=== PATIENT | female | born 1950 | race Native Hawaiian/Other Pacific Islander ===

== ENCOUNTER 2017-08-28 09:37 | Inpatient (IN) | payer MEDICARE ==
[2017-08-28 10:29] LABS: BASO # 0.1 K/uL (0.0-0.2); BASO % 0.8 % (0.0-2.0); EOS # 0.2 K/uL (0.0-0.7); EOS % 1.4 % (0.0-4.0); HEMOGLOBIN 10.9 g/dL (11.0-16.0); LYMPH # 0.7 K/uL (1.0-4.3); LYMPH % 5.3 % (20.0-40.0); MEAN CELL VOLUME 89.4 fL (81.0-99.0); MEAN CORPUSCULAR HEMOGLOBIN 31.5 pg (27.0-31.0); MEAN CORPUSCULAR HGB CONC 35.2 g/dL (33.0-37.0); MONO # 0.7 K/uL (0.0-0.8); NEUT # 12.2 K/uL (1.8-7.0); NEUT % 87.5 % (50.0-75.0); PLATELET COUNT 381 K/uL (130-400); RBC 3.45 Mil/uL (3.80-5.20); RED CELL DISTRIBUTION WIDTH 13.1 % (11.5-14.5)
[2017-08-28 10:41] LABS: INR 0.9; PROTHROMBIN TIME 10.5 SECONDS (9.7-12.2)
--- NOTE | 2017-08-28 10:55 | RAD ---
PROCEDURE: Left knee dated 08/28/2017. HISTORY: Pain. COMPARISON: No prior study available for comparison. FINDINGS: BONES: There is a a well-circumscribed -sharply marginated elliptical shaped lucency with a sclerotic peripheral rim with what appears represent a internal cartilaginous matrix. Lesion measures approximately 2.28 x 1.5 x 1.6 cm and is felt to represent a benign lesion; rule out chondromyxoid fibroma or possibly giant cell tumor. JOINTS: Mild tricompartmental degenerative osteoarthritis. Note is made of a well-circumscribed -sharply marginated elliptical shaped lucency with a sclerotic peripheral rim. . Rule out internal derangement. Rule out infection. JOINT EFFUSION: Very large suprapatellar joint effusion is present. Rule out internal derangement. Possibility of infection must be considered as well. OTHER FINDINGS: None. IMPRESSION: Large suprapatellar joint effusion. Rule out internal derangement versus infection. There is also a elliptical shaped lucent lesion within the medial femoral condyles that exhibits sclerotic rim what appears to be a with a cartilaginous and/or bony matrix. Rule out chondromyxoid fibroma or possibly giant cell tumor. Followup MRI is suggested
[2017-08-28 10:59] LABS: BANDS 1 % (0-2); EOSINOPHIL 1 % (0-4); LYMPHOCYTE 5 % (20-40); MONOCYTE 5 % (0-10); NEUTROPHIL 88 % (50-75); PLATELET ESTIMATE NORMAL (NORMAL); TOTAL CELLS COUNTED 100
[2017-08-28 11:00] LABS: ANISOCYTOSIS SLIGHT; HYPOCHROMIC SLIGHT; POLYCHROMIC SLIGHT
[2017-08-28 11:09] LABS: ALB/GLOB RATIO 1.1 (1.0-2.1); ALBUMIN 4.2 g/dL (3.5-5.0); CALCIUM 11.9 mg/dl (8.6-10.4)
--- NOTE | 2017-08-28 11:29 | C.PDOC ---
History Of Present Illness 67 year old female presents to the ED c/o atraumatic pain knee and swelling that occurred this morning [employer]. Patient undergoes peritoneal dialysis with daily exchanges. Patient offers no other complaints, fever, chills, nausea, vomit, diarrhea. Time Seen by Provider: 08/28/17 10:00 Chief Complaint (Nursing): Lower Extremity Problem/Injury History Per: Patient History/Exam Limitations: no limitations Onset/Duration Of Symptoms: Hrs Current Symptoms Are (Timing): Still Present Recent travel outside of the [place]: No Additional History Per: Patient - Knee Description Of Injury: Other (atraumatic) Currently Unable To: Bend Or Move Past Medical History Reviewed: Historical Data, Nursing Documentation, Vital Signs Vital Signs: Last Vital Signs Temp 98.2 F 08/28/17 13:26 Pulse 104 H 08/28/17 13:26 Resp 20 08/28/17 13:26 BP 149/95 H 08/28/17 13:26 Pulse Ox 100 08/28/17 13:26 - Medical History PMH: HTN, End Stage Renal Disease Surgical History: No Surg Hx Family History: States: Unknown Family Hx - Social History Hx Alcohol Use: No Hx Substance Use: No - Immunization History Hx Tetanus Toxoid Vaccination: No Hx Influenza Vaccination: Yes Hx Pneumococcal Vaccination: No Review Of Systems Constitutional: Negative for: Fever, Chills Cardiovascular: Negative for: Chest Pain Respiratory: Negative for: Shortness of Breath Gastrointestinal: Negative for: Abdominal Pain Musculoskeletal: Positive for: Leg Pain Skin: Negative for: Rash Neurological: Negative for: Weakness, Numbness Physical Exam - Physical Exam Appears: Non-toxic, No Acute Distress Skin: Normal Color, Warm, Dry Head: Atraumatic, Normacephalic Eye(s): bilateral: Normal Inspection Nose: No Discharge Oral Mucosa: Moist Neck: Normal ROM, Supple Extremity: Normal ROM, Tenderness (with effusion left knee ), No Calf Tenderness , Capillary Refill (< 2 seconds), Swelling (left knee ), Other (No redness in the skin, no coloric change) Pulses: Left Dorsalis Pedis: Normal, Right Dorsalis Pedis: Normal Neurological/Psych: Oriented x3, Normal Motor, Normal Sensation Gait: Steady ED Course And Treatment - Laboratory Results Result Diagrams: 08/28/17 10:25 08/28/17 10:25 O2 Sat by Pulse Oximetry: 100 (On RA) Pulse Ox Interpretation: Normal - Other Rad Left Knee X-Ray X-Ray: Viewed By Me, Read By Radiologist Interpretation: PROCEDURE: Left knee dated 08/28/2017. HISTORY: Pain. COMPARISON: No prior study available for comparison. FINDINGS: BONES: There is a a well-circumscribed -sharply marginated elliptical shaped lucency with a sclerotic peripheral rim with what appears represent a internal cartilaginous matrix. Lesion measures approximately 2.28 x 1.5 x 1.6 cm and is felt to represent a benign lesion; rule out chondromyxoid fibroma or possibly giant cell tumor. JOINTS: Mild tricompartmental degenerative osteoarthritis. Note is made of a well-circumscribed -sharply marginated elliptical shaped lucency with a sclerotic peripheral rim. . Rule out internal derangement. Rule out infection. JOINT EFFUSION: Very large suprapatellar joint effusion is present. Rule out internal derangement. Possibility of infection must be considered as well. OTHER FINDINGS: None. IMPRESSION: Large suprapatellar joint effusion. Rule out internal derangement versus infection. There is also a elliptical shaped lucent lesion within the medial femoral condyles that exhibits sclerotic rim what appears to be a with a cartilaginous and/or bony matrix. Rule out chondromyxoid fibroma or possibly giant cell tumor. Followup MRI is suggested Medical Decision Making Medical Decision Making: Assessment: hyponatremia, joint effusion Plan: * Left knee X-Ray * Lower extremities MRI * Blood culture * Rocephin 1 gm in 100 ml IVPB * Vancomycin 1 gm in 250 ml IVPB Discussed case with PMD Dr. Varner who requests and ortho consult by Dr. Carney. Radiologist suggest and MRI to be done. Disposition Discussed With : Pattie Locke-Gardenia Doctor Will See Patient In The: Hospital Counseled Patient/Family Regarding: Studies Performed, Diagnosis - Disposition Disposition: HOSPITALIZED Disposition Time: 11:29 Condition: FAIR - Clinical Impression Clinical Impression: Hyponatremia, Knee effusion, left - Scribe Statement The provider has reviewed the documentation as recorded by the Scribe Aaron Valentine All medical record entries made by the Scribe were at my direction and personally dictated by me. I have reviewed the chart and agree that the record accurately reflects my personal performance of the history, physical exam, medical decision making, and the department course for this patient. I have also personally directed, reviewed, and agree with the discharge instructions and disposition.
[2017-08-28] MEDS ORDERED: cefTRIAXone IV 1 gm in Dextros 50 ML IVPB ONE (13:21)
[2017-08-28] MEDS ORDERED: Vancomycin 1 GM in Sodium Chloride 0.9% 200 ML IVPB STA (13:28)
--- NOTE | 2017-08-28 17:39 | CP.PCM.HP ---
History of Present Illness - History of Present Illness History of Present Illness: This is a 67 y/o female with history of hypertension, ESRD on nightly peritoneal dialysis who was brought to the ER by family because of sudden pain and swelling of the L knee early this morning. Patient denies any history of trauma to he knee. She denies any history of fever. She claims that she is not using any anticoagulant when she dialyzes herself at night. No other areas of bleeding noted anywhere. Blood tests in the ER showed hyponatremia, hypercalcemia andelevated BUN/creatinine. Her BP was also reportedly quite elevated in the last few days [employer]. She was admitted for further evaluation and management. Present on Admission - Present on Admission Any Indicators Present on Admission: No History of DVT/PE: No History of Uncontrolled Diabetes: No Urinary Catheter: No Decubitus Ulcer Present: No Review of Systems - Review of Systems All systems: reviewed and no additional remarkable complaints except - Constitutional Constitutional: As Per HPI - EENT Eyes: As Per HPI Ears: As Per HPI, Abnormal Hearing - Gastrointestinal Gastrointestinal: As Per HPI, Belching - Musculoskeletal Musculoskeletal: Joint Swelling, Limited Range of Motion, Numbness ( ), Stiffness ( ) Past Patient History - Infectious Disease Hx of Infectious Diseases: None ( ) - Past Medical History & Family History Past Medical History?: Yes - Past Social History Smoking Status: Never Smoked Home Situation {Lives}: With Family ( ) - CARDIAC Hx Cardiac Disorders: No ( ) Hx Congestive Heart Failure: No Hx Hypertension: Yes - PULMONARY Hx Respiratory Disorders: No - NEUROLOGICAL Hx Neurological Disorder: No - RENAL Other/Comment: Patient is on peritoneal dialysis for the last five years. daily HS treatments. - ENDOCRINE/METABOLIC Hx Endocrine Disorders: No Hx Diabetes Mellitus Type 2: No - HEMATOLOGICAL/ONCOLOGICAL Hx Blood Disorders: No - MUSCULOSKELETAL/RHEUMATOLOGICAL Hx Arthritis: Yes - GASTROINTESTINAL Hx Gastrointestinal Disorders: No - PSYCHIATRIC Hx Psychophysiologic Disorder: No Hx Substance Use: No - SURGICAL HISTORY Hx Surgeries: Yes Other/Comment: peritoneal dialysis placement. protruding umbilical hernia repair. - ANESTHESIA Hx Anesthesia: Yes Hx Anesthesia Reactions: No Hx Malignant Hyperthermia: No Meds Allergies/Adverse Reactions: Allergies Allergy/AdvReac Type Severity Reaction Status Date / Time No Known Allergies Allergy Verified 08/28/17 09:47 Physical Exam - Constitutional Appears: No Acute Distress - Head Exam Head Exam: NORMOCEPHALIC - Eye Exam Eye Exam: Normal appearance - ENT Exam ENT Exam: Mucous Membranes Moist, Normal Exam - Respiratory Exam Respiratory Exam: Clear to Auscultation Bilateral, NORMAL BREATHING PATTERN - Cardiovascular Exam Cardiovascular Exam: REGULAR RHYTHM, +S1, +S2 - GI/Abdominal Exam GI & Abdominal Exam: Normal Bowel Sounds, Soft - Extremities Exam Extremities exam: Positive for: joint swelling Additional comments: L knee markedly swollen and tender to pressure, warm to touch. ROM reduced, R knee wnl - Neurological Exam Neurological exam: Alert, Oriented x3 - Psychiatric Exam Psychiatric exam: Normal Affect, Normal Mood - Skin Skin Exam: Normal Color, Warm Results - Vital Signs Recent Vital Signs: Last Vital Signs Temp 97.8 F 08/28/17 17:27 Pulse 104 H 08/28/17 15:07 Resp 20 08/28/17 15:07 BP 189/100 H 08/28/17 15:07 Pulse Ox 98 08/28/17 15:07 - Labs Result Diagrams: 08/29/17 11:31 08/29/17 07:27 Labs: Laboratory Results - last 24 hr 08/28/17 08/28/17 08/28/17 10:25 10:25 10:25 WBC 14.0 H RBC 3.45 L Hgb 10.9 L Hct 30.8 L MCV 89.4 MCH 31.5 H MCHC 35.2 RDW 13.1 Plt Count 381 MPV 7.0 L Neut % (Auto) 87.5 H Lymph % (Auto) 5.3 L [place] % (Auto) 5.0 Eos % (Auto) 1.4 Baso % (Auto) 0.8 Neut # (Auto) 12.2 H Lymph # (Auto) 0.7 L [place] # (Auto) 0.7 Eos # (Auto) 0.2 Baso # (Auto) 0.1 Neutrophils % (Manual) 88 H Band Neutrophils % 1 Lymphocytes % (Manual) 5 L Monocytes % (Manual) 5 Eosinophils % (Manual) 1 Platelet Estimate Normal Polychromasia Slight Hypochromasia (manual) Slight Anisocytosis (manual) Slight PT 10.5 INR 0.9 APTT 31 Sodium 123 L Potassium 3.6 Chloride 81 L Carbon Dioxide 23 Anion Gap 23 H BUN 33 H Creatinine 7.7 H* Est GFR ( Amer) 6 Est GFR (Non-Af Amer) 5 Random Glucose 128 H Calcium 11.9 H Total Bilirubin 0.6 AST 34 ALT 8 L Alkaline Phosphatase 110 Total Protein 8.1 Albumin 4.2 Globulin 3.9 Albumin/Globulin Ratio 1.1 Assessment & Plan (1) Knee effusion, left Assessment and Plan: R/O Hemarthrosis vs infection as possible causes of sudden knee swelling. Patient is afebrile at this time. Orthopedic consultation requested for possible drainage of effusion Question of antibiotic coverage despite lack of evidence for infectious cause at this time. Status: Acute (2) Hyponatremia Assessment and Plan: Na- 123. IVF held for now. Nephrology consultation also ordered. Status: Acute (3) ESRD (end stage renal disease) on dialysis Assessment and Plan: Patient on daily peritoneal dialysis. Nephrology consultation requested. Status: Acute (4) Hypertension Assessment and Plan: fluctuating. to restart back all his antihypertensive meds. Status: Acute (5) Hypercalcemia associated with chronic dialysis Status: Acute Decision To Admit - Pt Status Changed To: Hospital Disposition Of: Inpatient - Admit Certification Admit to Inpatient:: After my assessment, the patient will require hospitalization for at least two midnights. This is because of the severity of symptoms shown, intensity of services needed, and/or the medical risk in this patient being treated as an outpatient. - InPatient: Physician Admission Certification:: After my assessment, the patient will require hospitalization for at least two midnights. This is because of the severity of symptoms shown, intensity of services needed, and/or the medical risk in this patient being treated as an outpatient. - . Bed Request Type: Regular Admitting Physician: Pattie Hudson
--- NOTE | 2017-08-28 20:55 | CP.PCM.CON ---
History of Present Illness - History of Present Illness History of Present Illness: pt is seen and examined, full consult is dictated #[id number] 1. ESRD on ccpd ( cycler ? 5 lit x2 bags) 2. HTN 3. Left knee effusion will start manual with dianel solution 2.5% solution q 6 hrs check cmp in am follow up with ortho c/w current meds Past Patient History - Infectious Disease Hx of Infectious Diseases: None ( ) - Past Medical History & Family History Past Medical History?: Yes - Past Social History Smoking Status: Never Smoked Home Situation {Lives}: With Family ( ) - CARDIAC Hx Cardiac Disorders: No ( ) Hx Congestive Heart Failure: No Hx Hypertension: Yes - PULMONARY Hx Respiratory Disorders: No - NEUROLOGICAL Hx Neurological Disorder: No - RENAL Other/Comment: Patient is on peritoneal dialysis for the last five years. daily HS treatments. - ENDOCRINE/METABOLIC Hx Endocrine Disorders: No Hx Diabetes Mellitus Type 2: No - HEMATOLOGICAL/ONCOLOGICAL Hx Blood Disorders: No - MUSCULOSKELETAL/RHEUMATOLOGICAL Hx Arthritis: Yes - GASTROINTESTINAL Hx Gastrointestinal Disorders: No - PSYCHIATRIC Hx Psychophysiologic Disorder: No Hx Substance Use: No - SURGICAL HISTORY Hx Surgeries: Yes Other/Comment: peritoneal dialysis placement. protruding umbilical hernia repair. - ANESTHESIA Hx Anesthesia: Yes Hx Anesthesia Reactions: No Hx Malignant Hyperthermia: No Meds Allergies/Adverse Reactions: Allergies Allergy/AdvReac Type Severity Reaction Status Date / Time No Known Allergies Allergy Verified 08/28/17 09:47 - Medications Medications: Current Medications Acetaminophen (Tylenol 325mg Tab) 650 mg PO Q4 PRN PRN Reason: Pain, moderate (4-7) Last Admin: 08/28/17 17:27 Dose: 650 mg Calcitriol (Rocaltrol) 0.25 mcg PO DAILY [facility] Cinacalcet (Sensipar) 30 mg PO DAILY [facility] Hydrochlorothiazide (Microzide) 12.5 mg PO BID [facility] Last Admin: 08/28/17 17:14 Dose: 12.5 mg Losartan Potassium (Cozaar) 50 mg PO BID [place] Last Admin: 08/28/17 17:14 Dose: 50 mg Results - Vital Signs Recent Vital Signs: Last Vital Signs Temp 97.8 F 08/28/17 17:27 Pulse 104 H 08/28/17 15:07 Resp 20 08/28/17 15:07 BP 189/100 H 08/28/17 15:07 Pulse Ox 98 08/28/17 15:07 - Labs Result Diagrams: 08/28/17 10:25 08/28/17 10:25 Labs: Laboratory Results - last 24 hr 08/28/17 08/28/17 08/28/17 10:25 10:25 10:25 WBC 14.0 H RBC 3.45 L Hgb 10.9 L Hct 30.8 L MCV 89.4 MCH 31.5 H MCHC 35.2 RDW 13.1 Plt Count 381 MPV 7.0 L Neut % (Auto) 87.5 H Lymph % (Auto) 5.3 L [place] % (Auto) 5.0 Eos % (Auto) 1.4 Baso % (Auto) 0.8 Neut # (Auto) 12.2 H Lymph # (Auto) 0.7 L [place] # (Auto) 0.7 Eos # (Auto) 0.2 Baso # (Auto) 0.1 Neutrophils % (Manual) 88 H Band Neutrophils % 1 Lymphocytes % (Manual) 5 L Monocytes % (Manual) 5 Eosinophils % (Manual) 1 Platelet Estimate Normal Polychromasia Slight Hypochromasia (manual) Slight Anisocytosis (manual) Slight PT 10.5 INR 0.9 APTT 31 Sodium 123 L Potassium 3.6 Chloride 81 L Carbon Dioxide 23 Anion Gap 23 H BUN 33 H Creatinine 7.7 H* Est GFR ( Amer) 6 Est GFR (Non-Af Amer) 5 Random Glucose 128 H Calcium 11.9 H Total Bilirubin 0.6 AST 34 ALT 8 L Alkaline Phosphatase 110 Total Protein 8.1 Albumin 4.2 Globulin 3.9 Albumin/Globulin Ratio 1.1
--- NOTE | 2017-08-29 05:05 | CON ---
DATE: 08/28/2017 RENAL CONSULTATION LOCATION: The patient is located room 365, bed A. REQUESTED BY: Pattie Locke MD REASON FOR RENAL CONSULTATION: End-stage renal disease, on peritoneal dialysis cycler, for continuation of the dialysis. HISTORY OF PRESENT ILLNESS: Mrs. Cade is a 67 years old very pleasant elderly [place] female with a past medical history significant for longstanding hypertension for many years, end-stage renal disease, on peritoneal dialysis for the last 5 years following in [facility], was admitted with the chief complaints of left knee joint swelling and slight pain for the last few days. Denies any fever. Denies any cough. Denies any chest pain or palpitation. Denies any nausea, vomiting, diarrhea. Denies any abdominal pain. Last cycler was yesterday night. PAST MEDICAL HISTORY: Significant for hypertension for many many years and end-stage renal disease, on peritoneal dialysis times 5 years. PAST SURGICAL HISTORY Status post Tenckhoff catheter. ALLERGIES NO KNOWN DRUG ALLERGIES. MEDICATIONS: Home medications include losartan with hydrochlorothiazide 1 tablet daily 50 and 12.5 mg and Sensipar 30 mg p.o. daily. Her current medications in the hospital include losartan 50 mg p.o. b.i.d. and hydrochlorothiazide 12.5 mg p.o. b.i.d. and Sensipar 30 mg p.o. daily and Tylenol 650 mg p.o. every 4 hours p.r.n. SOCIAL HISTORY No smoking. No alcohol. No drugs. PERSONAL HISTORY: She is , and she has three daughters. She is a retired [employer]. FAMILY HISTORY: Not significant. REVIEW OF SYSTEMS: Significant for left knee joint swelling and slight pain. All other review of systems are reviewed and are negative. PHYSICAL EXAMINATION: VITAL SIGNS: As follows, as of 08/28/2017, blood pressure 149/95, pulse 104, respirations 20, temperature 98.2, saturation 100%. Height 5 feet 1 inch, weight is 144 pounds. BMI 27.2. GENERAL: Mrs. Cade is a 67 years old elderly [place] female, very pleasant, well-built, well-nourished, not in distress. HEENT: Pupils normal and reactive to light and accommodation. Conjunctivae pink. Sclerae anicteric. Tongue is moist. Trachea is midline. LUNGS: Symmetric on both sides. Bilateral breath sounds present. Clear on auscultation. CVS: [place] at the fifth intercostal space, midclavicular line. S1, S2 audible. No murmur or gallop. ABDOMEN: Normal in appearance. Soft, tympanic. No guarding. No rigidity. No hepatosplenomegaly. The patient has a Tenckhoff catheter present. [employer]: The patient is alert, awake, and oriented x3. Nonfocal neuro examination. Cranial nerves II through XII grossly intact. Sensory and motor system is within normal limits. EXTREMITIES: No cyanosis, no clubbing, no edema. Left knee joint, left knee joint was swollen and also slight tenderness and suprapatellar effusion is present. LABORATORY DATA: Include as follows, as of 08/28/2017, WBC 14, hemoglobin 10.9, hematocrit is 30.8, platelets 381. Neutrophils 88, bands 1, lymph 5, monos 5, and eosinophils 1. PT 10.5, INR 0.9, and PTT 31. Sodium 123, potassium 3.6, chloride 81, CO2 of 23, BUN 33, creatinine 7.7, glucose is 128, calcium 11.9. Total bili 0.6. AST 34, ALT 8, alkaline phos 110, total protein 8.1, albumin 4.2. The other reports, x-ray of the knee joint as of 08/28/2017, there is a well-circumscribed sharply marginated elliptical shaped lucency with a sclerotic peripheral rim with what appears representing internal cartilaginous matrix lesion, measures approximately 2.28 x 1.5 x 1.6 cm, and it was felt to represent a benign lesion, rule out chondromyxoid fibroma or possibly gentle tumor. MRI of knee report is pending. IMPRESSION: In summary, Mrs. Cade is a 67 years old elderly female with hypertension, end-stage renal disease, on peritoneal dialysis for 5 years with left knee swelling and slight pain for few days. 1. End-stage renal disease. Continue peritoneal dialysis daily. A cycler is not available in the hospital. We will continue manual exchanges. The patient wants to bring the machine if she needs to stay in the hospital for more than 1 or 2 days. We will continue manual exchanges 2 liters solution 2.5% every 6 hours with a dwelling time 10 minutes, and dwelling time is 5-1/2 hours and dwell out is 20 minutes, and also monitor I's and O's, intake and output. 2. Hypertension. Continue losartan and also hydrochlorothiazide. 3. Hyponatremia, most likely secondary to hydrochlorothiazide induced. 4. Hypercalcemia, most likely secondary to thiazide diuretics and also calcitriol, cannot rule out malignancy. PLAN: We will repeat labs in a.m., and also we will check PTH intact phosphorus level and PTH related peptide also. left knee effusion with lesion, rule out benign tumor, rule out malignancy, and also check serum uric acid level in a.m. Case discussed with Dr. Pattie Locke in rounds. We will follow with you. Thank you for allowing me to participate in your patient's care. Junior Deluca MD
[2017-08-29] MEDS ORDERED: Morphine 4 MG/ML VIAL IVP STA (06:06)
[2017-08-29 08:17] LABS: ALB/GLOB RATIO 1.1 (1.0-2.1); ALBUMIN 3.5 g/dL (3.5-5.0)
[2017-08-29] MEDS: Oxycodone/Acetaminophen 5/325 mg Tab PO PRN ×2 (09:17→20:15)
--- NOTE | 2017-08-29 10:43 | MRI ---
MRI left knee History: Left knee pain. Left knee swelling. Comparison: X-ray dated 08/28/2017 Technique: Multi-echo multiplanar sequences were performed through the left knee without the use of intravenous contrast. Findings: Motion artifact limits evaluation. Large suprapatellar joint effusion with associated synovial debris and hypertrophy. Moderate lobulated fluid intensity signal foci seen within the posterior knee within the soft tissues measuring 1.9 x 3.8 x 3.7 centimeters which may represent multilobulated synovial cyst and or ganglia. Thinning and attenuation of the visualized anterior cruciate ligament suggestive for a low grade sprain and or mild partial tearing. Posterior cruciate ligament is preserved. Transverse linear oblique signal seen within the body and posterior horn of the medial meniscus extending to the inferior articular surface suggestive for a tear. Globular increased signal seen within the posterior horn of the lateral meniscus. Low-grade sprain of the medial collateral ligament. Lateral collateral ligament complex structures are preserved. Mild distal quadriceps tendinopathy. Patellar tendon is preserved. Focal cartilage thinning and loss overlying the medial patellar facet. Focal cartilage thinning and loss involving the anterior to midportion of the medial compartment of the femorotibial joint spaces well as the anterior aspect of the lateral femoral condyle. Signal change in the adjacent marrow of the anterior aspect of the lateral femoral condyle demonstrating decreased T1 signal and increased STIR signal suggestive for osteochondral change. Additional considerations may include bone bruising versus subchondral osseous injury versus additional etiology. At the posterior aspect of the medial femoral condyle, there is a prominent lesion measuring 2.5 x 2.0 x 2.1 centimeters. The lesion is primarily cystic in appearance demonstrating increased T2 and STIR signal. There is some internal decreased T1 signal within the matrix with associated surrounding reactive edema. There is a suggestion of cortical discontinuity along the posterior cortex of the lesion. This may indicate some cortical disruption. Correlation with bony CT would be helpful to better evaluate the osseous matrix at this level. This is of uncertain clinical etiology and may represent a chondroid lesion such as a chondromyxoid fibroma versus additional etiology. Additional considerations may include a cystic bone lesion versus complex cystic bone lesion with associated cortical disruption posteriorly versus additional etiologies. Clinical correlation. Impression: Motion artifact limits evaluation. 1. Large suprapatellar joint effusion with associated synovial debris and hypertrophy. 2. At the posterior aspect of the medial femoral condyle, there is a prominent lesion measuring 2.5 x 2.0 x 2.1 centimeters. The lesion is primarily cystic in appearance demonstrating increased T2 and STIR signal. There is some internal decreased T1 signal within the matrix with associated surrounding reactive edema. There is a suggestion of cortical discontinuity along the posterior cortex of the lesion. This may indicate some cortical disruption. Correlation with bony CT would be helpful to better evaluate the osseous matrix at this level. This is of uncertain clinical etiology and may represent a chondroid lesion such as a chondromyxoid fibroma versus additional etiology. Additional considerations may include a cystic bone lesion versus complex cystic bone lesion with associated cortical disruption posteriorly versus additional etiologies. Clinical correlation. 3. Moderate lobulated fluid intensity signal foci seen within the posterior knee within the soft tissues measuring 1.9 x 3.8 x 3.7 centimeters which may represent multilobulated synovial cyst and or ganglia. 4. Thinning and attenuation of the visualized anterior cruciate ligament suggestive for a low grade sprain and or mild partial tearing. 5. Transverse linear oblique signal seen within the body and posterior horn of the medial meniscus extending to the inferior articular surface suggestive for a tear. 6. Globular increased signal seen within the posterior horn of the lateral meniscus. 7. Low-grade sprain of the medial collateral ligament. 8. Mild distal quadriceps tendinopathy. 9. Focal cartilage thinning and loss overlying the medial patellar facet. 10. Focal cartilage thinning and loss involving the anterior to midportion of the medial compartment of the femorotibial joint spaces well as the anterior aspect of the lateral femoral condyle. Signal change in the adjacent marrow of the anterior aspect of the lateral femoral condyle demonstrating decreased T1 signal and increased STIR signal suggestive for osteochondral change. Additional considerations may include bone bruising versus subchondral osseous injury versus additional etiology. These findings were preliminarily reported at 6:02 p.m. on 08/28/[address] Ananda Gonzalez from [facility].
[2017-08-29 11:41] LABS: BASO # 0.1 K/uL (0.0-0.2); BASO % 0.5 % (0.0-2.0); EOS # 0.1 K/uL (0.0-0.7); HEMOGLOBIN 9.4 g/dL (11.0-16.0); LYMPH # 0.7 K/uL (1.0-4.3); LYMPH % 5.7 % (20.0-40.0); MEAN CELL VOLUME 89.3 fL (81.0-99.0); MEAN CORPUSCULAR HEMOGLOBIN 31.9 pg (27.0-31.0); MEAN CORPUSCULAR HGB CONC 35.7 g/dL (33.0-37.0); MEAN PLATELET VOLUME 6.9 fL (7.2-11.7); MONO # 0.7 K/uL (0.0-0.8); MONO % 5.9 % (0.0-10.0); NEUT # 10.7 K/uL (1.8-7.0); NEUT % 86.9 % (50.0-75.0); PLATELET COUNT 313 K/uL (130-400); RBC 2.93 Mil/uL (3.80-5.20); RED CELL DISTRIBUTION WIDTH 12.9 % (11.5-14.5); WHITE BLOOD COUNT 12.3 K/uL (4.8-10.8)
[2017-08-29 11:47] LABS: FLUID TYPE SYNOVIAL FLUID
[2017-08-29 12:04] LABS: EOSINOPHIL 2 % (0-4); LYMPHOCYTE 7 % (20-40); MONOCYTE 5 % (0-10); NEUTROPHIL 86 % (50-75); TOTAL CELLS COUNTED 100
[2017-08-29 12:05] LABS: ANISOCYTOSIS SLIGHT; PLATELET ESTIMATE NORMAL (NORMAL)
[2017-08-29 12:06] LABS: TOXIC GRANULATION PRESENT
[2017-08-29] MEDS: Sodium Chloride 0.9% 1,000 ML IV SCH (12:10)
--- NOTE | 2017-08-29 12:27 | CP.PCM.PN ---
Subjective - Date & Time of Evaluation Date of Evaluation: 08/29/17 Time of Evaluation: 12:15 - Subjective Subjective: -patient comfortable lying down -finished peritoneal dialysis earlier today -Nephro consult appreciated Objective - Vital Signs/Intake and Output Vital Signs (last 24 hours): Temp Pulse Resp BP Pulse Ox 98.1 F 93 H 20 173/97 H 97 08/29/17 08:17 08/29/17 10:23 08/29/17 08:17 08/29/17 10:23 08/29/17 08:17 Intake and Output: 08/29/17 08/29/17 06:59 18:59 Intake Total 415 Balance 415 - Medications Medications: Current Medications Acetaminophen (Tylenol 325mg Tab) 650 mg PO Q4 PRN PRN Reason: Pain, moderate (4-7) Last Admin: 08/28/17 17:27 Dose: 650 mg Amlodipine Besylate (Norvasc) 5 mg PO DAILY [facility] Last Admin: 08/29/17 09:18 Dose: 5 mg Cinacalcet (Sensipar) 30 mg PO DAILY [facility] Last Admin: 08/29/17 09:18 Dose: 30 mg Heparin Sodium (Porcine) (Heparin) 5,000 units SC Q12 [facility] Last Admin: 08/29/17 09:26 Dose: 5,000 units Hydrochlorothiazide (Microzide) 12.5 mg PO BID [facility] Last Admin: 08/29/17 09:04 Dose: 12.5 mg Sodium Chloride (Sodium Chloride 0.9%) 1,000 mls @ 60 mls/hr IV .[id number] [facility] Last Admin: 08/29/17 12:10 Dose: 60 mls/hr Losartan Potassium (Cozaar) 50 mg PO BID [facility] Last Admin: 08/29/17 09:04 Dose: 50 mg Oxycodone/Acetaminophen (Percocet 5/325 Mg Tab) 1 tab PO TID PRN PRN Reason: Pain, severe (8-10) Stop: 09/01/17 10:01 Last Admin: 08/29/17 09:17 Dose: 1 tab - Labs Labs: 08/29/17 11:31 08/29/17 07:27 PT 10.5 SECONDS (9.7-12.2) 08/28/17 10:25 INR 0.9 08/28/17 10:25 APTT 31 SECONDS (21-34) 08/28/17 10:25 Assessment and Plan (1) Knee effusion, left Status: Acute (2) Hyponatremia Status: Acute (3) ESRD (end stage renal disease) on dialysis Status: Acute (4) Hypertension Status: Acute (5) Hypercalcemia associated with chronic dialysis Status: Acute
[2017-08-29 13:05] LABS: CRYSTAL TYPE CalciumPyrophosphate; FLUID CRYSTALS POSITIVE (NEGATIVE)
[2017-08-29 13:26] LABS: SF GROSS APPEARANCE CLOUDY (CLEAR); SYNOVIAL FLUID MONO/MACROPHAGE 0 % (0-0)
--- NOTE | 2017-08-29 14:18 | CT ---
CT left knee History: Left knee pain. Joint swelling. Comparison: MRI dated 08/28/2017 Technique: Multiple contiguous axial images were performed through the left knee without the use of intravenous contrast. Subsequently, sagittal and coronal reformatted images were obtained. This CT exam was performed using one or more of the following dose reduction techniques: Automated exposure control, adjustment of the mA and/or kV according to patient size, and/or use of iterative reconstruction technique. Findings: Please see separate MRI report for evaluation of soft tissue findings. Again identified within the posterior aspect of the medial femoral condyle is a lucent osseous lesion measuring 1.8 x 1.4 x 2.1 centimeters. There is cortical irregularity and or destruction at the posterior cortex of the medial femoral condyle at the site of the osseous lesion suggestive for cortical breakthrough. There are multiple internal ossified and or partially calcified septations in a multilobulated appearance. Margins of the lesion appear thin-walled. This is of uncertain clinical etiology. This may represent a complex intraosseous synovial cyst and or complex ganglia with associated cortical breakthrough and extraosseous extension. Alternatively, this may represent a chondroid lesion such is a chondromyxoid fibroma with associated cortical breakthrough. Additional etiologies are not excluded. Clinical correlation. Large suprapatellar joint effusion. Moderate narrowing of the patellofemoral compartment with severe chondromalacia patella at the lateral compartment of the femorotibial joint space with prominent osteochondral change noted at the posterior lateral patella as well as the anterior aspect of the lateral femoral condyle. Lateral subluxation of the patella. Moderate medial compartment joint space narrowing with subchondral sclerosis. Suggestion of a small loose osteochondral body measuring 5 millimeters at the anterior aspect of the femorotibial joint space. Enthesopathic change at the anterior inferior bony patella. Multilobulated cystic foci measuring up to 4.3 centimeters at the posterior aspect of the femorotibial joint space which may represent complex synovial cyst and or ganglia. Impression: Please see separate MRI report for evaluation of soft tissue findings. 1. Again identified within the posterior aspect of the medial femoral condyle is a lucent osseous lesion measuring 1.8 x 1.4 x 2.1 centimeters. There is cortical irregularity and or destruction at the posterior cortex of the medial femoral condyle at the site of the osseous lesion suggestive for cortical breakthrough. There are multiple internal ossified and or partially calcified septations in a multilobulated appearance. Margins of the lesion appear thin-walled. This is of uncertain clinical etiology. This may represent a complex intraosseous synovial cyst and or complex ganglia with associated cortical breakthrough and extraosseous extension. Alternatively, this may represent a chondroid lesion such is a chondromyxoid fibroma with associated cortical breakthrough. Additional etiologies are not excluded. Clinical correlation. 2. Large suprapatellar joint effusion. 3. Moderate narrowing of the patellofemoral compartment with severe chondromalacia patella at the lateral compartment of the femorotibial joint space with prominent osteochondral change noted at the posterior lateral patella as well as the anterior aspect of the lateral femoral condyle. Lateral subluxation of the patella. 4. Moderate medial compartment joint space narrowing with subchondral sclerosis. 5. Suggestion of a small loose osteochondral body measuring 5 millimeters at the anterior aspect of the femorotibial joint space. 6. Enthesopathic change at the anterior inferior bony patella. 7. Multilobulated cystic foci measuring up to 4.3 centimeters at the posterior aspect of the femorotibial joint space which may represent complex synovial cyst and or ganglia.
--- NOTE | 2017-08-29 14:51 | CON ---
DATE: 08/29/2017 REASON FOR CONSULT: Left knee swelling and pain. HISTORY OF PRESENT ILLNESS: This is a 67-year-old female who was admitted to the hospital yesterday with complaints of left knee swelling. According to the patient, she denies any history of trauma whatsoever. She said swelling began approximately 3 days ago. She denies any fevers or chills at home. She said she was able to bend it, but does have pain. She denies any history of gout. PAST MEDICAL HISTORY: Significant for hypertension and end-stage renal disease, on peritoneal dialysis. PHYSICAL EXAMINATION: GENERAL: She is awake, alert, and oriented x3, in no apparent distress. VITAL SIGNS: The patient is afebrile. ASSESSMENT AND PLAN: Examination of the left knee shows a large effusion. Her skin is otherwise intact. There is no erythema. There is no induration. Active range of motion is approximately from -5 to about 75 degrees of flexion. No gross instability is appreciated. Her thighs and calves are otherwise soft and nontender. Grossly, she is neurovascularly intact distally. The left knee was prepped sterilely and approximately 190 mL of serous slightly thick fluid was removed. No gross purulence was aspirated from the knee joint. This fluid was sent for cultures, Gram stain, cell count, as well as crystals. She tolerated the procedure well. X-rays of the left knee shows no acute fractures or dislocations. There does appear to be a lucent lesion in the distal femur and MRI of the left knee shows a large effusion, also popliteal cyst, and again on T2, there is an obvious lesion in the distal femur that lights up, unclear as to the etiology of it. Degenerative changes also noted. IMPRESSION: Left knee effusion and left knee pain with lesion in the distal femur. Then at this point, she has already been started on antibiotics. This may alter the liability of her cultures. For now, we are going to have to continue the antibiotics as per Medicine. We will follow her labs and we will continue to follow the patient. Also, pain medication as needed. Kali Luz MD
[2017-08-29] MEDS ORDERED: Pneumococcal 23-Valent Vaccine IM ONE (16:35)
--- NOTE | 2017-08-29 16:59 | CP.PCM.PN ---
Subjective - Date & Time of Evaluation Date of Evaluation: 08/29/17 Time of Evaluation: 16:58 - Subjective Subjective: pt is seen and examined, follow up consult is dictated #[id number] Objective - Vital Signs/Intake and Output Vital Signs (last 24 hours): Temp Pulse Resp BP Pulse Ox 98.1 F 84 20 157/94 H 97 08/29/17 08:17 08/29/17 15:00 08/29/17 08:17 08/29/17 15:00 08/29/17 08:17 Intake and Output: 08/29/17 08/29/17 06:59 18:59 Intake Total 415 430 Balance 415 430 - Medications Medications: Current Medications Acetaminophen (Tylenol 325mg Tab) 650 mg PO Q4 PRN PRN Reason: Pain, moderate (4-7) Last Admin: 08/28/17 17:27 Dose: 650 mg Amlodipine Besylate (Norvasc) 5 mg PO DAILY [facility] Last Admin: 08/29/17 09:18 Dose: 5 mg Cinacalcet (Sensipar) 30 mg PO DAILY [facility] Last Admin: 08/29/17 09:18 Dose: 30 mg Heparin Sodium (Porcine) (Heparin) 5,000 units SC Q12 [facility] Last Admin: 08/29/17 09:26 Dose: 5,000 units Sodium Chloride (Sodium Chloride 0.9%) 1,000 mls @ 60 mls/hr IV .[id number] [facility] Last Admin: 08/29/17 12:10 Dose: 60 mls/hr Losartan Potassium (Cozaar) 50 mg PO BID [facility] Last Admin: 08/29/17 09:04 Dose: 50 mg Oxycodone/Acetaminophen (Percocet 5/325 Mg Tab) 1 tab PO TID PRN PRN Reason: Pain, severe (8-10) Stop: 09/01/17 10:01 Last Admin: 08/29/17 09:17 Dose: 1 tab - Labs Labs: 08/29/17 11:31 08/29/17 07:27 PT 10.5 SECONDS (9.7-12.2) 08/28/17 10:25 INR 0.9 08/28/17 10:25 APTT 31 SECONDS (21-34) 08/28/17 10:25
--- NOTE | 2017-08-30 02:43 | PN ---
DATE: 08/29/2017 LOCATION: The patient is located in room 365, bed A. REQUESTED BY: Pattie Locke MD REASON FOR FOLLOWUP: End-stage renal disease, on peritoneal dialysis. SUBJECTIVE: Mrs. Cade is a 67-year-old elderly [place] female with a past medical history significant for hypertension and end-stage renal disease, on peritoneal dialysis, who was admitted with a chief complaint of left knee joint swelling and slight pain. The patient was found to have a large suprapatellar effusion, status post aspiration of the left knee effusion this morning. Denies any chest pain or palpitations. Denies any fever or cough. No abdominal pain. No nausea or vomiting. No diarrhea. The patient was started on manual exchanges for the peritoneal dialysis last night and two exchanges since last night, had ultrafiltration of about 1215 mL. Not in distress. PHYSICAL EXAMINATION: GENERAL: Mrs. Cade is a 67 years old elderly female, moderately built, moderately nourished, not in acute distress. VITAL SIGNS: As follows: Blood pressure this afternoon 157/94, pulse 84, respirations 20, temperature 97.7, saturation 97%. Height 5 feet 1 inch, weight is 144 pounds. HEENT: Pupils normal and reactive to light and accommodation. Conjunctivae pink. Sclerae anicteric. Tongue is moist. Trachea is midline. LUNGS: Symmetric on both sides. Bilateral breath sounds present. Clear on auscultation. CVS: [place] at the fifth intercostal space, midclavicular line. S1, S2 audible. No murmur or gallop. ABDOMEN: Normal in appearance, soft, tympanic. No guarding. No rigidity. No hepatosplenomegaly. SMELTER LINER: The patient is alert, awake, oriented x3. Nonfocal neuro examination. Cranial nerves II through XII grossly intact. Sensory and motor system within normal limits. EXTREMITIES: No cyanosis, no clubbing, no edema. Left knee swelling is improved. CURRENT MEDICATIONS: Include as follows: Cozaar 50 mg p.o. b.i.d., subcu heparin 5000 units q.12 hours, amlodipine 5 mg p.o. daily, Percocet 1 tablet p.o. t.i.d., Sensipar 30 mg p.o. daily, IV fluids normal saline at 60 mL/hour, and Tylenol 325 mg, 650 p.o. q.4 hours p.r.n. LABORATORY DATA: Include as follows: As of 08/29/2017: WBC 12.3, hemoglobin 9.4, hematocrit is 26.2, platelets 313; neutrophils 86, lymph is 7, eosinophils 2, and monocytes 5. ESR is 110. Sodium is 121, potassium 3.6, chloride 81, CO2 of 24, BUN 37, creatinine 7.7, glucose is 119, calcium is 11.0, phosphorus is 6. Total bilirubin 0.5, AST 39, ALT 21, alkaline phosphatase 109. Total protein 6, albumin is 3.5, and TSH is 2.41. C-reactive protein is 25.3. Synovial fluid positive for calcium pyrophosphate crystals and wbc is 428 and rbc 9, neutrophils 97 and lymphocytes 3. ASSESSMENT AND PLAN: In summary, Mrs. Cade is a 67-year-old elderly [place] female with a history of hypertension, end-stage renal disease, on peritoneal dialysis, with low sodium and also hypercalcemia and hyperphosphatemia with left knee joint effusion. 1. End-stage renal disease. Continue peritoneal dialysis with cycler at home, and now the patient is receiving manual exchanges 2 L fluid every 6 hours with 2.5% dialysis solution. Continue peritoneal dialysis exchanges q.6 hours. 2. Hypertension. Blood pressure is stable. Agree with Norvasc and hold for systolic blood pressure less than 130. 3. Anemia secondary to renal failure. We will add Epogen 10,000 units subcutaneously x1 in a.m. and also we will add Nephrocaps 1 tablet p.o. daily, also Renvela 800 mg p.o. t.i.d. We will follow with you. Thank you for allowing me to participate in your patient's care. Followup with Orthopedic Surgery, Dr. Luz, for left knee joint effusion and for pseudogout. Junior Deluca MD
[2017-08-30] MEDS: Sodium Chloride 0.9% 1,000 ML IV SCH ×2 (05:34→21:15)
[2017-08-30 08:56] LABS: BASO # 0.1 K/uL (0.0-0.2); BASO % 0.6 % (0.0-2.0); EOS # 0.3 K/uL (0.0-0.7); EOS % 2.3 % (0.0-4.0); HEMOGLOBIN 10.1 g/dL (11.0-16.0); LYMPH # 0.7 K/uL (1.0-4.3); LYMPH % 5.8 % (20.0-40.0); MEAN CELL VOLUME 91.5 fL (81.0-99.0); MEAN CORPUSCULAR HEMOGLOBIN 32.3 pg (27.0-31.0); MEAN CORPUSCULAR HGB CONC 35.3 g/dL (33.0-37.0); MONO # 0.9 K/uL (0.0-0.8); MONO % 7.3 % (0.0-10.0); PLATELET COUNT 336 K/uL (130-400); RBC 3.12 Mil/uL (3.80-5.20); RED CELL DISTRIBUTION WIDTH 13.4 % (11.5-14.5); WHITE BLOOD COUNT 11.9 K/uL (4.8-10.8)
[2017-08-30 09:22] LABS: ALBUMIN 3.4 g/dL (3.5-5.0); CALCIUM 10.9 mg/dl (8.6-10.4)
[2017-08-30 09:38] LABS: EOSINOPHIL 1 % (0-4); LYMPHOCYTE 5 % (20-40); MONOCYTE 9 % (0-10); NEUTROPHIL 85 % (50-75); TOTAL CELLS COUNTED 100
[2017-08-30 09:39] LABS: ANISOCYTOSIS SLIGHT; PLATELET ESTIMATE NORMAL (NORMAL)
[2017-08-30 09:40] LABS: HYPOCHROMIC SLIGHT; POLYCHROMIC SLIGHT
[2017-08-30] MEDS: Oxycodone/Acetaminophen 5/325 mg Tab PO PRN (10:29)
[2017-08-30] MEDS ORDERED: EPOETIN ALFA 10,000 UNIT/ML ML SC ONE (15:19)
--- NOTE | 2017-08-30 15:21 | CP.PCM.PN ---
Subjective - Date & Time of Evaluation Date of Evaluation: 08/30/17 Time of Evaluation: 15:20 - Subjective Subjective: pt is seen and examined, follow up consult is dictated #[id number] will kirill Objective - Vital Signs/Intake and Output Vital Signs (last 24 hours): Temp Pulse Resp BP Pulse Ox 98.7 F 74 20 150/73 98 08/30/17 09:28 08/30/17 09:28 08/30/17 09:28 08/30/17 09:28 08/30/17 09:28 Intake and Output: 08/30/17 08/30/17 06:59 18:59 Intake Total 1460 780 Output Total 50 75 Balance 1410 705 - Medications Medications: Current Medications Acetaminophen (Tylenol 325mg Tab) 650 mg PO Q4 PRN PRN Reason: Pain, moderate (4-7) Last Admin: 08/30/17 08:25 Dose: 650 mg Amlodipine Besylate (Norvasc) 5 mg PO DAILY [facility] Last Admin: 08/30/17 09:35 Dose: 5 mg Cinacalcet (Sensipar) 30 mg PO DAILY [facility] Last Admin: 08/30/17 09:34 Dose: 30 mg Epoetin Gerry (Procrit) 10,000 unit SC ONCE ONE Stop: 08/30/17 15:20 Famotidine (Pepcid) 20 mg PO BID [facility] Last Admin: 08/30/17 10:55 Dose: 20 mg Heparin Sodium (Porcine) (Heparin) 5,000 units SC Q12 [facility] Last Admin: 08/30/17 09:34 Dose: 5,000 units Sodium Chloride (Sodium Chloride 0.9%) 1,000 mls @ 60 mls/hr IV .[id number] [facility] Last Admin: 08/30/17 05:34 Dose: 60 mls/hr Losartan Potassium (Cozaar) 50 mg PO BID [facility] Last Admin: 08/30/17 09:36 Dose: 50 mg Naproxen (An[facility]rox Ds) [facility] Oxycodone/Acetaminophen (Percocet 5/325 Mg Tab) 1 tab PO TID PRN PRN Reason: Pain, severe (8-10) Stop: 09/01/17 10:01 Last Admin: 08/30/17 10:29 Dose: 1 tab Sevelamer Carbonate (Renvela) 800 mg PO TIDCC [place] - Labs Labs: 08/30/17 08:48 08/30/17 08:48 PT 10.5 SECONDS (9.7-12.2) 08/28/17 10:25 INR 0.9 08/28/17 10:25 APTT 31 SECONDS (21-34) 08/28/17 10:25
[2017-08-30] MEDS: Naproxen 550 mg Tab PO SCH (17:23)
[2017-08-30] MEDS ORDERED: Naproxen 550 mg Tab PO SCH (18:00)
--- NOTE | 2017-08-31 00:10 | PN ---
DATE: 08/30/2017 FOLLOWUP RENAL CONSULTATION LOCATION: The patient is located in room 365, bed A. REQUESTED BY: Pattie Locke MD REASON FOR FOLLOWUP: End-stage renal disease, on peritoneal dialysis. HISTORY OF PRESENT ILLNESS: Mr. 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 Denies any recent chest pain or palpitation. Denies any fever or cough. The patient is eager to go home. PHYSICAL EXAMINATION: VITAL SIGNS: As follows, blood pressure 150/73, pulse 74, respirations 20, temperature 98.7, saturation 98%. Height 5 feet 1 inch, weight is 144 pounds. GENERAL: Mrs. Cade is a 67 years old elderly female, moderately built, moderately nourished, not in acute distress. HEENT: Pupils normal and reactive to light and accommodation. Conjunctiva pink. Sclerae anicteric. Tongue is moist. Trachea is midline. LUNGS: Symmetric on both sides. Bilateral breath sounds present. Clear to auscultation. CVS: Lyons at the fifth intercostal space, midclavicular line. S1, S2 audible. No murmur or gallop. ABDOMEN: Normal in appearance, soft, tympanic. No guarding. No rigidity. No hepatosplenomegaly. POLYMER CHEMIST: The patient is alert, awake, and oriented x3. Nonfocal neuro examination. Cranial nerves II through XII grossly intact. Sensory and motor system is within normal limits. EXTREMITIES: No cyanosis, no clubbing, no edema. The patient has swelling of the left knee joint, slightly tender. CURRENT MEDICATIONS: Include as follows: Naproxen 550 mg p.o. b.i.d., Cozaar 50 mg p.o. b.i.d., subcu heparin 5000 every 12 hours, amlodipine 5 mg p.o. daily, Pepcid 20 mg p.o. b.i.d., Percocet 1 tablet t.i.d. p.r.n., Renvela 800 mg p.o. t.i.d., Sensipar 30 mg p.o. daily, normal saline IV fluids 60 mL/hour, Tylenol 650 mg p.o. every 4 hours p.r.n. LABORATORY DATA: Include as follows, as of 08/30/2017, WBC 11.9, hemoglobin 10.1, hematocrit is 28.5, platelets is 336. Sodium 127, potassium 3.7, chloride 86, CO2 of 25, BUN 26, creatinine 7.4, glucose 129, calcium is 10.9. Total bili 0.8, AST 29, ALT 11, alkaline phosphatase 80, total protein 6.8, albumin is 3.4, and TSH is 2.41, and serum cortisol is 25. fluid positive for crystals, identified as calcium pyrophosphate crystals. IMPRESSION: In summary, Mrs. Cade is a 67 years old elderly Turkmen female with history of hypertension, end-stage renal disease, on peritoneal dialysis with left knee swelling and effusion and slight pain. 1. End-stage renal disease. Continue peritoneal dialysis daily. The patient was in cycler at home and unable to bring the cycler machine to the hospital. We will continue manual exchanges with 2 liters of 2.5% solution every 6 hours with a 10 minutes dwell in and 5-1/2 hours dwell time, and dwell out is 20 minutes with total 36 hours. The patient has a negative about 900 mL in the last 24 hours. 2. Hypertension. Continue amlodipine 5 mg daily, and also continue losartan 50 mg p.o. b.i.d. Continue low-sodium diet. 3. Hyponatremia most likely secondary to diuretics and mild fluid overload. We will continue gentle IV hydration normal saline at 60 mL/hour and repeat BMP in a.m. 4. Left knee effusion, most likely pseudogout. Follow up with orthopedic surgery. We will follow with you. Thank you for allowing me to participate in your patient's care. Junior Deluca MD
[2017-08-31 07:22] LABS: BASO # 0.1 K/uL (0.0-0.2); BASO % 0.8 % (0.0-2.0); EOS # 0.6 K/uL (0.0-0.7); HEMOGLOBIN 9.4 g/dL (11.0-16.0); LYMPH # 0.7 K/uL (1.0-4.3); LYMPH % 6.1 % (20.0-40.0); MEAN CELL VOLUME 90.7 fL (81.0-99.0); MEAN CORPUSCULAR HEMOGLOBIN 32.4 pg (27.0-31.0); MEAN CORPUSCULAR HGB CONC 35.8 g/dL (33.0-37.0); MEAN PLATELET VOLUME 6.8 fL (7.2-11.7); MONO # 0.8 K/uL (0.0-0.8); MONO % 6.9 % (0.0-10.0); NEUT # 9.4 K/uL (1.8-7.0); NEUT % 81.2 % (50.0-75.0); PLATELET COUNT 323 K/uL (130-400); RBC 2.89 Mil/uL (3.80-5.20); RED CELL DISTRIBUTION WIDTH 13.4 % (11.5-14.5); WHITE BLOOD COUNT 11.6 K/uL (4.8-10.8)
[2017-08-31 07:50] VITALS: RESP 20
[2017-08-31 07:55] LABS: ALBUMIN 3.1 g/dL (3.5-5.0)
[2017-08-31] MEDS ORDERED: MethylPREDNISolone Depo 40 mg/ml Inj IAA ONE (08:30)
[2017-08-31] MEDS ORDERED: Bupivacaine HCl 0.5% PF (10 ml) Inj IJ ONE (08:30)
[2017-08-31 08:35] LABS: EOSINOPHIL 6 % (0-4); LYMPHOCYTE 5 % (20-40); MONOCYTE 6 % (0-10); NEUTROPHIL 83 % (50-75); PLATELET ESTIMATE NORMAL (NORMAL); TOTAL CELLS COUNTED 100
[2017-08-31 08:36] LABS: ANISOCYTOSIS SLIGHT; TOXIC GRANULATION PRESENT
[2017-08-31 08:37] LABS: HYPOCHROMIC SLIGHT; POLYCHROMIC SLIGHT
[2017-08-31] MEDS: Naproxen 550 mg Tab PO SCH ×2 (08:40→17:30)
[2017-08-31] MEDS: Potassium Chloride 20 mEq ER Tab PO SCH ×2 (08:44→12:08)
--- NOTE | 2017-08-31 11:31 | CP.PCM.PN ---
Subjective - Date & Time of Evaluation Date of Evaluation: 08/31/17 Time of Evaluation: 11:15 - Subjective Subjective: -L knee still markedly swollen, tender and warm to touch -getting nightly peritoneal dialysis -afebrile, off antibiotics since transfer to floor from ER -patient wants to go home. -joint aspiration done 2 days ago. Patient tolerated it well -synovial fluid exam noted- + calcium pyrophosphate crystals consistent with pseudogout, no culture results available -other blood tests noted -for steroid injection later today as per Ortho Objective - Vital Signs/Intake and Output Vital Signs (last 24 hours): Temp Pulse Resp BP Pulse Ox 97.9 F 100 H 20 168/92 H 97 08/31/17 11:00 08/31/17 11:00 08/31/17 11:00 08/31/17 11:00 08/31/17 11:00 Intake and Output: 08/31/17 08/31/17 06:59 18:59 Intake Total 780 400 Output Total 100 Balance 680 400 - Medications Medications: Current Medications Acetaminophen (Tylenol 325mg Tab) 650 mg PO Q4 PRN PRN Reason: Pain, moderate (4-7) Last Admin: 08/30/17 23:18 Dose: 650 mg Amlodipine Besylate (Norvasc) 5 mg PO DAILY [facility] Last Admin: 08/31/17 10:25 Dose: 5 mg Cinacalcet (Sensipar) 30 mg PO DAILY [facility] Last Admin: 08/31/17 09:09 Dose: 30 mg Famotidine (Pepcid) 20 mg PO BID [facility] Last Admin: 08/31/17 09:09 Dose: 20 mg Heparin Sodium (Porcine) (Heparin) 5,000 units SC Q12 [facility] Last Admin: 08/31/17 09:09 Dose: 5,000 units Sodium Chloride (Sodium Chloride 0.9%) 1,000 mls @ 60 mls/hr IV .[id number] [facility] Last Admin: 08/30/17 21:15 Dose: 60 mls/hr Losartan Potassium (Cozaar) 50 mg PO BID [facility] Last Admin: 08/31/17 09:09 Dose: 50 mg Naproxen (Anaprox Ds) 550 mg PO BIDPC [facility] Last Admin: 08/31/17 08:40 Dose: 550 mg Oxycodone/Acetaminophen (Percocet 5/325 Mg Tab) 1 tab PO TID PRN PRN Reason: Pain, severe (8-10) Stop: 09/01/17 10:01 Last Admin: 08/30/17 10:29 Dose: 1 tab Potassium Chloride (K-Dur 20 Meq Er Tab) 20 meq PO Q4H [facility] Stop: 08/31/17 12:46 Last Admin: 08/31/17 08:44 Dose: 20 meq Sevelamer Carbonate (Renvela) 800 mg PO TIDCC [facility] Last Admin: 08/31/17 08:40 Dose: 800 mg - Labs Labs: 08/31/17 07:14 08/31/17 07:14 PT 10.5 SECONDS (9.7-12.2) 08/28/17 10:25 INR 0.9 08/28/17 10:25 APTT 31 SECONDS (21-34) 08/28/17 10:25 - Constitutional Appears: No Acute Distress - Head Exam Head Exam: NORMOCEPHALIC - Eye Exam Eye Exam: Normal appearance - ENT Exam ENT Exam: Mucous Membranes Moist - Cardiovascular Exam Cardiovascular Exam: REGULAR RHYTHM, +S1, +S2 - GI/Abdominal Exam GI & Abdominal Exam: Soft, Normal Bowel Sounds - Rectal Exam Rectal Exam: Deferred - Extremities Exam Extremities Exam: Joint Swelling Additional comments: L knee markedly swollen and warm and tender to palpation - Neurological Exam Neurological Exam: Alert, Awake, Oriented x3 - Psychiatric Exam Psychiatric exam: Normal Affect, Normal Mood - Skin Skin Exam: Dry, Intact, Normal Color Assessment and Plan (1) Knee effusion, left Status: Acute (2) Hyponatremia Assessment & Plan: imroving on NS infusion Status: Acute (3) Hypertension Assessment & Plan: improving Status: Chronic (4) ESRD (end stage renal disease) on dialysis Assessment & Plan: on peritoneal dialysis every night Status: Chronic (5) Hypercalcemia associated with chronic dialysis Status: Resolved
[2017-08-31 14:26] VITALS: TEMP 97.9
[2017-08-31] MEDS: Sodium Chloride 0.9% 1,000 ML IV SCH (14:35)
--- NOTE | 2017-08-31 14:45 | CP.PCM.PN ---
Subjective - Date & Time of Evaluation Date of Evaluation: 08/31/17 Time of Evaluation: 14:42 - Subjective Subjective: Orthopedic follow up Dr. Luz Patient states that her left knee is feeling much better. Offered patient steroid injection and she says it is feeling better and she refuses says that she does not need it. Review of Systems - Review of Systems All systems: reviewed and no additional remarkable complaints except - Musculoskeletal Musculoskeletal: As Par HPI Objective - Vital Signs/Intake and Output Vital Signs (last 24 hours): Temp Pulse Resp BP Pulse Ox 97.9 F 100 H 20 165/82 H 97 08/31/17 11:00 08/31/17 12:24 08/31/17 11:00 08/31/17 12:24 08/31/17 12:24 Intake and Output: 08/31/17 08/31/17 06:59 18:59 Intake Total 780 1180 Output Total 100 Balance 680 1180 - Medications Medications: Current Medications Acetaminophen (Tylenol 325mg Tab) 650 mg PO Q4 PRN PRN Reason: Pain, moderate (4-7) Last Admin: 08/30/17 23:18 Dose: 650 mg Amlodipine Besylate (Norvasc) 5 mg PO DAILY [facility] Last Admin: 08/31/17 10:25 Dose: 5 mg Cinacalcet (Sensipar) 30 mg PO DAILY [facility] Last Admin: 08/31/17 09:09 Dose: 30 mg Famotidine (Pepcid) 20 mg PO BID [facility] Last Admin: 08/31/17 09:09 Dose: 20 mg Heparin Sodium (Porcine) (Heparin) 5,000 units SC Q12 [facility] Last Admin: 08/31/17 09:09 Dose: 5,000 units Sodium Chloride (Sodium Chloride 0.9%) 1,000 mls @ 60 mls/hr IV .[id number] [facility] Last Admin: 08/31/17 14:35 Dose: Not Given Losartan Potassium (Cozaar) 50 mg PO BID [facility] Last Admin: 08/31/17 09:09 Dose: 50 mg Naproxen (Anaprox Ds) 550 mg PO BIDPC [facility] Last Admin: 08/31/17 08:40 Dose: 550 mg Oxycodone/Acetaminophen (Percocet 5/325 Mg Tab) 1 tab PO TID PRN PRN Reason: Pain, severe (8-10) Stop: 09/01/17 10:01 Last Admin: 08/30/17 10:29 Dose: 1 tab Sevelamer Carbonate (Renvela) 800 mg PO TIDCC [facility] Last Admin: 08/31/17 12:08 Dose: 800 mg - Labs Labs: 08/31/17 07:14 08/31/17 07:14 PT 10.5 SECONDS (9.7-12.2) 08/28/17 10:25 INR 0.9 08/28/17 10:25 APTT 31 SECONDS (21-34) 08/28/17 10:25 - Constitutional Appears: Well, No Acute Distress - Head Exam Head Exam: ATRAUMATIC - Respiratory Exam Respiratory Exam: NORMAL BREATHING PATTERN - Cardiovascular Exam Additional comments: +DP/PT pulses - Extremities Exam Additional comments: joint effusion to left knee, minimally warm, no erythema, almost full ROM wihtout pain calve soft NT neg homans - Neurological Exam Neurological Exam: Alert, Awake Neuro motor strength exam: Left Lower Extremity: 5 (+ROM ankle/toes, sensation intact +DP/PT pulses calves soft NT neg homans) - Psychiatric Exam Psychiatric exam: Normal Affect, Normal Mood - Skin Skin Exam: Dry, Intact, Normal Color, Warm Assessment and Plan (1) Pseudogout of left knee Assessment & Plan: +CPPD cultures prelim negative no clinical suspicion of bacterial superinfection patient refuses steroid injection PT/OT for walker orthopedically stable for d/c home patient to f/u Dr. 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 Patient agrees to plan d/w Dr. Luz, agrees with above Status: Acute (2) Acute gout of left knee Status: Acute Radiology Interpretation - Radiology Interpretation #2 Interpretation: Patient Name / ID : BEAU STAPLES / [id number] Exam Date : 08/29/2017 13:00:22 ( Approved ) Study Comment : Sex / Age : F / 67Y Creator : Jose Raymond MD Dictator : Jose Raymond MD Field Education Director : Conveyor Feeder : Jose Raymond MD Approver2 : Report Date : 08/29/2017 14:11:53 My Comment : CT left knee History: Left knee pain. Joint swelling. Comparison: MRI dated 08/28/2017 Technique: Multiple contiguous axial images were performed through the left knee without the use of intravenous contrast. Subsequently, sagittal and coronal reformatted images were obtained. This CT exam was performed using one or more of the following dose reduction techniques: Automated exposure control, adjustment of the mA and/or kV according to patient size, and/or use of iterative reconstruction technique. Findings: Please see separate MRI report for evaluation of soft tissue findings. Again identified within the posterior aspect of the medial femoral condyle is a lucent osseous lesion measuring 1.8 x 1.4 x 2.1 centimeters. There is cortical irregularity and or destruction at the posterior cortex of the medial femoral condyle at the site of the osseous lesion suggestive for cortical breakthrough. There are multiple internal ossified and or partially calcified septations in a multilobulated appearance. Margins of the lesion appear thin-walled. This is of uncertain clinical etiology. This may represent a complex intraosseous synovial cyst and or complex ganglia with associated cortical breakthrough and extraosseous extension. Alternatively, this may represent a chondroid lesion such is a chondromyxoid fibroma with associated cortical breakthrough. Additional etiologies are not excluded. Clinical correlation. Large suprapatellar joint effusion. Moderate narrowing of the patellofemoral compartment with severe chondromalacia patella at the lateral compartment of the femorotibial joint space with prominent osteochondral change noted at the posterior lateral patella as well as the anterior aspect of the lateral femoral condyle. Lateral subluxation of the patella. Moderate medial compartment joint space narrowing with subchondral sclerosis. Suggestion of a small loose osteochondral body measuring 5 millimeters at the anterior aspect of the femorotibial joint space. Enthesopathic change at the anterior inferior bony patella. Multilobulated cystic foci measuring up to 4.3 centimeters at the posterior aspect of the femorotibial joint space which may represent complex synovial cyst and or ganglia. Impression: Please see separate MRI report for evaluation of soft tissue findings. 1. Again identified within the posterior aspect of the medial femoral condyle is a lucent osseous lesion measuring 1.8 x 1.4 x 2.1 centimeters. There is cortical irregularity and or destruction at the posterior cortex of the medial femoral condyle at the site of the osseous lesion suggestive for cortical breakthrough. There are multiple internal ossified and or partially calcified septations in a multilobulated appearance. Margins of the lesion appear thin- walled. This is of uncertain clinical etiology. This may represent a complex intraosseous synovial cyst and or complex ganglia with associated cortical breakthrough and extraosseous extension. Alternatively, this may represent a chondroid lesion such is a chondromyxoid fibroma with associated cortical breakthrough. Additional etiologies are not excluded. Clinical correlation. 2. Large suprapatellar joint effusion. 3. Moderate narrowing of the patellofemoral compartment with severe chondromalacia patella at the lateral compartment of the femorotibial joint space with prominent osteochondral change noted at the posterior lateral patella as well as the anterior aspect of the lateral femoral condyle. Lateral subluxation of the patella. 4. Moderate medial compartment joint space narrowing with subchondral sclerosis. 5. Suggestion of a small loose osteochondral body measuring 5 millimeters at the anterior aspect of the femorotibial joint space. 6. Enthesopathic change at the anterior inferior bony patella. 7. Multilobulated cystic foci measuring up to 4.3 centimeters at the posterior aspect of the femorotibial joint space which may represent complex synovial cyst and or ganglia. - Radiology Interpretation #3 Interpretation: atient Name / ID : BEAU STAPLES / [id number] Exam Date : 08/28/2017 12:12:04 ( Approved ) Study Comment : Sex / Age : F / 67Y Creator : Jose Raymond MD Dictator : Jose Raymond MD Field Education Director : Conveyor Feeder : Jose Raymond MD Approver2 : Report Date : 08/29/2017 10:41:45 My Comment : MRI left knee History: Left knee pain. Left knee swelling. Comparison: X-ray dated 08/28/2017 Technique: Multi-echo multiplanar sequences were performed through the left knee without the use of intravenous contrast. Findings: Motion artifact limits evaluation. Large suprapatellar joint effusion with associated synovial debris and hypertrophy. Moderate lobulated fluid intensity signal foci seen within the posterior knee within the soft tissues measuring 1.9 x 3.8 x 3.7 centimeters which may represent multilobulated synovial cyst and or ganglia. Thinning and attenuation of the visualized anterior cruciate ligament suggestive for a low grade sprain and or mild partial tearing. Posterior cruciate ligament is preserved. Transverse linear oblique signal seen within the body and posterior horn of the medial meniscus extending to the inferior articular surface suggestive for a tear. Globular increased signal seen within the posterior horn of the lateral meniscus. Low-grade sprain of the medial collateral ligament. Lateral collateral ligament complex structures are preserved. Mild distal quadriceps tendinopathy. Patellar tendon is preserved. Focal cartilage thinning and loss overlying the medial patellar facet. Focal cartilage thinning and loss involving the anterior to midportion of the medial compartment of the femorotibial joint spaces well as the anterior aspect of the lateral femoral condyle. Signal change in the adjacent marrow of the anterior aspect of the lateral femoral condyle demonstrating decreased T1 signal and increased STIR signal suggestive for osteochondral change. Additional considerations may include bone bruising versus subchondral osseous injury versus additional etiology. At the posterior aspect of the medial femoral condyle, there is a prominent lesion measuring 2.5 x 2.0 x 2.1 centimeters. The lesion is primarily cystic in appearance demonstrating increased T2 and STIR signal. There is some internal decreased T1 signal within the matrix with associated surrounding reactive edema. There is a suggestion of cortical discontinuity along the posterior cortex of the lesion. This may indicate some cortical disruption. Correlation with bony CT would be helpful to better evaluate the osseous matrix at this level. This is of uncertain clinical etiology and may represent a chondroid lesion such as a chondromyxoid fibroma versus additional etiology. Additional considerations may include a cystic bone lesion versus complex cystic bone lesion with associated cortical disruption posteriorly versus additional etiologies. Clinical correlation. Impression: Motion artifact limits evaluation. 1. Large suprapatellar joint effusion with associated synovial debris and hypertrophy. 2. At the posterior aspect of the medial femoral condyle, there is a prominent lesion measuring 2.5 x 2.0 x 2.1 centimeters. The lesion is primarily cystic in appearance demonstrating increased T2 and STIR signal. There is some internal decreased T1 signal within the matrix with associated surrounding reactive edema. There is a suggestion of cortical discontinuity along the posterior cortex of the lesion. This may indicate some cortical disruption. Correlation with bony CT would be helpful to better evaluate the osseous matrix at this level. This is of uncertain clinical etiology and may represent a chondroid lesion such as a chondromyxoid fibroma versus additional etiology. Additional considerations may include a cystic bone lesion versus complex cystic bone lesion with associated cortical disruption posteriorly versus additional etiologies. Clinical correlation. 3. Moderate lobulated fluid intensity signal foci seen within the posterior knee within the soft tissues measuring 1.9 x 3.8 x 3.7 centimeters which may represent multilobulated synovial cyst and or ganglia. 4. Thinning and attenuation of the visualized anterior cruciate ligament suggestive for a low grade sprain and or mild partial tearing. 5. Transverse linear oblique signal seen within the body and posterior horn of the medial meniscus extending to the inferior articular surface suggestive for a tear. 6. Globular increased signal seen within the posterior horn of the lateral meniscus. 7. Low-grade sprain of the medial collateral ligament. 8. Mild distal quadriceps tendinopathy. 9. Focal cartilage thinning and loss overlying the medial patellar facet. 10. Focal cartilage thinning and loss involving the anterior to midportion of the medial compartment of the femorotibial joint spaces well as the anterior aspect of the lateral femoral condyle. Signal change in the adjacent marrow of the anterior aspect of the lateral femoral condyle demonstrating decreased T1 signal and increased STIR signal suggestive for osteochondral change. Additional considerations may include bone bruising versus subchondral osseous injury versus additional etiology. These findings were preliminarily reported at 6:02 p.m. on 08/28/[address] Ananda Gonzalez from [facility].
[2017-08-31 15:57] VITALS: BP 145/78; PULSE 99; O2SAT 99
--- NOTE | 2017-08-31 17:26 | CP.PCM.DIS ---
Provider - Provider Date of Admission: 08/29/17 09:15 Attending physician: Pattie Hudson MD Consults: Bhavya Hernadez; Dr. Maureen Deluca Diagnosis - Discharge Diagnosis (1) Knee effusion, left Status: Acute (2) Hyponatremia Status: Acute (3) Hypertension Status: Chronic (4) ESRD (end stage renal disease) on dialysis Status: Chronic (5) Hypercalcemia associated with chronic dialysis Status: Resolved Hospital Course - Lab Results Lab Results: Micro Results 08/28/17 17:14 Blood-Venous Blood Culture - Preliminary NO GROWTH AFTER 3 DAYS 08/29/17 10:55 Knee - Left Gram Stain - Preliminary 08/29/17 10:55 Knee - Left Wound Culture - Preliminary No growth. 08/28/17 13:00 Blood-Venous Blood Culture - Preliminary NO GROWTH AFTER 48 HOURS Most Recent Lab Values WBC 11.6 K/uL (4.8-10.8) H 08/31/17 07:14 RBC 2.89 Mil/uL (3.80-5.20) L 08/31/17 07:14 Hgb 9.4 g/dL (11.0-16.0) L 08/31/17 07:14 Hct 26.2 % (34.0-47.0) L 08/31/17 07:14 MCV 90.7 fL (81.0-99.0) 08/31/17 07:14 MCH 32.4 pg (27.0-31.0) H 08/31/17 07:14 MCHC 35.8 g/dL (33.0-37.0) 08/31/17 07:14 RDW 13.4 % (11.5-14.5) 08/31/17 07:14 Plt Count 323 K/uL (130-400) 08/31/17 07:14 MPV 6.8 fL (7.2-11.7) L 08/31/17 07:14 Neut % (Auto) 81.2 % (50.0-75.0) H 08/31/17 07:14 Lymph % (Auto) 6.1 % (20.0-40.0) L 08/31/17 07:14 [place] % (Auto) 6.9 % (0.0-10.0) 08/31/17 07:14 Eos % (Auto) 5.0 % (0.0-4.0) H 08/31/17 07:14 Baso % (Auto) 0.8 % (0.0-2.0) 08/31/17 07:14 Neut # (Auto) 9.4 K/uL (1.8-7.0) H 08/31/17 07:14 Lymph # (Auto) 0.7 K/uL (1.0-4.3) L 08/31/17 07:14 [place] # (Auto) 0.8 K/uL (0.0-0.8) 08/31/17 07:14 Eos # (Auto) 0.6 K/uL (0.0-0.7) 08/31/17 07:14 Baso # (Auto) 0.1 K/uL (0.0-0.2) 08/31/17 07:14 Neutrophils % (Manual) 83 % (50-75) H 08/31/17 07:14 Band Neutrophils % 1 % (0-2) 08/28/17 10:25 Lymphocytes % (Manual) 5 % (20-40) L 08/31/17 07:14 Monocytes % (Manual) 6 % (0-10) 08/31/17 07:14 Eosinophils % (Manual) 6 % (0-4) H 08/31/17 07:14 Toxic Granulation Present 08/31/17 07:14 Platelet Estimate Normal (NORMAL) 08/31/17 07:14 Polychromasia Slight 08/31/17 07:14 Hypochromasia (manual) Slight 08/31/17 07:14 Basophilic Stippling Slight 08/31/17 07:14 Anisocytosis (manual) Slight 08/31/17 07:14 ESR 110 mm/hr (0-20) H 08/29/17 11:31 PT 10.5 SECONDS (9.7-12.2) 08/28/17 10:25 INR 0.9 08/28/17 10:25 APTT 31 SECONDS (21-34) 08/28/17 10:25 Sodium 129 mmol/L (132-148) L 08/31/17 07:14 Potassium 3.0 mmol/L (3.6-5.2) L 08/31/17 07:14 Chloride 90 mmol/L (98-107) L 08/31/17 07:14 Carbon Dioxide 23 mmol/L (22-30) 08/31/17 07:14 Anion Gap 18 (10-20) 08/31/17 07:14 BUN 32 mg/dL (7-17) H 08/31/17 07:14 Creatinine 6.9 mg/dL (0.7-1.2) H 08/31/17 07:14 Est GFR ( Amer) 7 08/31/17 07:14 Est GFR (Non-Af Amer) 6 08/31/17 07:14 Random Glucose 117 mg/dL (65-105) H 08/31/17 07:14 Calcium 10.0 mg/dl (8.6-10.4) 08/31/17 07:14 Phosphorus 6.0 mg/dL (2.5-4.5) H 08/29/17 07:27 Total Bilirubin 0.6 mg/dL (0.2-1.3) 08/31/17 07:14 AST 34 U/L (14-36) 08/31/17 07:14 ALT 12 U/L (9-52) 08/31/17 07:14 Alkaline Phosphatase 151 U/L (38-126) H D 08/31/17 07:14 C-Reactive Protein 25.30 mg/L (0.0-9.9) H 08/29/17 11:27 Total Protein 6.4 g/dL (6.3-8.3) 08/31/17 07:14 Albumin 3.1 g/dL (3.5-5.0) L 08/31/17 07:14 Globulin 3.3 gm/dL (2.2-3.9) 08/31/17 07:14 Albumin/Globulin Ratio 1.0 (1.0-2.1) 08/31/17 07:14 TSH 3rd Generation 2.41 mIU/L (0.46-4.68) 08/29/17 11:31 PTH Intact Whole Molec 20 pg/mL (14-64) 08/29/17 07:27 Cortisol AM Sample 25.0 ug/dL (4.46-22.7) H 08/30/17 08:48 Fluid Type Synovial fluid 08/29/17 11:46 Fluid Crystals Positive (NEGATIVE) H 08/29/17 11:47 Synovial WBC 428.0 /mm3 (0.0-150.0) H 08/29/17 11:46 Synovial RBC 9.0 /mm3 (0.0-0.0) H 08/29/17 11:46 Synovial Neutrophils 97.0 % (0-0) H 08/29/17 11:46 Synovial Lymphocytes 3.0 % (0-0) H 08/29/17 11:46 Synov Monos/Macrophage 0 % (0-0) 08/29/17 11:46 Synovial Crystal Type Calciumpyrophosphate 08/29/17 11:47 Synovial Fluid Comment TEST NOT PERFORMED 08/29/17 11:46 Discharge Exam - Head Exam Head Exam: NORMOCEPHALIC Discharge Plan - Follow Up Plan Condition: FAIR Disposition: HOME/ ROUTINE Referrals: Kali Luz MD [Staff Provider] -
--- NOTE | 2017-08-31 18:57 | CP.PCM.PN ---
Subjective - Date & Time of Evaluation Date of Evaluation: 08/31/17 Time of Evaluation: 18:57 - Subjective Subjective: pt is seen and examined, follow up consult is dictated #[id number] c/w pd Objective - Vital Signs/Intake and Output Vital Signs (last 24 hours): Temp Pulse Resp BP Pulse Ox 97.9 F 99 H 20 145/78 99 08/31/17 15:00 08/31/17 15:00 08/31/17 15:00 08/31/17 15:00 08/31/17 15:00 Intake and Output: 08/31/17 08/31/17 06:59 18:59 Intake Total 780 1180 Output Total 100 Balance 680 1180 - Medications Medications: Current Medications Acetaminophen (Tylenol 325mg Tab) 650 mg PO Q4 PRN PRN Reason: Pain, moderate (4-7) Last Admin: 08/30/17 23:18 Dose: 650 mg Amlodipine Besylate (Norvasc) 5 mg PO DAILY [facility] Last Admin: 08/31/17 10:25 Dose: 5 mg Cinacalcet (Sensipar) 30 mg PO DAILY [facility] Last Admin: 08/31/17 09:09 Dose: 30 mg Famotidine (Pepcid) 20 mg PO BID [facility] Last Admin: 08/31/17 17:19 Dose: 20 mg Heparin Sodium (Porcine) (Heparin) 5,000 units SC Q12 [facility] Last Admin: 08/31/17 09:09 Dose: 5,000 units Sodium Chloride (Sodium Chloride 0.9%) 1,000 mls @ 60 mls/hr IV [id number] [facility] Last Admin: 08/31/17 14:35 Dose: Not Given Losartan Potassium (Cozaar) 50 mg PO BID [facility] Last Admin: 08/31/17 17:19 Dose: 50 mg Naproxen (Anaprox Ds) 550 mg PO BIDPC [facility] Last Admin: 08/31/17 17:30 Dose: 550 mg Oxycodone/Acetaminophen (Percocet 5/325 Mg Tab) 1 tab PO TID PRN PRN Reason: Pain, severe (8-10) Stop: 09/01/17 10:01 Last Admin: 08/30/17 10:29 Dose: 1 tab Sevelamer Carbonate (Renvela) 800 mg PO TIDCC [facility] Last Admin: 08/31/17 17:19 Dose: 800 mg - Labs Labs: 08/31/17 07:14 08/31/17 07:14 PT 10.5 SECONDS (9.7-12.2) 08/28/17 10:25 INR 0.9 08/28/17 10:25 APTT 31 SECONDS (21-34) 08/28/17 10:25
--- NOTE | 2017-08-31 23:50 | PN ---
DATE: 08/31/2017 FOLLOWUP RENAL CONSULTATION LOCATION: The patient is located in room 365, bed A. REQUESTED BY: Pattie Locke MD REASON FOR FOLLOWUP: End-stage renal disease, on peritoneal dialysis. HISTORY OF PRESENT ILLNESS: Mrs. Cade is a 67 years old elderly [place] female, very pleasant with a past medical history significant for longstanding hypertension, end-stage renal disease, on peritoneal dialysis for the last 5 years who was admitted with chief complaints of left knee joint pain and swelling and found to have a large suprapatellar effusion, status post aspiration and fluid consistent with positive for crystals for calcium pyrophosphate which in turn consistent with pseudogout. The patient is not in acute distress. Denies any headache, dizziness. Denies any chest pain or palpitation. Denies any fever or cough. No abdominal pain. No nausea, vomiting, diarrhea. PHYSICAL EXAMINATION: VITAL SIGNS: As follows, blood pressure 145/78, pulse 99, respirations 20, temperature 97.9, saturation 99%. Height 5 feet 1 inch, weight is 144 pounds. GENERAL: Mrs. Cade is 67 years old elderly [place] female, moderately built, moderately nourished, not in acute distress. HEENT: Pupils normal and reactive to light and accommodation. Conjunctivae pink. Sclerae anicteric. Tongue is moist. Trachea is midline. LUNGS: Symmetric on both sides. Bilateral breath sounds present. Clear to auscultation. CVS: [place] at the fifth intercostal space, midclavicular line. S1, S2 audible. No murmur or gallop. ABDOMEN: Normal in appearance, soft, tympanic. No guarding. No rigidity. No hepatosplenomegaly. MANAGER REVIEW: The patient is alert, awake, oriented x3. Nonfocal neuro examination. Cranial nerves II through XII grossly intact. Sensory and motor system is within normal limits. EXTREMITIES: No cyanosis, no clubbing, no edema. The patient has a slight swelling of the left knee joint. MEDICATIONS: Current medications include as follows: Losartan 50 mg p.o. b.i.d, amlodipine 5 mg daily, Pepcid 20 mg p.o. b.i.d., Sensipar 30 mg p.o. daily, Renvela 800 mg p.o. t.i.d. LABORATORY DATA: Include as follows, as of 08/31/2017, WBC 11.6, hemoglobin 9.4, hematocrit is 26.2, platelets 323. Sodium 129, potassium 3, chloride 90, CO2 of 23. BUN 32, creatinine 6.9, glucose 117, calcium is 10.0, total bili 0.6, AST 0.6, AST 34, ALT 12, alkaline phosphatase 151, total protein 6.4, albumin is 3.1. IMPRESSION: In summary, Mrs. Cade is a 67 years old elderly female with a history of hypertension, end-stage renal disease, on peritoneal dialysis cycler at home who was admitted with left knee swelling and pain and status post aspiration of the joint and fluid positive for calcium pyrophosphate crystals. 1. End-stage renal disease. Continue peritoneal dialysis. Continue manual exchanges every 6 hours once the patient is in the hospital with 2.5% solution 2 liters every 6 hours 2. Hypertension. Blood pressure is stable. Continue her medications, amlodipine and losartan. Try to avoid hydrochlorothiazide due to hyponatremia. 3. Hypokalemia. Agree with potassium supplement 40 mEq p.o. times one this morning. 4. Left knee effusion, most likely pseudogout. Follow up with orthopedic surgery as an outpatient for possible discharge today. The patient is waiting to be picked up by the family. The patient can be followed with his pyrometer temperature regulator in [facility]. Thank you for allowing me to participate in your patient's care. Junior Deluca MD
== END 2017-08-31 20:01 | disposition home or self-care (01) | DRG 564 ==
LOC: C.ER 09:37 → C.9E 11:28 → C.3T 14:52 → OBSVTOIN 08-29 09:15
PROVIDERS: ADMIT Internal Medicine Cardiovascular Disease; ATTEND Internal Medicine Cardiovascular Disease
PROC: 0S9D3ZX Drainage of Left Knee Joint, Percutaneous Approach, Diagnostic (ICD-10-PCS; principal; 2017-08-29)
PROC: 3E1M39Z Irrigation of Peritoneal Cavity using Dialysate, Percutaneous Approach (ICD-10-PCS; 2017-08-29)
DX: M25.462 Effusion, left knee (principal); N18.6 End stage renal disease; E87.1 Hypo-osmolality and hyponatremia; I12.0 Hypertensive chronic kidney disease with stage 5 chronic kidney disease or end stage renal disease; M71.20 Synovial cyst of popliteal space [Baker], unspecified knee; T50.2X5A Adverse effect of carbonic-anhydrase inhibitors, benzothiadiazides and other diuretics, initial encounter; Z99.2 Dependence on renal dialysis; D63.1 Anemia in chronic kidney disease; E83.52 Hypercalcemia; E87.6 Hypokalemia; M22.42 Chondromalacia patellae, left knee

== ENCOUNTER 2017-11-15 11:06 | Emergency (ER) | payer MEDICARE ==
[2017-11-15 11:21] VITALS: TEMP 97.8
--- NOTE | 2017-11-15 11:58 | C.PDOC ---
History Of Present Illness 67 year old female with a history of ERSD (on peritoneal dialysis) presents to the emergency department with complaints of vomiting and headache. Patient reports that she was waiting a bus stop this morning when she felt nauseous, and proceeded to vomit a few times, bringing up food and liquid. Patient reports that after the vomiting she had a mild headache and felt nauseous. She denies chest pain, shortness of breath dizziness, visual changes, and fever. In the ED, patient reports that her headache has subsided but she is still experiencing mild nausea, but has no other complaints at this time. Time Seen by Provider: 11/15/17 11:42 Chief Complaint (Nursing): Dizziness/Lightheaded History Per: Patient History/Exam Limitations: no limitations Onset/Duration Of Symptoms: Hrs Current Symptoms Are (Timing): Still Present Activity At Onset Of Symptoms: Other (waiting at bus stop) Past Medical History Reviewed: Historical Data, Nursing Documentation, Vital Signs Vital Signs: Last Vital Signs Temp 97.8 F 11/15/17 11:20 Pulse 80 11/15/17 11:20 Resp 18 11/15/17 11:20 BP 143/86 11/15/17 11:20 Pulse Ox 97 11/15/17 12:11 - Medical History PMH: Arthritis, HTN, End Stage Renal Disease, Chronic Kidney Disease Denies: CHF Surgical History: No Surg Hx - [facility] Procedures DRAINAGE OF LEFT KNEE JOINT, PERCUTANEOUS APPROACH, DIAGN (08/29/17) IRRIGATION OF PERITON CAV USING DIALYSATE, PERC APPROACH (08/29/17) Family History: States: No Known Family Hx - Social History Hx Alcohol Use: No Hx Substance Use: No - Immunization History Hx Tetanus Toxoid Vaccination: No Hx Influenza Vaccination: Yes Hx Pneumococcal Vaccination: No Review Of Systems Except As Marked, All Systems Reviewed And Found Negative. Gastrointestinal: Positive for: Nausea Physical Exam - Physical Exam Appears: Non-toxic, No Acute Distress Skin: Warm, Dry Head: Atraumatic, Normacephalic Eye(s): bilateral: Normal Inspection Nose: Normal Oral Mucosa: Moist Neck: Normal, Supple Chest: Symmetrical Cardiovascular: Rhythm Regular Respiratory: Normal Breath Sounds, No Rales, No Rhonchi, No Wheezing Gastrointestinal/Abdominal: Normal Exam, Soft, No Tenderness, No Guarding, No Rebound Extremity: Normal ROM Neurological/Psych: Oriented x3, Normal Speech, Normal Cognition ED Course And Treatment - Laboratory Results Result Diagrams: 11/15/17 11:57 11/15/17 11:57 O2 Sat by Pulse Oximetry: 97 (RA) Pulse Ox Interpretation: Normal Medical Decision Making Medical Decision Making: Impression: Gastritis, mild headache Plan: EKG CMP Lipase Renal Diet CBC CXR Pepcid 20mg IVP Reglan 10mg IVP Disposition - Disposition Disposition: HOME/ ROUTINE Disposition Time: 13:13 Condition: GOOD Prescriptions: Famotidine [Pepcid] 40 mg PO DAILY #15 tablet Instructions: Nausea and Vomiting, Adult Forms: [facility] (Greenlandic) - Clinical Impression Clinical Impression: Gastritis - Scribe Statement The provider has reviewed the documentation as recorded by the Scribe (Reji Marin) Provider Attestation: All medical record entries made by the Scribe were at my direction and personally dictated by me. I have reviewed the chart and agree that the record accurately reflects my personal performance of the history, physical exam, medical decision making, and the department course for this patient. I have also personally directed, reviewed, and agree with the discharge instructions and disposition.
[2017-11-15 12:03] LABS: BASO # 0.1 K/uL (0.0-0.2); BASO % 0.7 % (0.0-2.0); EOS # 0.3 K/uL (0.0-0.7); EOS % 2.8 % (0.0-4.0); HEMOGLOBIN 11.2 g/dL (11.0-16.0); LYMPH # 0.8 K/uL (1.0-4.3); LYMPH % 8.7 % (20.0-40.0); MEAN CELL VOLUME 90.1 fL (81.0-99.0); MEAN CORPUSCULAR HEMOGLOBIN 31.3 pg (27.0-31.0); MEAN CORPUSCULAR HGB CONC 34.7 g/dL (33.0-37.0); MEAN PLATELET VOLUME 7.3 fL (7.2-11.7); MONO # 0.6 K/uL (0.0-0.8); MONO % 6.2 % (0.0-10.0); NEUT # 7.5 K/uL (1.8-7.0); NEUT % 81.6 % (50.0-75.0); PLATELET COUNT 315 K/uL (130-400); RBC 3.57 Mil/uL (3.80-5.20); RED CELL DISTRIBUTION WIDTH 14.3 % (11.5-14.5); WHITE BLOOD COUNT 9.2 K/uL (4.8-10.8)
[2017-11-15 12:18] LABS: ALBUMIN 3.2 g/dL (3.5-5.0); CALCIUM 10.2 mg/dl (8.6-10.4)
[2017-11-15 12:32] LABS: EOSINOPHIL 2 % (0-4); LYMPHOCYTE 8 % (20-40); MONOCYTE 5 % (0-10); NEUTROPHIL 85 % (50-75); TOTAL CELLS COUNTED 100
[2017-11-15 12:33] LABS: ANISOCYTOSIS SLIGHT; MICROCYTOSIS SLIGHT; OVALOCYTES SLIGHT; PLATELET ESTIMATE NORMAL (NORMAL); POLYCHROMIC SLIGHT
--- NOTE | 2017-11-15 13:07 | RAD ---
HISTORY: vomiting r/o free air COMPARISON: 12/25/2015. FINDINGS: LUNGS: The lungs are well inflated and clear. PLEURA: No significant pleural effusion identified, no pneumothorax apparent. CARDIOVASCULAR: Normal. OSSEOUS STRUCTURES: No significant abnormalities. VISUALIZED UPPER ABDOMEN: Normal. OTHER FINDINGS: None. IMPRESSION: No active pulmonary disease.
[2017-11-15 13:20] VITALS: BP 146/79; PULSE 60; RESP 16; O2SAT 100
--- NOTE | 2017-11-17 12:29 | CARD ---
APPROVED REPORT EKG Measurement Heart [id number] <Conclusion> Normal sinus rhythm Normal ECG
== END 2017-11-15 13:35 | disposition home or self-care (01) ==
LOC: C.ER 11:06
DX: K29.70 Gastritis, unspecified, without bleeding (principal); I12.0 Hypertensive chronic kidney disease with stage 5 chronic kidney disease or end stage renal disease; N18.6 End stage renal disease; Z99.2 Dependence on renal dialysis
CPT/HCPCS: 71045; 80053; 83690; 85025; 93005; 96374; 96375; 99285; J2765

== ENCOUNTER 2017-12-30 23:11 | Inpatient (IN) | payer MEDICARE ==
--- NOTE | 2017-12-31 00:26 | C.PDOC ---
History Of Present Illness 67 year old female presents to the ER with a complaint of fever, SOB, and productive cough with yellow sputum. Patient has a Hx of peritoneal dialysis and his dialyzed at home every night, 3 days ago she began with cough, congestion, and laryngitis. Patient was seen at [facility], she was kept overnight and discharged, however, she was not given any medications and she reports the symptoms persists which prompted visit. Denies chest pain, nausea, or vomiting. Time Seen by Provider: 12/31/17 00:06 Chief Complaint (Nursing): Cough, Cold, Congestion History Per: Patient History/Exam Limitations: no limitations Onset/Duration Of Symptoms: Days Current Symptoms Are (Timing): Still Present Location Of Pain: None Associated Symptoms: Fever, Cough, Sputum, Other (SOB). denies: Nausea, Vomiting Ear Symptoms: Bilateral: None Recent travel outside of the [place]: No Past Medical History Reviewed: Historical Data, Nursing Documentation, Vital Signs Vital Signs: Last Vital Signs Temp 98 F 12/30/17 23:14 Pulse 112 H 12/30/17 23:14 Resp 20 12/30/17 23:14 BP 149/65 12/30/17 23:14 Pulse Ox 98 12/31/17 00:30 - Medical History PMH: Arthritis, HTN, End Stage Renal Disease, Chronic Kidney Disease Denies: CHF - [facility] Procedures DRAINAGE OF LEFT KNEE JOINT, PERCUTANEOUS APPROACH, DIAGN (08/29/17) IRRIGATION OF PERITON CAV USING DIALYSATE, PERC APPROACH (08/29/17) Family History: States: Unknown Family Hx - Social History Hx Alcohol Use: No Hx Substance Use: No - Immunization History Hx Tetanus Toxoid Vaccination: No Hx Influenza Vaccination: Yes Hx Pneumococcal Vaccination: No Review Of Systems Constitutional: Positive for: Fever Cardiovascular: Negative for: Chest Pain, Palpitations Respiratory: Positive for: Cough, Shortness of Breath, Sputum Gastrointestinal: Negative for: Nausea, Vomiting Physical Exam - Physical Exam Appears: Other (Hoarse muffled voice) Skin: Normal Color, Warm, Dry Head: Atraumatic, Normacephalic Eye(s): bilateral: Normal Inspection Ear(s): Bilateral: Normal Nose: Normal Oral Mucosa: Moist Throat: Normal, No Erythema, No Exudate Neck: Normal, Supple Chest: Symmetrical, No Tenderness Cardiovascular: Rhythm Regular (Tachycardic) Respiratory: No Rales, Rhonchi (Bilateral), No Wheezing Gastrointestinal/Abdominal: Soft, No Tenderness Neurological/Psych: Oriented x3, Normal Speech ED Course And Treatment - Laboratory Results Result Diagrams: 12/31/17 00:26 12/31/17 00:26 Lab Interpretation: Abnormal (WBC 17 with left shift, Na 124, K+2.7, BUN 35, Cr 7.3) O2 Sat by Pulse Oximetry: 98 (room air) Pulse Ox Interpretation: Normal - Radiology CXR: Interpreted by Me CXR Interpretation: Yes: Infiltrates (RLL) Progress Note: Blood work and CXR ordered. - Physician Consult Information Time Consulting Physician Contacted: 01:00 Physician Contacted: Pattie Hudson Outcome Of Conversation: Patient to be admitted for IV antibiotics. Disposition - Disposition Disposition: HOSPITALIZED Disposition Time: 01:00 Condition: STABLE - POA Present On Arrival: None - Clinical Impression Clinical Impression: ESRD (end stage renal disease) on dialysis, Pneumonia - Scribe Statement The provider has reviewed the documentation as recorded by the Scribcarrie Tirado All medical record entries made by the Jasibcarrie were at my direction and personally dictated by me. I have reviewed the chart and agree that the record accurately reflects my personal performance of the history, physical exam, medical decision making, and the department course for this patient. I have also personally directed, reviewed, and agree with the discharge instructions and disposition.
[2017-12-31 00:29] LABS: BASO % 0.3 % (0.0-2.0); EOS % 0.2 % (0.0-4.0); HEMOGLOBIN 11.1 g/dL (11.0-16.0); LYMPH # 0.7 K/uL (1.0-4.3); LYMPH % 4.2 % (20.0-40.0); MEAN CELL VOLUME 87.5 fL (81.0-99.0); MEAN CORPUSCULAR HEMOGLOBIN 29.9 pg (27.0-31.0); MEAN CORPUSCULAR HGB CONC 34.2 g/dL (33.0-37.0); MONO # 1.4 K/uL (0.0-0.8); MONO % 8.1 % (0.0-10.0); NEUT # 14.8 K/uL (1.8-7.0); NEUT % 87.2 % (50.0-75.0); PLATELET COUNT 301 K/uL (130-400); RBC 3.71 Mil/uL (3.80-5.20); RED CELL DISTRIBUTION WIDTH 14.1 % (11.5-14.5)
[2017-12-31 00:56] LABS: CALCIUM 8.8 mg/dl (8.6-10.4)
[2017-12-31] MEDS ORDERED: Azithromycin 500 MG in Sodium Chloride 0.9% 250 ML IVPB STA (01:06)
[2017-12-31] MEDS ORDERED: cefTRIAXone IV 1 gm in Dextros 50 ML IVPB ONE ×2 (01:06→01:20)
[2017-12-31 01:11] LABS: ANISOCYTOSIS SLIGHT; BANDS 4 % (0-2); LYMPHOCYTE 6 % (20-40); MONOCYTE 10 % (0-10); NEUTROPHIL 80 % (50-75); PLATELET ESTIMATE NORMAL (NORMAL); TOTAL CELLS COUNTED 100
[2017-12-31] MEDS ORDERED: guaiFENesin DM 100 mg-10 mg/5 ml UD ONE (02:35)
[2017-12-31] MEDS: guaiFENesin DM 100 mg-10 mg/5 ml UD PO PRN ×3 (02:40→17:50)
[2017-12-31] MEDS ORDERED: Potassium Chloride 20 mEq/15 ml LIQ UD ONE (02:52)
[2017-12-31] MEDS ORDERED: Potassium Chloride 20 mEq/15 ml LIQ UD PO ONE (02:54)
--- NOTE | 2017-12-31 08:04 | RAD ---
Date of service: 12/31/2017 PROCEDURE: CHEST RADIOGRAPH, 1 VIEW HISTORY: Pneumonia COMPARISON: 11/15/2017 FINDINGS: LUNGS: Interval airspace opacity -lateral left lung base. PLEURA: No pneumothorax or pleural fluid seen. CARDIOVASCULAR: Minimal cardiomegaly. No jose pulmonary venous congestion OSSEOUS STRUCTURES: Thoracic spondylosis. Bilateral shoulder arthrosis VISUALIZED UPPER ABDOMEN: Normal. OTHER FINDINGS: None. IMPRESSION: Interval infiltrate lateral left lung base. Follow-up to resolution recommended
[2017-12-31] MEDS: Azithromycin 500 MG in Sodium Chloride 0.9% 250 ML IVPB SCH (09:44)
--- NOTE | 2017-12-31 11:51 | CP.PCM.CON ---
History of Present Illness - History of Present Illness History of Present Illness: pt is seen and examined, full consult is dictated #[id number] 1. esrd 2hyponatremia 3. hypokalemia 4. left lung pneumonia 5. hypertension c/w pd daily, will use 2.5% 2 lit, dianeal solution kcl 20 meq po x1 check cbc, bmp, mg, po4, pth intact in am, c/w iv abx as per dr. murray Past Patient History - Infectious Disease Hx of Infectious Diseases: None ( ) - Past Medical History & Family History Past Medical History?: Yes - Past Social History Smoking Status: Never Smoked - CARDIAC Hx Cardiac Disorders: Yes Hx Congestive Heart Failure: No Hx Hypertension: Yes - PULMONARY Hx Respiratory Disorders: No - NEUROLOGICAL Hx Neurological Disorder: No - HEENT Hx HEENT Problems: No - RENAL Hx Chronic Kidney Disease: Yes Hx Dialysis: Yes Type of Dialysis Access: Peritoneal Dialysis - ENDOCRINE/METABOLIC Hx Endocrine Disorders: No - HEMATOLOGICAL/ONCOLOGICAL Hx Blood Disorders: No - INTEGUMENTARY Hx Dermatological Problems: No - MUSCULOSKELETAL/RHEUMATOLOGICAL Hx Musculoskeletal Disorders: Yes Hx Arthritis: Yes Hx Falls: No - GASTROINTESTINAL Hx Gastrointestinal Disorders: No - GENITOURINARY/GYNECOLOGICAL Hx Genitourinary Disorders: No - PSYCHIATRIC Hx Psychophysiologic Disorder: No Hx Substance Use: No - SURGICAL HISTORY Hx Surgeries: Yes Hx Herniorrhaphy: Yes (UMBILICAL) Other/Comment: peritoneal dialysis placement. protruding umbilical hernia repair. - ANESTHESIA Hx Anesthesia: Yes Hx Anesthesia Reactions: No Hx Malignant Hyperthermia: No Meds Allergies/Adverse Reactions: Allergies Allergy/AdvReac Type Severity Reaction Status Date / Time No Known Allergies Allergy Verified 12/30/17 23:19 - Medications Medications: Current Medications Amlodipine Besylate (Norvasc) 5 mg PO DAILY [facility] Last Admin: 12/31/17 09:44 Dose: 5 mg Cinacalcet (Sensipar) 30 mg PO DAILY [facility] Last Admin: 12/31/17 09:44 Dose: 30 mg Famotidine (Pepcid) 40 mg PO DAILY [facility] Last Admin: 12/31/17 09:44 Dose: 40 mg Guaifenesin/Dextromethorphan (Robitussin Dm) 5 ml PO Q4H PRN PRN Reason: Cough Last Admin: 12/31/17 09:53 Dose: 5 ml Azithromycin 500 mg/ Sodium (Chloride) 250 mls @ 250 mls/hr IVPB DAILY [facility] PRN Reason: Protocol Last Admin: 12/31/17 09:44 Dose: 250 mls/hr Losartan Potassium (Cozaar) 50 mg PO BID [facility] Last Admin: 12/31/17 09:43 Dose: 50 mg Results - Vital Signs Recent Vital Signs: Last Vital Signs Temp 98.2 F 12/31/17 11:00 Pulse 85 12/31/17 09:29 Resp 20 12/31/17 09:29 BP 138/86 12/31/17 09:29 Pulse Ox 98 12/31/17 11:00 - Labs Result Diagrams: 12/31/17 11:38 12/31/17 11:38 Labs: Laboratory Results - last 24 hr 12/31/17 12/31/17 00:26 00:26 WBC 17.0 H D RBC 3.71 L Hgb 11.1 Hct 32.5 L MCV 87.5 D MCH 29.9 MCHC 34.2 RDW 14.1 Plt Count 301 MPV 8.0 Neut % (Auto) 87.2 H Lymph % (Auto) 4.2 L [place] % (Auto) 8.1 Eos % (Auto) 0.2 Baso % (Auto) 0.3 Neut # (Auto) 14.8 H Lymph # (Auto) 0.7 L [place] # (Auto) 1.4 H Eos # (Auto) 0.0 Baso # (Auto) 0.0 Neutrophils % (Manual) 80 H Band Neutrophils % 4 H Lymphocytes % (Manual) 6 L Monocytes % (Manual) 10 Platelet Estimate Normal Anisocytosis (manual) Slight Sodium 124 L Potassium 2.7 L Chloride 85 L Carbon Dioxide 27 Anion Gap 14 BUN 35 H Creatinine 7.3 H Est GFR ( Amer) 7 Est GFR (Non-Af Amer) 6 Random Glucose 94 Calcium 8.8 Total Bilirubin 0.7 AST 14 D ALT 16 Alkaline Phosphatase 122 Total Protein 5.8 L Albumin 3.0 L Globulin 2.9 Albumin/Globulin Ratio 1.0
[2017-12-31 11:59] LABS: BASO # 0.1 K/uL (0.0-0.2); BASO % 0.5 % (0.0-2.0); EOS # 0.1 K/uL (0.0-0.7); EOS % 0.5 % (0.0-4.0); HEMOGLOBIN 10.7 g/dL (11.0-16.0); LYMPH # 0.8 K/uL (1.0-4.3); LYMPH % 4.9 % (20.0-40.0); MEAN CELL VOLUME 88.8 fL (81.0-99.0); MEAN CORPUSCULAR HEMOGLOBIN 30.2 pg (27.0-31.0); MEAN CORPUSCULAR HGB CONC 34.1 g/dL (33.0-37.0); MEAN PLATELET VOLUME 7.8 fL (7.2-11.7); MONO # 1.1 K/uL (0.0-0.8); NEUT # 14.1 K/uL (1.8-7.0); NEUT % 87.1 % (50.0-75.0); PLATELET COUNT 293 K/uL (130-400); RBC 3.55 Mil/uL (3.80-5.20); WHITE BLOOD COUNT 16.2 K/uL (4.8-10.8)
[2017-12-31] MEDS: Sodium Chloride 0.9% 1,000 ML IV SCH (12:00)
[2017-12-31] MEDS ORDERED: Potassium Chloride 10 mEq ER Tab PO SCH (12:15)
[2017-12-31 12:30] LABS: ALB/GLOB RATIO 0.9 (1.0-2.1); ALBUMIN 2.6 g/dL (3.5-5.0); CALCIUM 8.6 mg/dl (8.6-10.4)
[2017-12-31 12:45] LABS: BANDS 12 % (0-2); BASOPHIL 1 % (0-2); LYMPHOCYTE 4 % (20-40); MONOCYTE 4 % (0-10); NEUTROPHIL 79 % (50-75); PLATELET ESTIMATE NORMAL (NORMAL); TOTAL CELLS COUNTED 100
[2017-12-31 12:46] LABS: TOXIC GRANULATION PRESENT
[2017-12-31] MEDS: Potassium Chloride 10 mEq ER Tab PO SCH (13:45)
--- NOTE | 2017-12-31 14:49 | CP.PCM.HP ---
History of Present Illness - History of Present Illness History of Present Illness: This is a 67 y/o female hypertensive on peritoneal dialysis for the past 5-6 years who was admitted through the ER because of shortness of breath and cough.m Patient claims that she started with the cough productive of yellowish sputum about 4-5 days ago. She was admitted to a [facility] and was discharged after 2 days but reportedly did not give her any new medication on discharge. Since then her cough reportedly has been persistent and has left her weak and short of breath. She has been taking cough medicine without any relief hence she went to the ER. She denies any chest pain, no palpitations, no dizziness. Present on Admission - Present on Admission Any Indicators Present on Admission: No Review of Systems - Constitutional Constitutional: Fatigue, Weakness - EENT Eyes: As Per HPI - Cardiovascular Cardiovascular: Dyspnea on Exertion - Respiratory Respiratory: Cough, Dyspnea on Exertion, Chest Congestion - Gastrointestinal Gastrointestinal: As Per HPI - Musculoskeletal Musculoskeletal: Arthralgias - Endocrine Endocrine: As Per HPI Past Patient History - Infectious Disease Hx of Infectious Diseases: None ( ) - Past Medical History & Family History Past Medical History?: Yes - Past Social History Smoking Status: Never Smoked Alcohol: None Drugs: Denies Home Situation {Lives}: With Family Domestic Violence: Negative - CARDIAC Hx Cardiac Disorders: Yes Hx Congestive Heart Failure: No Hx Hypertension: Yes - PULMONARY Hx Respiratory Disorders: No - NEUROLOGICAL Hx Neurological Disorder: No - HEENT Hx HEENT Problems: No - RENAL Hx Chronic Kidney Disease: Yes Hx Dialysis: Yes Type of Dialysis Access: Peritoneal Dialysis Date of Last Dialysis Treatment: 12/29/17 - ENDOCRINE/METABOLIC Hx Endocrine Disorders: No - HEMATOLOGICAL/ONCOLOGICAL Hx Blood Disorders: No - INTEGUMENTARY Hx Dermatological Problems: No - MUSCULOSKELETAL/RHEUMATOLOGICAL Hx Musculoskeletal Disorders: Yes Hx Arthritis: Yes Hx Falls: No Hx Osteoarthritis: Yes - GASTROINTESTINAL Hx Gastrointestinal Disorders: No - GENITOURINARY/GYNECOLOGICAL Hx Genitourinary Disorders: No - PSYCHIATRIC Hx Psychophysiologic Disorder: No Hx Substance Use: No - SURGICAL HISTORY Hx Surgeries: Yes Hx Herniorrhaphy: Yes (UMBILICAL) Other/Comment: peritoneal dialysis placement. protruding umbilical hernia repair. - ANESTHESIA Hx Anesthesia: Yes Hx Anesthesia Reactions: No Hx Malignant Hyperthermia: No Meds Allergies/Adverse Reactions: Allergies Allergy/AdvReac Type Severity Reaction Status Date / Time No Known Allergies Allergy Verified 12/30/17 23:19 Physical Exam - Constitutional Appears: No Acute Distress - Head Exam Head Exam: NORMAL INSPECTION - Eye Exam Eye Exam: Normal appearance - ENT Exam ENT Exam: Normal Exam - Neck Exam Neck exam: Positive for: Normal Inspection - Respiratory Exam Respiratory Exam: Rales, Rhonchi - Cardiovascular Exam Cardiovascular Exam: REGULAR RHYTHM, +S1, +S2 - GI/Abdominal Exam GI & Abdominal Exam: Normal Bowel Sounds, Soft - Rectal Exam Rectal Exam: Deferred - Extremities Exam Extremities exam: Positive for: normal inspection - Back Exam Back exam: NORMAL INSPECTION - Psychiatric Exam Psychiatric exam: Normal Affect, Normal Mood - Skin Skin Exam: Dry, Intact, Normal Color Results - Vital Signs Recent Vital Signs: Last Vital Signs Temp 98.2 F 12/31/17 11:00 Pulse 88 12/31/17 13:50 Resp 15 12/31/17 13:50 BP 127/80 12/31/17 13:01 Pulse Ox 98 12/31/17 13:50 - Labs Result Diagrams: 12/31/17 11:38 12/31/17 11:38 Labs: Laboratory Results - last 24 hr 12/31/17 12/31/17 12/31/17 00:26 00:26 11:38 WBC 17.0 H D 16.2 H RBC 3.71 L 3.55 L Hgb 11.1 10.7 L Hct 32.5 L 31.5 L MCV 87.5 D 88.8 MCH 29.9 30.2 MCHC 34.2 34.1 RDW 14.1 14.0 Plt Count 301 293 MPV 8.0 7.8 Neut % (Auto) 87.2 H 87.1 H Lymph % (Auto) 4.2 L 4.9 L [place] % (Auto) 8.1 7.0 Eos % (Auto) 0.2 0.5 Baso % (Auto) 0.3 0.5 Neut # (Auto) 14.8 H 14.1 H Lymph # (Auto) 0.7 L 0.8 L [place] # (Auto) 1.4 H 1.1 H Eos # (Auto) 0.0 0.1 Baso # (Auto) 0.0 0.1 Neutrophils % (Manual) 80 H 79 H Band Neutrophils % 4 H 12 H* Lymphocytes % (Manual) 6 L 4 L Monocytes % (Manual) 10 4 Basophils % (Manual) 1 Toxic Granulation Present Platelet Estimate Normal Normal RBC Morphology Normal Anisocytosis (manual) Slight Sodium 124 L Potassium 2.7 L Chloride 85 L Carbon Dioxide 27 Anion Gap 14 BUN 35 H Creatinine 7.3 H Est GFR ( Amer) 7 Est GFR (Non-Af Amer) 6 Random Glucose 94 Calcium 8.8 Total Bilirubin 0.7 AST 14 D ALT 16 Alkaline Phosphatase 122 Total Protein 5.8 L Albumin 3.0 L Globulin 2.9 Albumin/Globulin Ratio 1.0 12/31/17 11:38 WBC RBC Hgb Hct MCV MCH MCHC RDW Plt Count MPV Neut % (Auto) Lymph % (Auto) [place] % (Auto) Eos % (Auto) Baso % (Auto) Neut # (Auto) Lymph # (Auto) [place] # (Auto) Eos # (Auto) Baso # (Auto) Neutrophils % (Manual) Band Neutrophils % Lymphocytes % (Manual) Monocytes % (Manual) Basophils % (Manual) Toxic Granulation Platelet Estimate RBC Morphology Anisocytosis (manual) Sodium 129 L Potassium 3.7 Chloride 92 L Carbon Dioxide 26 Anion Gap 15 BUN 40 H Creatinine 7.4 H* Est GFR ( Amer) 7 Est GFR (Non-Af Amer) 5 Random Glucose 99 Calcium 8.6 Total Bilirubin 0.5 AST 20 ALT 22 Alkaline Phosphatase 120 Total Protein 5.4 L Albumin 2.6 L Globulin 2.8 Albumin/Globulin Ratio 0.9 L Assessment & Plan - Assessment and Plan (Free Text) Assessment: 67 y/o female hypertensive with ESRD on peritoneal dialysis admitted with severe coughing spells, weakness and shortness of breath. CXR done in the ER showed LLL infiltrate. Patient started on IV antibiotic after cultures were sent. -Hypokalemia and hyponatremia also noted on the admitting blood works -Nephrology and Pulmonary consultations requested. Decision To Admit - Pt Status Changed To: Hospital Disposition Of: Inpatient - Admit Certification Admit to Inpatient:: After my assessment, the patient will require hospitalization for at least two midnights. This is because of the severity of symptoms shown, intensity of services needed, and/or the medical risk in this patient being treated as an outpatient. - InPatient: Physician Admission Certification:: After my assessment, the patient will require hospitalization for at least two midnights. This is because of the severity of symptoms shown, intensity of services needed, and/or the medical risk in this patient being treated as an outpatient. - . Bed Request Type: Telemetry Admitting Physician: Pattie Hudson
[2017-12-31] MEDS: [UNRECOGNIZED DRUG - OTHER] IP SCH ×2 (15:00→22:26)
--- NOTE | 2017-12-31 16:09 | CP.PCM.CON ---
History of Present Illness - History of Present Illness History of Present Illness: reason for consultation: cough and shortness of breath 67-year-old female with history of hypertension, end-stage renal disease on peritoneal dialysis presented to emergency room complaining cough shortness of breath and cough productive off yellowish phlegm for the past 5 days. Patient was admitted recently in [facility] and was discharged without any prescri or medication. Chest x-ray consistent with left lower lung infiltrate Review of Systems - Review of Systems All systems: reviewed and no additional remarkable complaints except (cough, shortness of breath and hoarsenes) Past Patient History - Infectious Disease Hx of Infectious Diseases: None ( ) - Past Medical History & Family History Past Medical History?: Yes - Past Social History Smoking Status: Never Smoked Alcohol: None Drugs: Denies Home Situation {Lives}: With Family Domestic Violence: Negative - CARDIAC Hx Cardiac Disorders: Yes Hx Congestive Heart Failure: No Hx Hypertension: Yes - PULMONARY Hx Respiratory Disorders: No - NEUROLOGICAL Hx Neurological Disorder: No - HEENT Hx HEENT Problems: No - RENAL Hx Chronic Kidney Disease: Yes Hx Dialysis: Yes Type of Dialysis Access: Peritoneal Dialysis Date of Last Dialysis Treatment: 12/29/17 - ENDOCRINE/METABOLIC Hx Endocrine Disorders: No - HEMATOLOGICAL/ONCOLOGICAL Hx Blood Disorders: No - INTEGUMENTARY Hx Dermatological Problems: No - MUSCULOSKELETAL/RHEUMATOLOGICAL Hx Musculoskeletal Disorders: Yes Hx Arthritis: Yes Hx Falls: No Hx Osteoarthritis: Yes - GASTROINTESTINAL Hx Gastrointestinal Disorders: No - GENITOURINARY/GYNECOLOGICAL Hx Genitourinary Disorders: No - PSYCHIATRIC Hx Psychophysiologic Disorder: No Hx Substance Use: No - SURGICAL HISTORY Hx Surgeries: Yes Hx Herniorrhaphy: Yes (UMBILICAL) Other/Comment: peritoneal dialysis placement. protruding umbilical hernia repair. - ANESTHESIA Hx Anesthesia: Yes Hx Anesthesia Reactions: No Hx Malignant Hyperthermia: No Meds Allergies/Adverse Reactions: Allergies Allergy/AdvReac Type Severity Reaction Status Date / Time No Known Allergies Allergy Verified 12/30/17 23:19 - Medications Medications: Current Medications Amlodipine Besylate (Norvasc) 5 mg PO DAILY [facility] Last Admin: 12/31/17 09:44 Dose: 5 mg Cinacalcet (Sensipar) 30 mg PO DAILY [facility] Last Admin: 12/31/17 09:44 Dose: 30 mg Famotidine (Pepcid) 40 mg PO DAILY [facility] Last Admin: 08/09/18 09:44 Dose: 40 mg Guaifenesin/Dextromethorphan (Robitussin Dm) 5 ml PO Q4H PRN PRN Reason: Cough Last Admin: 12/31/17 09:53 Dose: 5 ml Azithromycin 500 mg/ Sodium (Chloride) 250 mls @ 250 mls/hr IVPB DAILY [facility] PRN Reason: Protocol Last Admin: 12/31/17 09:44 Dose: 250 mls/hr Sodium Chloride (Sodium Chloride 0.9%) 1,000 mls @ 60 mls/hr IV .[id number] [facility] Last Admin: 12/31/17 12:00 Dose: 60 mls/hr Peritoneal Dialysis Solution (Dianeal Pd-2 Soln 2.5%) 2,000 mls @ 0 mls/hr IP Q8 [facility] PRN Reason: Per Protocol Losartan Potassium (Cozaar) 50 mg PO BID [facility] Last Admin: 12/31/17 09:43 Dose: 50 mg Potassium Chloride (Klor-Con 10) 20 meq PO BRK [facility] Last Admin: 12/31/17 13:45 Dose: 20 meq Physical Exam - Head Exam Head Exam: ATRAUMATIC, NORMOCEPHALIC - ENT Exam ENT Exam: Mucous Membranes Moist - Neck Exam Neck exam: Positive for: Normal Inspection - Respiratory Exam Respiratory Exam: Decreased Breath Sounds - Cardiovascular Exam Cardiovascular Exam: REGULAR RHYTHM - Extremities Exam Extremities exam: Positive for: normal inspection Results - Vital Signs Recent Vital Signs: Last Vital Signs Temp 98.2 F 12/31/17 11:00 Pulse 88 12/31/17 13:50 Resp 15 12/31/17 13:50 BP 127/80 12/31/17 13:01 Pulse Ox 98 12/31/17 13:50 - Labs Result Diagrams: 12/31/17 11:38 12/31/17 11:38 Labs: Laboratory Results - last 24 hr 12/31/17 12/31/17 12/31/17 00:26 00:26 11:38 WBC 17.0 H D 16.2 H RBC 3.71 L 3.55 L Hgb 11.1 10.7 L Hct 32.5 L 31.5 L MCV 87.5 D 88.8 MCH 29.9 30.2 MCHC 34.2 34.1 RDW 14.1 14.0 Plt Count 301 293 MPV 8.0 7.8 Neut % (Auto) 87.2 H 87.1 H Lymph % (Auto) 4.2 L 4.9 L [place] % (Auto) 8.1 7.0 Eos % (Auto) 0.2 0.5 Baso % (Auto) 0.3 0.5 Neut # (Auto) 14.8 H 14.1 H Lymph # (Auto) 0.7 L 0.8 L [place] # (Auto) 1.4 H 1.1 H Eos # (Auto) 0.0 0.1 Baso # (Auto) 0.0 0.1 Neutrophils % (Manual) 80 H 79 H Band Neutrophils % 4 H 12 H* Lymphocytes % (Manual) 6 L 4 L Monocytes % (Manual) 10 4 Basophils % (Manual) 1 Toxic Granulation Present Platelet Estimate Normal Normal RBC Morphology Normal Anisocytosis (manual) Slight Sodium 124 L Potassium 2.7 L Chloride 85 L Carbon Dioxide 27 Anion Gap 14 BUN 35 H Creatinine 7.3 H Est GFR ( Amer) 7 Est GFR (Non-Af Amer) 6 Random Glucose 94 Calcium 8.8 Total Bilirubin 0.7 AST 14 D ALT 16 Alkaline Phosphatase 122 Total Protein 5.8 L Albumin 3.0 L Globulin 2.9 Albumin/Globulin Ratio 1.0 12/31/17 11:38 WBC RBC Hgb Hct MCV MCH MCHC RDW Plt Count MPV Neut % (Auto) Lymph % (Auto) [place] % (Auto) Eos % (Auto) Baso % (Auto) Neut # (Auto) Lymph # (Auto) [place] # (Auto) Eos # (Auto) Baso # (Auto) Neutrophils % (Manual) Band Neutrophils % Lymphocytes % (Manual) Monocytes % (Manual) Basophils % (Manual) Toxic Granulation Platelet Estimate RBC Morphology Anisocytosis (manual) Sodium 129 L Potassium 3.7 Chloride 92 L Carbon Dioxide 26 Anion Gap 15 BUN 40 H Creatinine 7.4 H* Est GFR ( Amer) 7 Est GFR (Non-Af Amer) 5 Random Glucose 99 Calcium 8.6 Total Bilirubin 0.5 AST 20 ALT 22 Alkaline Phosphatase 120 Total Protein 5.4 L Albumin 2.6 L Globulin 2.8 Albumin/Globulin Ratio 0.9 L Assessment & Plan (1) Pneumonia Assessment and Plan: left lower lung infiltrate Continue azithromycin and add Rocephin Legionella and Mycoplasma titers Continue peritoneal dialysis Culture and sensitivity Status: Acute (2) ESRD (end stage renal disease) on dialysis Status: Chronic
[2017-12-31] MEDS: Piperacill/Tazo 2.25gm in Dex 2.25 GM/50 ML BAG IVPB SCH (17:00)
[2018-01-01] MEDS: Piperacill/Tazo 2.25gm in Dex 2.25 GM/50 ML BAG IVPB SCH ×3 (02:15→18:00)
[2018-01-01 06:10] LABS: BASO % 0.2 % (0.0-2.0); EOS # 0.1 K/uL (0.0-0.7); EOS % 0.4 % (0.0-4.0); LYMPH # 0.6 K/uL (1.0-4.3); LYMPH % 3.4 % (20.0-40.0); MEAN CELL VOLUME 88.3 fL (81.0-99.0); MEAN CORPUSCULAR HEMOGLOBIN 29.9 pg (27.0-31.0); MEAN CORPUSCULAR HGB CONC 33.9 g/dL (33.0-37.0); MEAN PLATELET VOLUME 7.7 fL (7.2-11.7); MONO # 1.1 K/uL (0.0-0.8); MONO % 5.9 % (0.0-10.0); NEUT # 16.2 K/uL (1.8-7.0); NEUT % 90.1 % (50.0-75.0); PLATELET COUNT 343 K/uL (130-400); RBC 3.67 Mil/uL (3.80-5.20); RED CELL DISTRIBUTION WIDTH 14.2 % (11.5-14.5)
[2018-01-01] MEDS: Sodium Chloride 0.9% 1,000 ML IV SCH ×2 (06:11→08:00)
--- NOTE | 2018-01-01 06:14 | CON ---
Copied To: Junior Deluca MD Attending MD: Junior Deluca MD DATE: 12/31/2017 RENAL CONSULTATION LOCATION: The patient is located in ICU, room 14, bed A, under telemetry. REASON FOR RENAL CONSULTATION: Electrolyte imbalance; hyponatremia; hypokalemia; end-stage renal disease, on peritoneal dialysis; and pneumonia. REQUESTED BY: Pattie Locke MD HISTORY OF PRESENT ILLNESS: Mrs. Cade is about 67 years old, very pleasant, elderly [place] female with a past medical history significant for longstanding hypertension for many years, end-stage renal disease, on peritoneal dialysis for the last five years, following in [facility], who was presented to the emergency room with chief complaints of fever, shortness of breath, productive cough with yellow sputum for about three days. As per the patient, she developed cough and congestion and laryngitis about three days ago, which is getting worse and decided to come to the hospital. Denies any chest pain. Denies any palpitation. Denies any nausea or vomiting. The patient does complain of loose bowel movement x1 yesterday and complains of feeling weak and tired. No swelling of the legs and no seizures. No bleeding per rectum. PAST MEDICAL HISTORY: Significant for hypertension for many years, end-stage renal disease, on peritoneal dialysis for five years. PAST SURGICAL HISTORY: Status post Tenckhoff catheter. ALLERGIES: NO KNOWN DRUG ALLERGIES. SOCIAL HISTORY: No smoking. No alcohol. No drugs. PERSONAL HISTORY: She is and she has three daughters. 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 MEDICATIONS: Her current medications include as follows: Azithromycin 500 mg daily, losartan 50 mg p.o. b.i.d., KCl 20 mg p.o. x1 dose. The patient was also given potassium 40 mEq p.o. x1 dose on admission in the emergency room, amlodipine 5 mg p.o. daily, Pepcid 40 mg p.o. daily, Robitussin DM 5 mL p.o. every 4 hours p.r.n., Sensipar 30 mg p.o. daily, IV fluids normal saline at 60 mL per hour, and Zosyn 2.25 g IV every 8 hours. REVIEW OF SYSTEMS: Significant for shortness of breath, cough associated with yellow sputum, and generalized weakness. All other review of systems are reviewed and are negative. PHYSICAL EXAMINATION: VITAL SIGNS: As follows: This morning, blood pressure 138/86, pulse 85, respirations 20, temperature 98.2, saturation 97%. Height 5 feet 3 inches, and weight is 152 pounds. GENERAL: Mrs. Cade is a 67-year-old elderly [place] female with hoarseness of voice, moderately built, moderately nourished, not in acute distress. HEENT: Pupils normal, reactive to light and accommodation. Conjunctivae pink. Sclerae anicteric. Tongue is moist and trachea is midline. LUNGS: Symmetric on both sides. Bilateral breath sounds present. Occasional left basal crackles present. CVS: [place] at the fifth intercostal space, midclavicular line. S1, S2 audible. No murmur or gallop. ABDOMEN: Normal in appearance. Soft, tympanitic. No guarding, no rigidity. No hepatosplenomegaly. She has a Tenckhoff catheter. 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 Nonfocal neuro examination. Cranial nerves II-XII grossly intact. Sensory and motor system are within normal limits. EXTREMITIES: No cyanosis, no clubbing, no edema. LABORATORY DATA: Include as follows: As of 12/31/2017, WBC 17, hemoglobin 11.1, hematocrit is 32.5, platelets 301. Sodium is 124, potassium 2.7, chloride 85, CO2 27, BUN 35, creatinine 7.3, calcium 8.8, and glucose 94. Total bili 0.7, AST 14, ALT 16, alkaline phosphatase 122, total protein 5.8, albumin is 3. Repeat labs as of 12/31/2017 at 11:38 a.m., WBC 16.2, hemoglobin 10.7, hematocrit 31.5, platelets 293, neutrophils 79, bands 12, lymph 4, monos 4, eosinophils and basophils 1. Sodium 129, potassium 3.7, chloride 92, CO2 26, BUN 40, creatinine 7.4, glucose 99, and calcium 8.6. Total bili 0.5, AST 20, ALT 22, alkaline phosphatase 120, total protein 5.4, albumin 2.6. Chest x-ray as of 12/31/2017 at 0012 hours, impression: Interval infiltrate lateral left lung base, followup to resolution recommended. ASSESSMENT AND PLAN: In summary, Mrs. Cade is a 67-year-old elderly [place] female with longstanding hypertension, end-stage renal disease, on peritoneal dialysis for the last five years who was admitted with chief complaints of cough associated with yellow sputum, shortness of breath, and loose bowel movement x1 yesterday, cough for three days, and fever, elevated WBC count and bandemia, low potassium, and low sodium. 1. End-stage renal disease. Continue peritoneal dialysis daily with 2.5% Dianeal solution every 8 hours, dwelling at 10 minutes, dwelling time is seven and half hours and dwell out is 20 minutes. Also, we will give KCl 20 mEq p.o. x1 and also start intravenous fluids normal saline at 60, 70 mL per hour and repeat BMP and CBC in a.m. Discuss regarding peritoneal dialysis with Intensive Care Unit nurse in rounds. 2. Left lung pneumonia. Continue intravenous antibiotics, Zosyn and Zithromax as per Dr. Locke. Continue all other medications. We will also check phosphorus and PTH intact level. Encouraged p.o. intake and dietary supplement, Nepro 1 can p.o. daily and Pro-Stat 30 mL p.o. b.i.d. We will follow with you. Thank you for allowing me to participate in your patient's care. Junior Deluca MD
[2018-01-01 06:25] LABS: CALCIUM 8.5 mg/dl (8.6-10.4)
[2018-01-01] MEDS: [UNRECOGNIZED DRUG - OTHER] IP SCH ×3 (07:10→22:13)
[2018-01-01 08:09] LABS: BANDS 13 % (0-2); LYMPHOCYTE 4 % (20-40); MONOCYTE 4 % (0-10); NEUTROPHIL 79 % (50-75); PLATELET ESTIMATE NORMAL (NORMAL); TOTAL CELLS COUNTED 100
[2018-01-01 08:10] LABS: LARGE PLATELETS PRESENT; TOXIC GRANULATION PRESENT
[2018-01-01] MEDS: Potassium Chloride 10 mEq ER Tab PO SCH (09:00)
[2018-01-01] MEDS: Azithromycin 500 MG in Sodium Chloride 0.9% 250 ML IVPB SCH (09:30)
[2018-01-01] MEDS: guaiFENesin DM 100 mg-10 mg/5 ml UD PO PRN (09:40)
--- NOTE | 2018-01-01 11:38 | CP.PCM.PN ---
Subjective - Date & Time of Evaluation Date of Evaluation: 01/01/18 Time of Evaluation: 11:38 - Subjective Subjective: pt is seen and examined, follow up consult is dictated #[id number] c/w PD c/w iv abx kcl 40 meq po x1, d/c ivf Objective - Vital Signs/Intake and Output Vital Signs (last 24 hours): Temp Pulse Resp BP Pulse Ox 98.2 F 99 H 19 181/104 H 88 L 01/01/18 08:00 01/01/18 10:01 01/01/18 10:01 01/01/18 10:01 01/01/18 10:01 Intake and Output: 01/01/18 01/01/18 06:59 18:59 Intake Total 720 Output Total 800 Balance -80 - Medications Medications: Current Medications Acetylcysteine (Acetylcysteine 20%) 4 ml INH RQ6 [facility] Amlodipine Besylate (Norvasc) 5 mg PO DAILY [facility] Last Admin: 01/01/18 09:42 Dose: 5 mg Cinacalcet (Sensipar) 30 mg PO DAILY [facility] Last Admin: 01/01/18 09:42 Dose: 30 mg Famotidine (Pepcid) 40 mg PO DAILY [facility] Last Admin: 01/01/18 09:42 Dose: 40 mg Guaifenesin/Dextromethorphan (Robitussin Dm) 5 ml PO Q4H PRN PRN Reason: Cough Last Admin: 01/01/18 09:40 Dose: 5 ml Heparin Sodium (Porcine) (Heparin) 5,000 units SC Q12 [facility] Last Admin: 01/01/18 09:40 Dose: 5,000 units Azithromycin 500 mg/ Sodium (Chloride) 250 mls @ 250 mls/hr IVPB DAILY [facility] PRN Reason: Protocol Last Admin: 01/01/18 09:30 Dose: 250 mls/hr Peritoneal Dialysis Solution (Dianeal Pd-2 Soln 2.5%) 2,000 mls @ 0 mls/hr IP Q8 [facility] PRN Reason: Per Protocol Last Admin: 01/01/18 07:10 Dose: 9,999 mls/hr Piperacillin Sod/Tazobactam Sod (Zosyn 2.25 Gm Iv Premix) 2.25 gm in 50 mls @ 100 mls/hr IVPB Q8H [facility] PRN Reason: Protocol Last Admin: 01/01/18 09:00 Dose: 100 mls/hr Losartan Potassium (Cozaar) 50 mg PO BID [facility] Last Admin: 01/01/18 09:41 Dose: 50 mg Potassium Chloride (Klor-Con 10) 20 meq PO BRK [facility] Last Admin: 01/01/18 09:00 Dose: 20 meq Potassium Chloride (K-Dur 20 Meq Er Tab) 20 meq PO ONCE ONE Stop: 01/02/18 11:46 - Labs Labs: 01/01/18 05:57 01/01/18 05:57
[2018-01-01] MEDS ORDERED: Potassium Chloride 20 mEq ER Tab PO ONE (11:59)
[2018-01-01] MEDS: Acetylcysteine 20% Inhal Soln (4ml) INH SCH (13:17)
--- NOTE | 2018-01-01 13:43 | CP.PCM.PN ---
Subjective - Date & Time of Evaluation Date of Evaluation: 01/01/18 Time of Evaluation: 10:20 - Subjective Subjective: patient seen and examined Breathing better Able to talk Afebrile No chest pain Status post peritoneal dialysis yest Objective - Vital Signs/Intake and Output Vital Signs (last 24 hours): Temp Pulse Resp BP Pulse Ox 98.2 F 99 H 19 181/104 H 88 L 01/01/18 08:00 01/01/18 10:01 01/01/18 10:01 01/01/18 10:01 01/01/18 10:01 Intake and Output: 01/01/18 01/01/18 06:59 18:59 Intake Total 720 Output Total 800 Balance -80 - Medications Medications: Current Medications Acetylcysteine (Acetylcysteine 20%) 4 ml INH RQ6 [facility] Last Admin: 01/01/18 13:17 Dose: Not Given Amlodipine Besylate (Norvasc) 5 mg PO DAILY [facility] Last Admin: 01/01/18 09:42 Dose: 5 mg Cinacalcet (Sensipar) 30 mg PO DAILY [facility] Last Admin: 01/01/18 09:42 Dose: 30 mg Famotidine (Pepcid) 20 mg PO DAILY [facility] Guaifenesin/Dextromethorphan (Robitussin Dm) 5 ml PO Q4H PRN PRN Reason: Cough Last Admin: 01/01/18 09:40 Dose: 5 ml Heparin Sodium (Porcine) (Heparin) 5,000 units SC Q12 [facility] Last Admin: 01/01/18 09:40 Dose: 5,000 units Azithromycin 500 mg/ Sodium (Chloride) 250 mls @ 250 mls/hr IVPB DAILY [facility] PRN Reason: Protocol Last Admin: 01/01/18 09:30 Dose: 250 mls/hr Peritoneal Dialysis Solution (Dianeal Pd-2 Soln 2.5%) 2,000 mls @ 0 mls/hr IP Q8 [facility] PRN Reason: Per Protocol Last Admin: 01/01/18 07:10 Dose: 9,999 mls/hr Piperacillin Sod/Tazobactam Sod (Zosyn 2.25 Gm Iv Premix) 2.25 gm in 50 mls @ 100 mls/hr IVPB Q8H [facility] PRN Reason: Protocol Last Admin: 01/01/18 09:00 Dose: 100 mls/hr Losartan Potassium (Cozaar) 50 mg PO BID [facility] Last Admin: 01/01/18 09:41 Dose: 50 mg Pneumococcal Polyvalent Vaccine (Pneumovax 23 Vaccine) 0.5 ml IM .ONCE ONE Stop: 01/02/18 11:52 Potassium Chloride (Klor-Con 10) 20 meq PO BRK [facility] Last Admin: 01/01/18 09:00 Dose: 20 meq - Labs Labs: 01/01/18 05:57 01/01/18 05:57 - Head Exam Head Exam: ATRAUMATIC, NORMOCEPHALIC - Eye Exam Eye Exam: Normal appearance - ENT Exam ENT Exam: Mucous Membranes Moist - Neck Exam Neck Exam: Normal Inspection - Respiratory Exam Respiratory Exam: Clear to Ausculation Bilateral - Cardiovascular Exam Cardiovascular Exam: REGULAR RHYTHM Assessment and Plan (1) Pneumonia Assessment & Plan: continue antibiotics pending Legionella mycoplasma titer Continue peritoneal dialysis Pro calcitonin level Status: Acute (2) ESRD (end stage renal disease) on dialysis Status: Chronic
--- NOTE | 2018-01-01 14:48 | CP.PCM.PN ---
Subjective - Date & Time of Evaluation Date of Evaluation: 01/01/18 Time of Evaluation: 14:30 - Subjective Subjective: - c/o sore throat and hoarse voice from incessant coughing spells, +yellowish thick sputum -afebrile -CBC noted- elevated WBC count and bands -CMP noted Objective - Vital Signs/Intake and Output Vital Signs (last 24 hours): Temp Pulse Resp BP Pulse Ox 98.2 F 99 H 19 181/104 H 88 L 01/01/18 08:00 01/01/18 10:01 01/01/18 10:01 01/01/18 10:01 01/01/18 10:01 Intake and Output: 01/01/18 01/01/18 06:59 18:59 Intake Total 720 Output Total 800 Balance -80 - Medications Medications: Current Medications Acetylcysteine (Acetylcysteine 20%) 4 ml INH RQ6 ON LICENSE OF [facility] Last Admin: 01/01/18 13:17 Dose: Not Given Amlodipine Besylate (Norvasc) 5 mg PO DAILY ON LICENSE OF [facility] Last Admin: 01/01/18 09:42 Dose: 5 mg Cinacalcet (Sensipar) 30 mg PO DAILY ON LICENSE OF [facility] Last Admin: 01/01/18 09:42 Dose: 30 mg Famotidine (Pepcid) 20 mg PO DAILY ON LICENSE OF [facility] Guaifenesin/Dextromethorphan (Robitussin Dm) 5 ml PO Q4H PRN PRN Reason: Cough Last Admin: 01/01/18 09:40 Dose: 5 ml Heparin Sodium (Porcine) (Heparin) 5,000 units SC Q12 ON LICENSE OF [facility] Last Admin: 01/01/18 09:40 Dose: 5,000 units Azithromycin 500 mg/ Sodium (Chloride) 250 mls @ 250 mls/hr IVPB DAILY [facility] PRN Reason: Protocol Last Admin: 01/01/18 09:30 Dose: 250 mls/hr Peritoneal Dialysis Solution (Dianeal Pd-2 Soln 2.5%) 2,000 mls @ 0 mls/hr IP Q8 [facility] PRN Reason: Per Protocol Last Admin: 01/01/18 07:10 Dose: 9,999 mls/hr Piperacillin Sod/Tazobactam Sod (Zosyn 2.25 Gm Iv Premix) 2.25 gm in 50 mls @ 100 mls/hr IVPB Q8H [facility] PRN Reason: Protocol Last Admin: 01/01/18 09:00 Dose: 100 mls/hr Losartan Potassium (Cozaar) 50 mg PO BID ON LICENSE OF [facility] Last Admin: 01/01/18 09:41 Dose: 50 mg Pneumococcal Polyvalent Vaccine (Pneumovax 23 Vaccine) 0.5 ml IM .ONCE ONE Stop: 01/02/18 11:52 Potassium Chloride (Klor-Con 10) 20 meq PO BRK ON LICENSE OF [facility] Last Admin: 01/01/18 09:00 Dose: 20 meq - Labs Labs: 01/01/18 05:57 01/01/18 05:57 - Constitutional Appears: No Acute Distress - Head Exam Head Exam: NORMAL INSPECTION - Eye Exam Eye Exam: Normal appearance - Neck Exam Neck Exam: Normal Inspection - Respiratory Exam Respiratory Exam: Rales, Rhonchi - Cardiovascular Exam Cardiovascular Exam: REGULAR RHYTHM, +S1, +S2 - GI/Abdominal Exam GI & Abdominal Exam: Soft, Normal Bowel Sounds - Extremities Exam Extremities Exam: Normal Inspection - Neurological Exam Neurological Exam: Alert, Awake, Oriented x3 - Psychiatric Exam Psychiatric exam: Normal Affect, Normal Mood - Skin Skin Exam: Dry, Intact, Normal Color, Warm Assessment and Plan (1) Pneumonia Assessment & Plan: continuous coughing spells, + hoarse voice + leukocytosis of 18,000 with bandemia- 13 afebrile with stable VS continue antibiotics and cough syrup prn, blood c/s- no growth sputum c/s requested Status: Acute (2) ESRD (end stage renal disease) on dialysis Assessment & Plan: on daily peritoneal dialysis Status: Chronic (3) Hyponatremia Assessment & Plan: fluctuating Na levels noted Status: Acute (4) Hypertension Assessment & Plan: intermittent elevation noted especialy when she is coughing, otherwise controlled on current meds. Status: Chronic
--- NOTE | 2018-01-01 15:27 | CARD ---
APPROVED REPORT Date of service: 01/01/2018 EXAM: Two-dimensional and M-mode echocardiogram with Doppler and color Doppler. Other Information Quality : GoodRhythm : INDICATION Dyspnea ESRD RISK FACTORS Hypertension 2D DIMENSIONS IVSd0.9 (0.7-1.1cm)LVDd4.6 (3.9-5.9cm) PWd1.2 (0.7-1.1cm)LVDs3.3 (2.5-4.0cm) FS (%) 28.0 %LVEF (%)54.2 (>50%) M-Mode DIMENSIONS Left Atrium (MM)3.14 (2.5-4.0cm)Aortic Root2.64 (2.2-3.7cm) Aortic Cusp Exc.1.87 (1.5-2.0cm) Mitral Valve MV E Owekyqwf80.8cm/sMV A Fnleuyde372.9cm/sE/A ratio0.4 PISA0.45 cm TDI E/Lateral E'0.0E/Medial E'0.0 LEFT VENTRICLE The left ventricle is normal size. There is normal left ventricular wall thickness. The left ventricular systolic function is normal. The left ventricular ejection fraction is within the normal range. There is normal LV segmental wall motion. Possible Grade II-pseudonormal diastolic dysfunction. RIGHT VENTRICLE The right ventricle is normal size. There is normal right ventricular wall thickness. The right ventricular systolic function is normal. ATRIA The left atrial index is mildly increased. The lateral wall appears thicker than normal. A catheter A can not be excluded. Clinical correlation is suggested. The interatrial septum is intact with no evidence for an atrial septal defect. AORTIC VALVE The aortic valve is normal in structure. No aortic regurgitation is present. MITRAL VALVE The mitral valve is normal in structure. Mitral regurgitation is mild. TRICUSPID VALVE The tricuspid valve is normal in structure. There is no tricuspid valve regurgitation noted. PULMONIC VALVE The pulmonary valve is normal in structure. GREAT VESSELS The aortic root is normal in size. The IVC is normal in size and collapses >50% with inspiration. PERICARDIAL EFFUSION There is a trace pericardial effusion seen behind the right atrium. <Conclusion> SOME IMAGES ARE OFF AXIS The left ventricular systolic function is normal. There is normal LV segmental wall motion. Possible Grade II-pseudonormal diastolic dysfunction. The right ventricular systolic function is normal. The left atrial index is mildly increased. The left atrial lateral wal l appears thickened. A catheter can not be excluded. Clinical correlation is suggested. Mild mitral regurgitation. There is a trace pericardial effusion seen behind the right atrium.
[2018-01-01] MEDS: Promethazine/Cod 6.25mg-10mg/5ml Syr UD PO PRN (20:18)
[2018-01-02] MEDS: Promethazine/Cod 6.25mg-10mg/5ml Syr UD PO PRN ×3 (01:28→21:37)
[2018-01-02] MEDS: Piperacill/Tazo 2.25gm in Dex 2.25 GM/50 ML BAG IVPB SCH ×3 (01:29→17:00)
[2018-01-02] MEDS: Acetylcysteine 20% Inhal Soln (4ml) INH SCH ×4 (02:40→19:46)
[2018-01-02] MEDS: [UNRECOGNIZED DRUG - OTHER] IP SCH ×3 (06:00→22:18)
[2018-01-02 06:28] LABS: BASO # 0.1 K/uL (0.0-0.2); MEAN PLATELET VOLUME 7.8 fL (7.2-11.7); RBC 3.49 Mil/uL (3.80-5.20); WHITE BLOOD COUNT 15.1 K/uL (4.8-10.8)
[2018-01-02 06:40] LABS: BASO % 0.8 % (0.0-2.0); EOS # 0.4 K/uL (0.0-0.7); EOS % 2.4 % (0.0-4.0); HEMOGLOBIN 10.5 g/dL (11.0-16.0); LYMPH % 6.4 % (20.0-40.0); MEAN CELL VOLUME 88.2 fL (81.0-99.0); MONO # 0.9 K/uL (0.0-0.8); NEUT # 12.7 K/uL (1.8-7.0); NEUT % 84.4 % (50.0-75.0); PLATELET COUNT 350 K/uL (130-400); RED CELL DISTRIBUTION WIDTH 13.9 % (11.5-14.5)
[2018-01-02 06:42] LABS: ALB/GLOB RATIO 0.8 (1.0-2.1); ALBUMIN 2.3 g/dL (3.5-5.0); CALCIUM 8.3 mg/dl (8.6-10.4)
--- NOTE | 2018-01-02 07:58 | PN ---
Copied To: Junior Deluca MD Attending MD: Junior Deluca MD DATE: 01/01/2018 FOLLOWUP RENAL CONSULTATION LOCATION: The patient is located in ICU 14A. REQUESTED BY: Pattie Locke MD SUBJECTIVE: The patient is a 67-year-old elderly very pleasant [place] female with a history of longstanding hypertension; end-stage renal disease, on peritoneal dialysis three times every day, was admitted with chief complaints of fever, cough, shortness of breath, cough associated with yellow sputum and elevated WBC count and bandemia with left lower lobe infiltrate. The patient still complains of persistent cough. No chest pain. No palpitation. No nausea, vomiting, or diarrhea. Poor appetite. PHYSICAL EXAMINATION: VITAL SIGNS: As follows: Blood pressure 153/80, pulse 98, respirations about 21, and saturation 99%, and temperature is 98.2. Height 5 feet 3 inches. Weight is 151 pounds. GENERAL: The patient is a 67-year-old elderly very pleasant [place] female, moderately built, moderately nourished, not in distress. HEENT: Pupils are normal and reactive to light and accommodation. Conjunctivae pink. Sclerae anicteric. Tongue is moist. Trachea is midline. LUNGS: Symmetric on both sides. Bilateral breath sounds present. Clear to auscultation on the right side, and the patient has basal crackles on the left side. CARDIOVASCULAR SYSTEM: [place] at the fifth intercostal space, midclavicular line. S1, S2 audible. No murmur or gallop. ABDOMEN: Normal in appearance, soft, tympanitic. No guarding. No rigidity. No hepatosplenomegaly. CENTRAL NERVOUS SYSTEM: The patient is alert, awake, oriented x3. Nonfocal neuro examination. Cranial nerves II-XII grossly intact. Sensory and motor system is grossly within normal limits. EXTREMITIES: No cyanosis, no clubbing, no edema. MEDICATIONS: Her current medications include as follows: Zithromax 500 mg p.o. daily, losartan 50 mg p.o. b.i.d., subcu heparin 5000 units every 12 hours, Klor-Con 20 mEq p.o. x1, amlodipine 5 mg p.o. daily, Pepcid 20 mg p.o. daily, Phenergan with Codeine 5 mL p.o. every 4 hours p.r.n., pneumococcal vaccine x1, Sensipar 30 mg p.o. daily, and Zosyn 2.25 g IV every 8 hours. LABORATORY DATA: Include as follows: WBC 18, hemoglobin 11, hematocrit is 32.4, platelets 343. Neutrophils 79, bands 13, lymphs 4, monos 4. Sodium 126, potassium is 3, chloride 89, CO2 of 26, BUN 38, creatinine 6.6, glucose 125, calcium 8.5, phosphorus 2.4, magnesium is 1.8. ProBNP is 21,400. Blood culture x2 negative, day one. MRSA screening was negative, and sputum culture is pending as of 01/01/2018. ASSESSMENT AND PLAN: In summary, the patient is a 67-year-old elderly female with hypertension, end-stage renal disease, on peritoneal dialysis about five years ago who was admitted with shortness of breath, cough that is associated with yellow sputum, left lower lobe infiltrates, and bandemia. 1. End-stage renal disease. Continue peritoneal dialysis with two liters volume at 2.5% dialysis solution every 8 hours. The patient is positive for about 700 mL in the last 24 hours. Continue current management. 2. Hypokalemia. We will give another dose of potassium supplement today. 3. Left lower lobe pneumonia. Continue Zithromax and Zosyn as per intensive care unit team. 4. Hypertension. 5. Hyponatremia, most likely secondary to decreased oral intake of salt and also secondary to hydrochlorothiazide at home. Continue losartan and avoid hydrochlorothiazide due to hyponatremia. Consider to check Legionella antigen and mycoplasma antibody. We will follow with you. Thank you for allowing me to participate in your patient's care. Junior Deluca MD
[2018-01-02 08:22] LABS: BANDS 5 % (0-2); EOSINOPHIL 3 % (0-4); LYMPHOCYTE 7 % (20-40); MONOCYTE 4 % (0-10); NEUTROPHIL 81 % (50-75); PLATELET ESTIMATE NORMAL (NORMAL); TOTAL CELLS COUNTED 100
[2018-01-02 08:23] LABS: ANISOCYTOSIS SLIGHT; HYPOCHROMIC SLIGHT; POLYCHROMIC SLIGHT; TOXIC GRANULATION PRESENT
[2018-01-02 08:24] LABS: LARGE PLATELETS PRESENT
[2018-01-02] MEDS: Potassium Chloride 10 mEq ER Tab PO SCH (08:59)
[2018-01-02] MEDS: Azithromycin 500 MG in Sodium Chloride 0.9% 250 ML IVPB SCH (09:30)
[2018-01-02] MEDS ORDERED: Potassium Chloride 20 mEq ER Tab PO ONE ×2 (11:45→14:00)
--- NOTE | 2018-01-02 11:50 | CP.PCM.PN ---
Subjective - Date & Time of Evaluation Date of Evaluation: 01/02/18 Time of Evaluation: 11:50 - Subjective Subjective: pt is seen and examined, follow up consult is dictated #[id number] kcl 40 meq po x at 1 pm Objective - Vital Signs/Intake and Output Vital Signs (last 24 hours): Temp Pulse Resp BP Pulse Ox 98.3 F 95 H 24 130/80 97 01/02/18 06:00 01/02/18 06:00 01/02/18 06:00 01/02/18 06:00 01/02/18 04:00 Intake and Output: 01/02/18 01/02/18 06:59 18:59 Intake Total 4290 Output Total 4300 Balance -10 - Medications Medications: Current Medications Acetylcysteine (Acetylcysteine 20%) 4 ml INH RQ6 [facility] Last Admin: 01/02/18 02:40 Dose: Not Given Albuterol/Ipratropium (Duoneb 3 Mg/0.5 Mg (3 Ml) Ud) 3 ml INH RQ6 [facility] Amlodipine Besylate (Norvasc) 5 mg PO DAILY [facility] Last Admin: 01/02/18 09:00 Dose: 5 mg Cinacalcet (Sensipar) 30 mg PO DAILY [facility] Last Admin: 01/02/18 09:00 Dose: 30 mg Famotidine (Pepcid) 20 mg PO DAILY [facility] Last Admin: 01/02/18 08:59 Dose: 20 mg Heparin Sodium (Porcine) (Heparin) 5,000 units SC Q12 [facility] Last Admin: 01/02/18 09:00 Dose: 5,000 units Azithromycin 500 mg/ Sodium (Chloride) 250 mls @ 250 mls/hr IVPB DAILY [facility] PRN Reason: Protocol Last Admin: 01/01/18 09:30 Dose: 250 mls/hr Peritoneal Dialysis Solution (Dianeal Pd-2 Soln 2.5%) 2,000 mls @ 0 mls/hr IP Q8 [facility] PRN Reason: Per Protocol Last Admin: 01/02/18 06:00 Dose: 9,999 mls/hr Piperacillin Sod/Tazobactam Sod (Zosyn 2.25 Gm Iv Premix) 2.25 gm in 50 mls @ 100 mls/hr IVPB Q8H [facility] PRN Reason: Protocol Last Admin: 01/02/18 01:29 Dose: 100 mls/hr Losartan Potassium (Cozaar) 50 mg PO BID [facility] Last Admin: 01/02/18 09:00 Dose: 50 mg Pneumococcal Polyvalent Vaccine (Pneumovax 23 Vaccine) 0.5 ml IM .ONCE ONE Stop: 01/02/18 11:52 Potassium Chloride (Klor-Con 10) 20 meq PO BRK [facility] Last Admin: 01/02/18 08:59 Dose: 20 meq Potassium Chloride (K-Dur 20 Meq Er Tab) 40 meq PO ONCE ONE Stop: 01/02/18 14:01 Promethazine HCl/Codeine (Phenergan/Codeine Oral Syrup) 5 ml PO Q4 PRN PRN Reason: Cough Last Admin: 01/02/18 09:00 Dose: 5 ml - Labs Labs: 01/02/18 06:21 01/02/18 06:17
[2018-01-02] MEDS ORDERED: Pneumococcal 23-Valent Vaccine IM ONE (11:51)
--- NOTE | 2018-01-02 13:12 | CARD ---
APPROVED REPORT Date of service: 12/31/2017 EKG Measurement Heart [id number] <Conclusion> Normal sinus rhythm Normal ECG
[2018-01-02] MEDS: Albuterol-Ipratrop 3 mg / 0.5 (3 ml) UD INH SCH ×2 (13:30→19:46)
--- NOTE | 2018-01-02 19:07 | CP.PCM.PN ---
Subjective - Date & Time of Evaluation Date of Evaluation: 01/02/18 Time of Evaluation: 18:45 - Subjective Subjective: Patient still has coughing speels but seems to be better no shortness of breath but feels weak when she gets oob. Labs noted. WBC count less, bands also less Echocardiogram report nopted. Will review repeat CXR- shows congestion compared to previous CXR Objective - Vital Signs/Intake and Output Vital Signs (last 24 hours): Temp Pulse Resp BP Pulse Ox 98.3 F 122 H 27 H 138/80 99 01/02/18 16:00 01/02/18 17:00 01/02/18 16:00 01/02/18 16:00 01/02/18 17:00 - Medications Medications: Current Medications Acetylcysteine (Acetylcysteine 20%) 4 ml INH RQ6 [facility] Last Admin: 01/02/18 02:40 Dose: Not Given Albuterol/Ipratropium (Duoneb 3 Mg/0.5 Mg (3 Ml) Ud) 3 ml INH RQ6 [facility] Amlodipine Besylate (Norvasc) 5 mg PO DAILY [facility] Last Admin: 01/02/18 09:00 Dose: 5 mg Cinacalcet (Sensipar) 30 mg PO DAILY [facility] Last Admin: 01/02/18 09:00 Dose: 30 mg Famotidine (Pepcid) 20 mg PO DAILY COUNTS INCLUDE 234 BEDS AT THE [facility] Last Admin: 01/02/18 08:59 Dose: 20 mg Heparin Sodium (Porcine) (Heparin) 5,000 units SC Q12 [facility] Last Admin: 01/02/18 09:00 Dose: 5,000 units Azithromycin 500 mg/ Sodium (Chloride) 250 mls @ 250 mls/hr IVPB DAILY [facility] PRN Reason: Protocol Last Admin: 01/02/18 09:30 Dose: 250 mls/hr Peritoneal Dialysis Solution (Dianeal Pd-2 Soln 2.5%) 2,000 mls @ 0 mls/hr IP Q8 [facility] PRN Reason: Per Protocol Last Admin: 01/02/18 14:00 Dose: 9,999 mls/hr Piperacillin Sod/Tazobactam Sod (Zosyn 2.25 Gm Iv Premix) 2.25 gm in 50 mls @ 100 mls/hr IVPB Q8H [facility] PRN Reason: Protocol Last Admin: 01/02/18 17:00 Dose: 100 mls/hr Losartan Potassium (Cozaar) 50 mg PO BID COUNTS INCLUDE 234 BEDS AT THE [facility] Last Admin: 01/02/18 17:38 Dose: 50 mg Potassium Chloride (Klor-Con 10) 20 meq PO BRK COUNTS INCLUDE 234 BEDS AT THE [facility] Last Admin: 01/02/18 08:59 Dose: 20 meq Promethazine HCl/Codeine (Phenergan/Codeine Oral Syrup) 5 ml PO Q4 PRN PRN Reason: Cough Last Admin: 01/02/18 09:00 Dose: 5 ml - Labs Labs: 01/02/18 06:21 01/02/18 06:17 - Constitutional Appears: No Acute Distress - Head Exam Head Exam: NORMOCEPHALIC - Eye Exam Eye Exam: Normal appearance - ENT Exam ENT Exam: Normal Exam - Neck Exam Neck Exam: Normal Inspection - Respiratory Exam Respiratory Exam: Rales, Rhonchi, NORMAL BREATHING PATTERN - Cardiovascular Exam Cardiovascular Exam: REGULAR RHYTHM, +S1, +S2 - GI/Abdominal Exam GI & Abdominal Exam: Soft, Normal Bowel Sounds - Extremities Exam Extremities Exam: Normal Inspection - Neurological Exam Neurological Exam: Alert, Awake, Oriented x3 - Skin Skin Exam: Normal Color Assessment and Plan (1) Pneumonia Assessment & Plan: continue antibiotics, sputum c/s- no report yet, blood c/s- no growth Status: Acute (2) ESRD (end stage renal disease) on dialysis Status: Chronic (3) Hyponatremia Assessment & Plan: improving Status: Acute (4) Hypertension Assessment & Plan: continue current anthypertensives Status: Chronic
--- NOTE | 2018-01-02 21:43 | CP.PCM.PN ---
Subjective - Date & Time of Evaluation Date of Evaluation: 01/02/18 Time of Evaluation: 18:55 - Subjective Subjective: patient seen and examined complaining of slight cough Afebrile Breathing better No chest pain on peritoneal dialysis Objective - Vital Signs/Intake and Output Vital Signs (last 24 hours): Temp Pulse Resp BP Pulse Ox 98.3 F 122 H 27 H 138/80 99 01/02/18 16:00 01/02/18 17:00 01/02/18 16:00 01/02/18 16:00 01/02/18 17:00 Intake and Output: 01/02/18 01/03/18 18:59 06:59 Intake Total 800 Output Total 950 Balance -150 - Medications Medications: Current Medications Acetylcysteine (Acetylcysteine 20%) 4 ml INH RQ6 [facility] Last Admin: 01/02/18 19:46 Dose: 4 ml Albuterol/Ipratropium (Duoneb 3 Mg/0.5 Mg (3 Ml) Ud) 3 ml INH RQ6 [facility] Last Admin: 01/02/18 19:46 Dose: 3 ml Amlodipine Besylate (Norvasc) 5 mg PO DAILY [facility] Last Admin: 01/02/18 09:00 Dose: 5 mg Cinacalcet (Sensipar) 30 mg PO DAILY [facility] Last Admin: 01/02/18 09:00 Dose: 30 mg Famotidine (Pepcid) 20 mg PO DAILY [facility] Last Admin: 01/02/18 08:59 Dose: 20 mg Heparin Sodium (Porcine) (Heparin) 5,000 units SC Q12 [facility] Last Admin: 01/02/18 21:37 Dose: 5,000 units Azithromycin 500 mg/ Sodium (Chloride) 250 mls @ 250 mls/hr IVPB DAILY [facility] PRN Reason: Protocol Last Admin: 01/02/18 09:30 Dose: 250 mls/hr Peritoneal Dialysis Solution (Dianeal Pd-2 Soln 2.5%) 2,000 mls @ 0 mls/hr IP Q8 [facility] PRN Reason: Per Protocol Last Admin: 01/02/18 14:00 Dose: 9,999 mls/hr Piperacillin Sod/Tazobactam Sod (Zosyn 2.25 Gm Iv Premix) 2.25 gm in 50 mls @ 100 mls/hr IVPB Q8H [facility] PRN Reason: Protocol Last Admin: 01/02/18 17:00 Dose: 100 mls/hr Losartan Potassium (Cozaar) 50 mg PO BID [facility] Last Admin: 01/02/18 17:38 Dose: 50 mg Potassium Chloride (Klor-Con 10) 20 meq PO BRK [facility] Last Admin: 01/02/18 08:59 Dose: 20 meq Promethazine HCl/Codeine (Phenergan/Codeine Oral Syrup) 5 ml PO Q4 PRN PRN Reason: Cough Last Admin: 01/02/18 21:37 Dose: 5 ml - Labs Labs: 01/02/18 06:21 01/02/18 06:17 - Head Exam Head Exam: ATRAUMATIC, NORMOCEPHALIC - ENT Exam ENT Exam: Mucous Membranes Moist - Respiratory Exam Respiratory Exam: Rales, Rhonchi - Cardiovascular Exam Cardiovascular Exam: REGULAR RHYTHM - GI/Abdominal Exam GI & Abdominal Exam: Soft, Normal Bowel Sounds Assessment and Plan (1) Pneumonia Assessment & Plan: continue IV antibiotics Chest x-ray noted with congestive changes Discontinue Mucomyst Antitussive as needed Status: Acute (2) ESRD (end stage renal disease) on dialysis Status: Chronic
[2018-01-03] MEDS: Piperacill/Tazo 2.25gm in Dex 2.25 GM/50 ML BAG IVPB SCH ×3 (02:00→18:31)
[2018-01-03] MEDS: Acetylcysteine 20% Inhal Soln (4ml) INH SCH ×4 (02:33→20:02)
[2018-01-03] MEDS: Albuterol-Ipratrop 3 mg / 0.5 (3 ml) UD INH SCH ×4 (02:34→20:02)
--- NOTE | 2018-01-03 03:47 | PN ---
Copied To: Junior Deluca MD Attending MD: Junior Deluca MD DATE: 01/02/2018 LOCATION: ICU, room 14, bed A. REQUESTED BY: Patite Locke MD REASON FOR FOLLOWUP: Endstage renal disease, on peritoneal dialysis and left lung pneumonia. SUBJECTIVE: Mrs. 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 Patient is feeling much better now. Patient is on Zithromax and Zosyn. Patient denies any chest pain or palpitation. Denies any fever, but still complains of cough, less in severity since admission. No nausea. No vomiting or diarrhea. PHYSICAL EXAMINATION: VITAL SIGNS: As follows: Blood pressure this morning 130/80, pulse 95, respirations about 24, temperature 98.3, and saturation 98%. Height 5 feet 3 inches, weight is 135 pounds. GENERAL: Mrs. Jara is a 67-year-old elderly [place] female, moderate built, moderate nourished, not in distress. HEENT: Pupils are normal and reactive to light and accommodation. Conjunctivae pink. Sclerae anicteric. Tongue is moist. Trachea is midline. LUNGS: Symmetric on both sides. Bilateral breath sounds present. Left basal crackles present. CVS: [place] at the fifth intercostal space, midclavicular line. S1, S2 audible. No murmur or gallop. ABDOMEN: Normal in appearance, soft, and tympanitic. No guarding. No rigidity. No splenomegaly. 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 Nonfocal neuro examination. Cranial nerves II-XII grossly intact. Sensory and motor system is within normal limits. EXTREMITIES: No cyanosis. No clubbing. No edema. CURRENT MEDICATIONS: Include as follows: Mucomyst inhaler every 6 hours, azithromycin 500 mg daily, Cozaar 50 mg p.o. b.i.d., DuoNeb inhaler, subcu heparin 5000 every 12 hours, Klor-Con 20 mEq p.o. with breakfast, Norvasc 5 mg p.o. daily, Pepcid 20 mg p.o. daily, Phenergan DM syrup, and also Zosyn 2.25 g IV every 8 hours. LABORATORY DATA: Include as follows as of 01/02/2018; WBC 15.1, hemoglobin 10.5, hematocrit is 30.8, platelets 350, neutrophils 81, bands 5, lymphs 7, monos 4, and eosinophils 3. Sodium 128, potassium 3, chloride 93, CO2 of 23, BUN 35, creatinine 5.3, glucose 89, calcium 8.3, total bili 0.5, AST 21, ALT 16, alkaline phos of 167, total protein 5.3, and albumin is 2.3. In summary, Mrs. Jara is a 67-year-old elderly [place] female with a history of history of hypertension, end-stage renal disease with cough, shortness of breath, low sodium, low potassium, bandemia, and left lower lobe lung pneumonia on intravenous antibiotics. 1. End-stage renal disease. Continue peritoneal dialysis manual exchanges every 8 hours with 2 L of solution. Continue current management. 2. Pneumonia. 3. Hoarseness of voice, most likely secondary to laryngitis, most likely will bacteria. Cannot rule out viral infection. 4. Hypertension. Continue losartan 50 mg p.o. b.i.d. 5. Hyponatremia secondary to most likely decreased sodium intake p.o. and also on hydrochlorothiazide at home. Avoid hydrochlorothiazide. The patient had a similar condition hyponatremia in the prior admission also, most likely secondary to thiazide induced hyponatremia. Increase p.o. intake and dietary supplement, Nepro 1 can p.o. b.i.d. and also we will supplement, K-Dur 40 mEq p.o. x1 dose at 1 p.m. Repeat BMP and magnesium level in a.m. We will follow with you. Thank you for allowing me to participate in your patient's care. Continue IV antibiotics as per Dr. Locke. Junior Deluca MD [facility] # [id number]
[2018-01-03] MEDS: [UNRECOGNIZED DRUG - OTHER] IP SCH ×3 (06:00→21:58)
[2018-01-03 06:57] LABS: ALB/GLOB RATIO 0.9 (1.0-2.1); ALBUMIN 2.6 g/dL (3.5-5.0)
[2018-01-03 07:04] LABS: BASO # 0.1 K/uL (0.0-0.2); BASO % 0.6 % (0.0-2.0); EOS # 0.5 K/uL (0.0-0.7); EOS % 3.9 % (0.0-4.0); HEMOGLOBIN 10.6 g/dL (11.0-16.0); LYMPH # 1.1 K/uL (1.0-4.3); LYMPH % 9.1 % (20.0-40.0); MEAN CELL VOLUME 89.5 fL (81.0-99.0); MEAN CORPUSCULAR HEMOGLOBIN 30.3 pg (27.0-31.0); MEAN CORPUSCULAR HGB CONC 33.8 g/dL (33.0-37.0); MEAN PLATELET VOLUME 7.7 fL (7.2-11.7); MONO # 0.9 K/uL (0.0-0.8); MONO % 7.4 % (0.0-10.0); NEUT # 9.4 K/uL (1.8-7.0); NRBC % 0.1 % (0.0-2.0); PLATELET COUNT 371 K/uL (130-400); RED CELL DISTRIBUTION WIDTH 14.2 % (11.5-14.5); WHITE BLOOD COUNT 11.9 K/uL (4.8-10.8)
[2018-01-03 08:42] LABS: BANDS 5 % (0-2); EOSINOPHIL 2 % (0-4); LYMPHOCYTE 8 % (20-40); MONOCYTE 6 % (0-10); NEUTROPHIL 79 % (50-75); PLATELET ESTIMATE NORMAL (NORMAL); TOTAL CELLS COUNTED 100
[2018-01-03 08:43] LABS: ANISOCYTOSIS SLIGHT
[2018-01-03 08:44] LABS: HYPOCHROMIC SLIGHT; POLYCHROMIC SLIGHT; TOXIC GRANULATION PRESENT
--- NOTE | 2018-01-03 09:29 | RAD ---
Date of service: 01/02/2018 PROCEDURE: CHEST RADIOGRAPH, 1 VIEW HISTORY: PNA COMPARISON: Comparison is made with 12/31/2017 FINDINGS: LUNGS: Heterogeneous opacities at the lower portion of the lungs noted bilaterally slightly improved compared to the previous exam. PLEURA: Blunting of the right costophrenic angle is again noted. CARDIOVASCULAR: Normal. OSSEOUS STRUCTURES: No significant abnormalities. VISUALIZED UPPER ABDOMEN: Normal. OTHER FINDINGS: None. IMPRESSION: Interval mild improvement in the lower lobe lobes opacities since the previous study.
[2018-01-03] MEDS: Promethazine/Cod 6.25mg-10mg/5ml Syr UD PO PRN ×2 (09:30→21:38)
[2018-01-03] MEDS: Potassium Chloride 10 mEq ER Tab PO SCH (09:31)
[2018-01-03] MEDS: Azithromycin 500 MG in Sodium Chloride 0.9% 250 ML IVPB SCH (09:32)
--- NOTE | 2018-01-03 18:14 | CP.PCM.PN ---
Subjective - Date & Time of Evaluation Date of Evaluation: 01/03/18 Time of Evaluation: 18:13 - Subjective Subjective: pt is feeling better, pt is seen and examined, follow up consult is dictated # [id number] will add lopressor 25 mg po daily , first dose now Objective - Vital Signs/Intake and Output Vital Signs (last 24 hours): Temp Pulse Resp BP Pulse Ox 98.0 F 111 H 25 H 150/80 98 01/03/18 16:00 01/03/18 16:00 01/03/18 16:00 01/03/18 06:00 01/03/18 15:00 Intake and Output: 01/03/18 01/03/18 06:59 18:59 Intake Total 4290 Output Total 4000 Balance 290 - Medications Medications: Current Medications Acetylcysteine (Acetylcysteine 20%) 4 ml INH RQ6 [facility] Last Admin: 01/03/18 13:51 Dose: 4 ml Albuterol/Ipratropium (Duoneb 3 Mg/0.5 Mg (3 Ml) Ud) 3 ml INH RQ6 [facility] Last Admin: 01/03/18 13:51 Dose: 3 ml Amlodipine Besylate (Norvasc) 5 mg PO DAILY [facility] Last Admin: 01/03/18 09:31 Dose: 5 mg Cinacalcet (Sensipar) 30 mg PO DAILY [facility] Last Admin: 01/03/18 09:31 Dose: 30 mg Famotidine (Pepcid) 20 mg PO DAILY [facility] Last Admin: 01/03/18 09:31 Dose: 20 mg Heparin Sodium (Porcine) (Heparin) 5,000 units SC Q12 [facility] Last Admin: 01/03/18 09:30 Dose: 5,000 units Azithromycin 500 mg/ Sodium (Chloride) 250 mls @ 250 mls/hr IVPB DAILY [facility] PRN Reason: Protocol Last Admin: 01/03/18 09:32 Dose: 250 mls/hr Peritoneal Dialysis Solution (Dianeal Pd-2 Soln 2.5%) 2,000 mls @ 0 mls/hr IP Q8 [facility] PRN Reason: Per Protocol Last Admin: 01/03/18 06:00 Dose: 9,999 mls/hr Piperacillin Sod/Tazobactam Sod (Zosyn 2.25 Gm Iv Premix) 2.25 gm in 50 mls @ 100 mls/hr IVPB Q8H [facility] PRN Reason: Protocol Last Admin: 01/02/18 17:00 Dose: 100 mls/hr Losartan Potassium (Cozaar) 50 mg PO BID [facility] Last Admin: 01/03/18 09:31 Dose: 50 mg Metoprolol Tartrate (Lopressor) 25 mg PO DAILY [facility] Potassium Chloride (Klor-Con 10) 20 meq PO BRK [facility] Last Admin: 01/03/18 09:31 Dose: 20 meq Promethazine HCl/Codeine (Phenergan/Codeine Oral Syrup) 5 ml PO Q4 PRN PRN Reason: Cough Last Admin: 01/03/18 09:30 Dose: 5 ml - Labs Labs: 01/03/18 06:26 01/03/18 06:26
--- NOTE | 2018-01-04 00:06 | PN ---
Copied To: Junior Deluca MD Attending MD: Junior Deluca MD DATE: 01/03/2018 FOLLOWUP RENAL CONSULTATION LOCATION: The patient is located in ICU 14A. REQUESTED BY: Pattie Locke MD REASON FOR FOLLOWUP: End-stage renal disease, peritoneal dialysis, and left lung pneumonia. SUBJECTIVE: Mrs. Cade is a 67-year-old elderly [place] female, very pleasant with the past medical history significant for hypertension, end-stage renal disease, on peritoneal dialysis who was admitted with the chief complaints of cough, shortness of breath, and fever. The patient was found to have a left lung pneumonia. The patient is on IV antibiotics. The patient is feeling much better now, but the patient is tachycardic today. Heart rate is about 110 to 130. Improving cough and hoarseness of voice. PHYSICAL EXAMINATION: VITAL SIGNS: As follows: Blood pressure this morning 150/80, pulse about 95, respirations 20, temperature 98.3, and heart rate now is about 120 to 130 and regular. Height 5 feet 3 inches, weight is 133 pounds. GENERAL: Mrs. Cade is a 67-year-old elderly [place] female, moderately built, moderately nourished, not in distress. HEENT: Pupils normal and reactive to light and accommodation. Conjunctivae pink. Sclerae anicteric. Tongue is moist. Trachea is midline. LUNGS: Symmetric on both sides. Bilateral breath sounds present. Occasional left basal crackles present. CVS: [place] at the fifth intercostal space, midclavicular line. S1, S2 audible. Tachycardic, regular. ABDOMEN: Normal in appearance, soft, tympanic. No guarding. No rigidity. No hepatosplenomegaly. 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 Nonfocal neuro examination. Cranial nerves II through XII grossly intact. Sensory and motor system are within normal limits. EXTREMITIES: No cyanosis, no clubbing, no edema. MEDICATIONS: Her current medications include as follows: Acetylcysteine 4 mL every 6 hours, azithromycin 500 mg IV piggyback daily, losartan 50 mg p.o. twice daily, DuoNeb inhaler 3 mL every 6 hours as needed, subcutaneous heparin 5000 every 12 hours, Klor-Con 20 mEq p.o. with breakfast, Lopressor 25 mg p.o. daily, Norvasc 5 mg daily, Phenergan with Codeine syrup 5 mL every 4 hours as needed, Sensipar 30 mg p.o. daily, and Zosyn 2.25 g IV every 8 hours. LABORATORY DATA: Includes as follows: As of 01/03/2018, WBC 11.9, hemoglobin 10.6, hematocrit is 31.3, platelets 371. Sodium 128, potassium 3.8, chloride 91, CO2 of 25, BUN 35, creatinine 0.1, glucose 83, calcium 9, total bilirubin 0.6, AST 23, ALT 12, alkaline phosphatase 150, total protein 5.1, albumin is 2.5. Chest x-ray as of 01/02/2018 is slightly improving infiltrates. ASSESSMENT AND PLAN: In summary, Mrs. Cade is a 67-year-old elderly female with history of hypertension, end-stage renal disease, on peritoneal dialysis with left lung pneumonia and low sodium. 1. End-stage renal disease. Continue peritoneal dialysis with two liters of dialysis solution at 2.5% every 8 hours. The patient is now draining well. Fluid is clear. No clots and no fibrin. Negative, about 300 mL. 2. Hypertension. If it persists, we will continue Norvasc and Cozaar. Tachycardia secondary to medications, DuoNeb inhaler. We will add Lopressor 25 mg p.o. daily and if the patient continued to be tachycardic, we will discontinue DuoNeb inhaler, and we will change the Mucomyst to about 2 tablets b.i.d. 3. Pneumonia. Continue antibiotics, azithromycin and Zosyn. Continue Sensipar. I will follow with you. Thank you for allowing me to participate in your patient's care. Junior Deluca MD
[2018-01-04] MEDS: Piperacill/Tazo 2.25gm in Dex 2.25 GM/50 ML BAG IVPB SCH ×2 (01:32→09:34)
[2018-01-04] MEDS: Promethazine/Cod 6.25mg-10mg/5ml Syr UD PO PRN ×2 (01:33→21:19)
[2018-01-04] MEDS: Acetylcysteine 20% Inhal Soln (4ml) INH SCH ×4 (02:18→20:16)
[2018-01-04] MEDS: Albuterol-Ipratrop 3 mg / 0.5 (3 ml) UD INH SCH ×4 (02:19→20:16)
[2018-01-04] MEDS: [UNRECOGNIZED DRUG - OTHER] IP SCH ×3 (06:09→21:51)
[2018-01-04] MEDS: Potassium Chloride 10 mEq ER Tab PO SCH (09:29)
[2018-01-04] MEDS: Azithromycin 500 MG in Sodium Chloride 0.9% 250 ML IVPB SCH (09:37)
--- NOTE | 2018-01-04 13:13 | CP.PCM.PN ---
Subjective - Date & Time of Evaluation Date of Evaluation: 01/04/18 Time of Evaluation: 13:00 - Subjective Subjective: Patient comfortable but c/o hoarseness of voice cough seems to be improving sputum c/s grew staph aureus Will add Cipro po Objective - Vital Signs/Intake and Output Vital Signs (last 24 hours): Temp Pulse Resp BP Pulse Ox 98.3 F 76 21 141/99 H 100 01/04/18 06:00 01/04/18 06:00 01/04/18 06:00 01/04/18 09:30 01/04/18 04:00 Intake and Output: 01/04/18 01/04/18 06:59 18:59 Intake Total 4290 Output Total 4000 Balance 290 - Medications Medications: Current Medications Acetylcysteine (Acetylcysteine 20%) 4 ml INH RQ6 [facility] Last Admin: 01/04/18 08:10 Dose: 4 ml Albuterol/Ipratropium (Duoneb 3 Mg/0.5 Mg (3 Ml) Ud) 3 ml INH RQ6 [facility] Last Admin: 01/04/18 08:10 Dose: 3 ml Amlodipine Besylate (Norvasc) 5 mg PO DAILY [facility] Last Admin: 01/04/18 09:30 Dose: 5 mg Cinacalcet (Sensipar) 30 mg PO DAILY [facility] Last Admin: 01/04/18 09:29 Dose: 30 mg Famotidine (Pepcid) 20 mg PO DAILY [facility] Last Admin: 01/04/18 09:29 Dose: 20 mg Heparin Sodium (Porcine) (Heparin) 5,000 units SC Q12 [facility] Last Admin: 01/04/18 09:29 Dose: 5,000 units Peritoneal Dialysis Solution (Dianeal Pd-2 Soln 2.5%) 2,000 mls @ 0 mls/hr IP Q8 [facility] PRN Reason: Per Protocol Last Admin: 01/04/18 06:09 Dose: 9,999 mls/hr Piperacillin Sod/Tazobactam Sod (Zosyn 2.25 Gm Iv Premix) 2.25 gm in 50 mls @ 100 mls/hr IVPB Q8H [facility] PRN Reason: Protocol Last Admin: 01/04/18 09:34 Dose: 100 mls/hr Losartan Potassium (Cozaar) 50 mg PO BID [facility] Last Admin: 01/04/18 09:30 Dose: 50 mg Metoprolol Tartrate (Lopressor) 25 mg PO DAILY [facility] Last Admin: 01/04/18 09:30 Dose: 25 mg Potassium Chloride (Klor-Con 10) 20 meq PO BRK [facility] Last Admin: 01/04/18 09:29 Dose: 20 meq Promethazine HCl/Codeine (Phenergan/Codeine Oral Syrup) 5 ml PO Q4 PRN PRN Reason: Cough Last Admin: 01/04/18 01:33 Dose: 5 ml - Labs Labs: 01/03/18 06:26 01/03/18 06:26 - Constitutional Appears: No Acute Distress - Head Exam Head Exam: NORMAL INSPECTION - Neck Exam Neck Exam: Normal Inspection - Respiratory Exam Respiratory Exam: Clear to Ausculation Bilateral, NORMAL BREATHING PATTERN - Cardiovascular Exam Cardiovascular Exam: REGULAR RHYTHM, +S1, +S2 - GI/Abdominal Exam GI & Abdominal Exam: Soft, Normal Bowel Sounds - Extremities Exam Extremities Exam: Normal Inspection Assessment and Plan (1) Pneumonia Assessment & Plan: Patient claims to feel better. Cough improving sputum c/s- staph aureus. D/C Azithromycin. Started on po Cipro today. repeat CXR Status: Acute (2) ESRD (end stage renal disease) on dialysis Assessment & Plan: on peritoneal dialysis Status: Chronic (3) Hyponatremia Assessment & Plan: improving Status: Acute (4) Hypertension Assessment & Plan: occasional fluctuations noted but BP is relatively controlled on current meds. Status: Chronic
--- NOTE | 2018-01-04 14:16 | CP.PCM.PN ---
Subjective - Date & Time of Evaluation Date of Evaluation: 01/04/18 Time of Evaluation: 08:30 - Subjective Subjective: Patient seen and examined cough improving Afebrile no chest pain Being treated for pneumonia On peritoneal dialysis Objective - Vital Signs/Intake and Output Vital Signs (last 24 hours): Temp Pulse Resp BP Pulse Ox 98.2 F 113 H 21 141/99 H 70 L 01/04/18 08:00 01/04/18 12:00 01/04/18 12:00 01/04/18 09:30 01/04/18 12:00 Intake and Output: 01/04/18 01/04/18 06:59 18:59 Intake Total 4290 Output Total 4000 Balance 290 - Medications Medications: Current Medications Acetylcysteine (Acetylcysteine 20%) 4 ml INH RQ6 [facility] Last Admin: 01/04/18 08:10 Dose: 4 ml Albuterol/Ipratropium (Duoneb 3 Mg/0.5 Mg (3 Ml) Ud) 3 ml INH RQ6 [facility] Last Admin: 01/04/18 08:10 Dose: 3 ml Amlodipine Besylate (Norvasc) 5 mg PO DAILY [facility] Last Admin: 01/04/18 09:30 Dose: 5 mg Cinacalcet (Sensipar) 30 mg PO DAILY [facility] Last Admin: 01/04/18 09:29 Dose: 30 mg Ciprofloxacin (Cipro) 500 mg PO Q8H [facility] PRN Reason: Protocol Famotidine (Pepcid) 20 mg PO DAILY [facility] Last Admin: 01/04/18 09:29 Dose: 20 mg Heparin Sodium (Porcine) (Heparin) 5,000 units SC Q12 [facility] Last Admin: 01/04/18 09:29 Dose: 5,000 units Peritoneal Dialysis Solution (Dianeal Pd-2 Soln 2.5%) 2,000 mls @ 0 mls/hr IP Q8 [facility] PRN Reason: Per Protocol Last Admin: 01/04/18 06:09 Dose: 9,999 mls/hr Piperacillin Sod/Tazobactam Sod (Zosyn 2.25 Gm Iv Premix) 2.25 gm in 50 mls @ 100 mls/hr IVPB Q8H [facility] PRN Reason: Protocol Last Admin: 01/04/18 09:34 Dose: 100 mls/hr Losartan Potassium (Cozaar) 50 mg PO BID [facility] Last Admin: 01/04/18 09:30 Dose: 50 mg Metoprolol Tartrate (Lopressor) 25 mg PO DAILY [facility] Last Admin: 01/04/18 09:30 Dose: 25 mg Potassium Chloride (Klor-Con 10) 20 meq PO BRK [facility] Last Admin: 01/04/18 09:29 Dose: 20 meq Promethazine HCl/Codeine (Phenergan/Codeine Oral Syrup) 5 ml PO Q4 PRN PRN Reason: Cough Last Admin: 01/04/18 01:33 Dose: 5 ml - Labs Labs: 01/03/18 06:26 01/03/18 06:26 - Head Exam Head Exam: ATRAUMATIC, NORMOCEPHALIC - Eye Exam Eye Exam: Normal appearance - ENT Exam ENT Exam: Mucous Membranes Moist - Neck Exam Neck Exam: Normal Inspection - Respiratory Exam Respiratory Exam: R[place] - Cardiovascular Exam Cardiovascular Exam: REGULAR RHYTHM - GI/Abdominal Exam GI & Abdominal Exam: Soft, Normal Bowel Sounds Assessment and Plan (1) Pneumonia Assessment & Plan: continue antibiotics Followup chest x-ray Continue antitussive dialysis Pending transfer to the [facility] Status: Acute (2) ESRD (end stage renal disease) on dialysis Status: Chronic
--- NOTE | 2018-01-04 19:17 | CP.PCM.PN ---
Subjective - Date & Time of Evaluation Date of Evaluation: 01/04/18 Time of Evaluation: 19:16 - Subjective Subjective: pt is seen and examined, follow up consult is dictated #[id number] will change cipro dose from 500 mg q 8 hrs to 250 mg po bid check cbc, bmp in am Objective - Vital Signs/Intake and Output Vital Signs (last 24 hours): Temp Pulse Resp BP Pulse Ox 98.0 F 78 18 155/83 H 100 01/04/18 16:00 01/04/18 16:00 01/04/18 16:00 01/04/18 16:00 01/04/18 16:00 Intake and Output: 01/04/18 01/05/18 18:59 06:59 Intake Total 200 Balance 200 - Medications Medications: Current Medications Acetylcysteine (Acetylcysteine 20%) 4 ml INH RQ6 [facility] Last Admin: 01/04/18 14:45 Dose: 4 ml Albuterol/Ipratropium (Duoneb 3 Mg/0.5 Mg (3 Ml) Ud) 3 ml INH RQ6 [facility] Last Admin: 01/04/18 14:45 Dose: 3 ml Amlodipine Besylate (Norvasc) 5 mg PO DAILY [facility] Last Admin: 01/04/18 09:30 Dose: 5 mg Cinacalcet (Sensipar) 30 mg PO DAILY [facility] Last Admin: 01/04/18 09:29 Dose: 30 mg Ciprofloxacin (Cipro) 500 mg PO Q8H [facility] PRN Reason: Protocol Last Admin: 01/04/18 14:24 Dose: 500 mg Famotidine (Pepcid) 20 mg PO DAILY [facility] Last Admin: 01/04/18 09:29 Dose: 20 mg Heparin Sodium (Porcine) (Heparin) 5,000 units SC Q12 [facility] Last Admin: 01/04/18 09:29 Dose: 5,000 units Peritoneal Dialysis Solution (Dianeal Pd-2 Soln 2.5%) 2,000 mls @ 0 mls/hr IP Q8 [facility] PRN Reason: Per Protocol Last Admin: 01/04/18 14:00 Dose: 2,000 mls/hr Losartan Potassium (Cozaar) 50 mg PO BID [facility] Last Admin: 01/04/18 17:22 Dose: 50 mg Metoprolol Tartrate (Lopressor) 25 mg PO DAILY [facility] Last Admin: 01/04/18 09:30 Dose: 25 mg Potassium Chloride (Klor-Con 10) 20 meq PO BRK [facility] Last Admin: 01/04/18 09:29 Dose: 20 meq Promethazine HCl/Codeine (Phenergan/Codeine Oral Syrup) 5 ml PO Q4 PRN PRN Reason: Cough Last Admin: 01/04/18 01:33 Dose: 5 ml - Labs Labs: 01/03/18 06:26 01/03/18 06:26
[2018-01-05] MEDS: Acetylcysteine 20% Inhal Soln (4ml) INH SCH ×4 (01:16→20:42)
[2018-01-05] MEDS: Albuterol-Ipratrop 3 mg / 0.5 (3 ml) UD INH SCH ×4 (01:16→20:42)
[2018-01-05] MEDS: Promethazine/Cod 6.25mg-10mg/5ml Syr UD PO PRN (02:32)
[2018-01-05] MEDS: [UNRECOGNIZED DRUG - OTHER] IP SCH ×3 (06:00→22:00)
[2018-01-05 06:33] LABS: BASO # 0.1 K/uL (0.0-0.2); BASO % 0.5 % (0.0-2.0); EOS # 0.7 K/uL (0.0-0.7); HEMOGLOBIN 10.8 g/dL (11.0-16.0); LYMPH # 1.1 K/uL (1.0-4.3); LYMPH % 8.8 % (20.0-40.0); MEAN CELL VOLUME 91.1 fL (81.0-99.0); MEAN CORPUSCULAR HEMOGLOBIN 30.9 pg (27.0-31.0); MEAN CORPUSCULAR HGB CONC 33.9 g/dL (33.0-37.0); MEAN PLATELET VOLUME 7.1 fL (7.2-11.7); MONO # 0.7 K/uL (0.0-0.8); MONO % 5.2 % (0.0-10.0); NEUT # 10.5 K/uL (1.8-7.0); NEUT % 80.5 % (50.0-75.0); NRBC % 0.1 % (0.0-2.0); PLATELET COUNT 436 K/uL (130-400); RBC 3.49 Mil/uL (3.80-5.20); RED CELL DISTRIBUTION WIDTH 14.3 % (11.5-14.5); WHITE BLOOD COUNT 13.1 K/uL (4.8-10.8)
[2018-01-05 06:51] LABS: ALB/GLOB RATIO 0.9 (1.0-2.1); ALBUMIN 2.7 g/dL (3.5-5.0); CALCIUM 9.3 mg/dl (8.6-10.4)
[2018-01-05] MEDS: Potassium Chloride 10 mEq ER Tab PO SCH (07:49)
--- NOTE | 2018-01-05 08:05 | PN ---
Copied To: Junior Deluca MD Attending MD: Junior Deluca MD DATE: 01/04/2018 FOLLOWUP RENAL CONSULTATION LOCATION: The patient is located in ICU 14, bed A. REQUESTED BY: Pattie Locke MD REASON FOR FOLLOWUP: End-stage renal disease, left lung pneumonia, for continuation of the PD. SUBJECTIVE: Mrs. Cade is a 67-year-old elderly very pleasant [place] female with a history of hypertension, end-stage renal disease, on peritoneal dialysis who was admitted with cough, shortness of breath, fever and found to have a left lung pneumonia, on IV antibiotics, Zithromax and Zosyn. The patient is feeling much better. No chest pain. No palpitation. No fever. Less cough. PHYSICAL EXAMINATION: VITAL SIGNS: This afternoon as follows: Blood pressure 145/85, pulse 102, respiration 18, temperature 98.1, saturation 98%. Height 5 feet 3 inches. Weight is 129 pounds. GENERAL: Mrs. Cade is a 67-year-old elderly female, moderately built, moderately nourished, not in distress. HEENT: Pupils are normal and reactive to light and accommodation. Conjunctivae pink. Sclerae anicteric. Tongue is moist. Trachea is midline. LUNGS: Symmetric on both sides. Bilateral breath sounds present. Clear to auscultation. CARDIOVASCULAR SYSTEM: [place] at the fifth intercostal space, midclavicular line. S1, S2 audible. No murmur or gallop. ABDOMEN: Normal in appearance, soft, tympanitic. No guarding. No rigidity. No hepatosplenomegaly. CENTRAL NERVOUS SYSTEM: The patient is alert, awake, oriented x3. Nonfocal neuro examination. Cranial nerves II-XII grossly intact. Sensory and motor system is within normal limits. EXTREMITIES: No cyanosis, no clubbing, no edema. CURRENT MEDICATIONS: Include as follows: Mucomyst inhaler every 6 hours, Cipro 500 mg p.o. every 8 hours, Cozaar 50 mg p.o. b.i.d., DuoNeb inhaler, subcu heparin 5000 units every 12 hours, Klor-Con 20 mEq p.o. with breakfast, Lopressor 25 mg p.o. daily, Norvasc 5 mg p.o. daily, Pepcid 20 mg daily, Phenergan with Codeine syrup 5 mL every 4 hours, Sensipar 30 mg p.o. daily. LABORATORY DATA: No new labs are available for today. ASSESSMENT AND PLAN: In summary, Mrs. Cade is a 67-year-old elderly [place] female with a history of hypertension; end-stage renal disease, on peritoneal dialysis; and pneumonia who was admitted with shortness of breath, cough and fever and high white blood cell count and high bandemia. 1. End-stage renal disease. Continue peritoneal dialysis daily with two liters of 2.5% dialysis solution every 8 hours. The patient has negative about 300 mL. 2. Hypertension. Blood pressure is stable. Continue with her current medications, losartan 100 mg daily, metoprolol 25 mg daily, and amlodipine 5 mg p.o. daily. 3. Left lung pneumonia. The patient is off Zithromax and Zosyn and started on Cipro 500 mg p.o. every 8 hours. 4. Renal failure. Cipro 500 mg every 8 hours is high dose. We will change it to 250 mg p.o. b.i.d. Repeat complete blood cell count and basic metabolic panel in the morning. We will follow with you. Thank you for allowing me to participate in your patient's care. Junior Deluca MD
[2018-01-05 08:22] LABS: BANDS 1 % (0-2); EOSINOPHIL 6 % (0-4); LYMPHOCYTE 10 % (20-40); MONOCYTE 5 % (0-10); NEUTROPHIL 78 % (50-75); PLATELET ESTIMATE NORMAL (NORMAL); TOTAL CELLS COUNTED 100
[2018-01-05 08:23] LABS: ANISOCYTOSIS SLIGHT; HYPOCHROMIC SLIGHT; POIKILOCYTOSIS SLIGHT
[2018-01-05 08:45] VITALS: RESP 20
--- NOTE | 2018-01-05 10:18 | CP.PCM.PN ---
Subjective - Date & Time of Evaluation Date of Evaluation: 01/05/18 Time of Evaluation: 10:17 - Subjective Subjective: pt is seen and examined, follow up consult is dictated #[id number] supplement kcl 20 meq pox1 at 12 noon d/c sensipar for low pth level Objective - Vital Signs/Intake and Output Vital Signs (last 24 hours): Temp Pulse Resp BP Pulse Ox 98.1 F 94 H 20 147/92 H 97 01/05/18 08:00 01/05/18 08:00 01/05/18 08:00 01/05/18 10:06 01/05/18 08:00 Intake and Output: 01/05/18 01/05/18 06:59 18:59 Intake Total 1999 Output Total 3902 Balance -1902 - Medications Medications: Current Medications Acetylcysteine (Acetylcysteine 20%) 4 ml INH RQ6 [facility] Last Admin: 01/05/18 08:05 Dose: 4 ml Albuterol/Ipratropium (Duoneb 3 Mg/0.5 Mg (3 Ml) Ud) 3 ml INH RQ6 [facility] Last Admin: 01/05/18 08:05 Dose: 3 ml Amlodipine Besylate (Norvasc) 5 mg PO DAILY [facility] Last Admin: 01/05/18 10:06 Dose: 5 mg Cinacalcet (Sensipar) 30 mg PO DAILY [facility] Last Admin: 01/05/18 10:06 Dose: 30 mg Ciprofloxacin (Cipro) 250 mg PO BID [facility] PRN Reason: Protocol Last Admin: 01/05/18 10:05 Dose: 250 mg Famotidine (Pepcid) 20 mg PO DAILY [facility] Last Admin: 01/05/18 10:06 Dose: 20 mg Heparin Sodium (Porcine) (Heparin) 5,000 units SC Q12 [facility] Last Admin: 01/05/18 10:05 Dose: 5,000 units Peritoneal Dialysis Solution (Dianeal Pd-2 Soln 2.5%) 2,000 mls @ 0 mls/hr IP Q8 [facility] PRN Reason: Per Protocol Last Admin: 01/05/18 06:00 Dose: 9,999 mls/hr Losartan Potassium (Cozaar) 50 mg PO BID [facility] Last Admin: 01/05/18 10:05 Dose: 50 mg Metoprolol Tartrate (Lopressor) 25 mg PO DAILY [facility] Last Admin: 01/05/18 10:06 Dose: 25 mg Potassium Chloride (Klor-Con 10) 20 meq PO BRK [facility] Last Admin: 01/05/18 07:49 Dose: 20 meq Potassium Chloride (Klor-Con 10) 20 meq PO ONCE ONE Stop: 01/05/18 12:01 Promethazine HCl/Codeine (Phenergan/Codeine Oral Syrup) 5 ml PO Q4 PRN PRN Reason: Cough Last Admin: 01/05/18 02:32 Dose: 5 ml - Labs Labs: 01/05/18 06:07 01/05/18 06:07
[2018-01-05] MEDS ORDERED: Potassium Chloride 20 mEq ER Tab PO ONE ×2 (10:30→12:00)
--- NOTE | 2018-01-05 11:53 | CP.PCM.PN ---
Subjective - Date & Time of Evaluation Date of Evaluation: 01/05/18 Time of Evaluation: 11:45 - Subjective Subjective: patient comfortable afebtrile, less cough on peritoneal dialysis labs noted Continue present Rx for transfer to telemetry floor physical therapy for possible discharge home tomorrow. Objective - Vital Signs/Intake and Output Vital Signs (last 24 hours): Temp Pulse Resp BP Pulse Ox 98.1 F 94 H 20 147/92 H 97 01/05/18 08:00 01/05/18 08:00 01/05/18 08:00 01/05/18 10:06 01/05/18 08:00 Intake and Output: 01/05/18 01/05/18 06:59 18:59 Intake Total 1999 Output Total 3902 Balance -1902 - Medications Medications: Current Medications Acetylcysteine (Acetylcysteine 20%) 4 ml INH RQ6 [facility] Last Admin: 01/05/18 08:05 Dose: 4 ml Albuterol/Ipratropium (Duoneb 3 Mg/0.5 Mg (3 Ml) Ud) 3 ml INH RQ6 [facility] Last Admin: 01/05/18 08:05 Dose: 3 ml Amlodipine Besylate (Norvasc) 5 mg PO DAILY [facility] Last Admin: 01/05/18 10:06 Dose: 5 mg Cinacalcet (Sensipar) 30 mg PO DAILY [facility] Last Admin: 01/05/18 10:06 Dose: 30 mg Ciprofloxacin (Cipro) 250 mg PO BID [facility] PRN Reason: Protocol Last Admin: 01/05/18 10:05 Dose: 250 mg Famotidine (Pepcid) 20 mg PO DAILY [facility] Last Admin: 01/05/18 10:06 Dose: 20 mg Heparin Sodium (Porcine) (Heparin) 5,000 units SC Q12 [facility] Last Admin: 01/05/18 10:05 Dose: 5,000 units Peritoneal Dialysis Solution (Dianeal Pd-2 Soln 2.5%) 2,000 mls @ 0 mls/hr IP Q8 [facility] PRN Reason: Per Protocol Last Admin: 01/05/18 06:00 Dose: 9,999 mls/hr Losartan Potassium (Cozaar) 50 mg PO BID [facility] Last Admin: 01/05/18 10:05 Dose: 50 mg Metoprolol Tartrate (Lopressor) 25 mg PO DAILY [facility] Last Admin: 01/05/18 10:06 Dose: 25 mg Potassium Chloride (Klor-Con 10) 20 meq PO BRK [facility] Last Admin: 01/05/18 07:49 Dose: 20 meq Potassium Chloride (K-Dur 20 Meq Er Tab) 20 meq PO 1200 ONE Stop: 01/05/18 12:01 Promethazine HCl/Codeine (Phenergan/Codeine Oral Syrup) 5 ml PO Q4 PRN PRN Reason: Cough Last Admin: 01/05/18 02:32 Dose: 5 ml - Labs Labs: 01/05/18 06:07 01/05/18 06:07 - Constitutional Appears: No Acute Distress - Head Exam Head Exam: NORMAL INSPECTION - Eye Exam Eye Exam: Normal appearance - ENT Exam ENT Exam: Normal Exam - Neck Exam Neck Exam: Normal Inspection - Respiratory Exam Respiratory Exam: Clear to Ausculation Bilateral, NORMAL BREATHING PATTERN - Cardiovascular Exam Cardiovascular Exam: REGULAR RHYTHM, +S1, +S2 - GI/Abdominal Exam GI & Abdominal Exam: Soft, Normal Bowel Sounds - Extremities Exam Extremities Exam: Normal Inspection - Neurological Exam Neurological Exam: Alert, Awake, Oriented x3 - Skin Skin Exam: Dry, Intact, Normal Color, Warm Assessment and Plan (1) Pneumonia Assessment & Plan: improving. Continue antibiotic Status: Acute (2) ESRD (end stage renal disease) on dialysis Assessment & Plan: on peritoneal dialysis Status: Chronic (3) Hyponatremia Assessment & Plan: improving. Na 128- patient asymptomatic Status: Acute (4) Hypertension Assessment & Plan: controlled on current meds Status: Chronic
--- NOTE | 2018-01-05 17:38 | CP.PCM.PN ---
Subjective - Date & Time of Evaluation Date of Evaluation: 01/05/18 Time of Evaluation: 10:00 - Subjective Subjective: patient seen and examined Cough much improved afebrile Patient being treated for pneumonia For transfer to telemetry Continue antibiotics Resolving infiltrate Objective - Vital Signs/Intake and Output Vital Signs (last 24 hours): Temp Pulse Resp BP Pulse Ox 97.8 F 91 H 20 156/85 H 98 01/05/18 16:13 01/05/18 16:13 01/05/18 16:13 01/05/18 16:13 01/05/18 16:13 Intake and Output: 01/05/18 01/05/18 06:59 18:59 Intake Total 2000 500 Output Total 3902 0 Balance -1902 500 - Medications Medications: Current Medications Acetylcysteine (Acetylcysteine 20%) 4 ml INH RQ6 [facility] Last Admin: 01/05/18 13:35 Dose: 4 ml Albuterol/Ipratropium (Duoneb 3 Mg/0.5 Mg (3 Ml) Ud) 3 ml INH RQ6 [facility] Last Admin: 01/05/18 13:35 Dose: 3 ml Amlodipine Besylate (Norvasc) 5 mg PO DAILY [facility] Last Admin: 01/05/18 10:06 Dose: 5 mg Cinacalcet (Sensipar) 30 mg PO DAILY [facility] Last Admin: 01/05/18 10:06 Dose: 30 mg Ciprofloxacin (Cipro) 250 mg PO BID [facility] PRN Reason: Protocol Last Admin: 01/05/18 17:28 Dose: 250 mg Famotidine (Pepcid) 20 mg PO DAILY [facility] Last Admin: 01/05/18 10:06 Dose: 20 mg Heparin Sodium (Porcine) (Heparin) 5,000 units SC Q12 [facility] Last Admin: 01/05/18 10:05 Dose: 5,000 units Peritoneal Dialysis Solution (Dianeal Pd-2 Soln 2.5%) 2,000 mls @ 0 mls/hr IP Q8 [facility] PRN Reason: Per Protocol Last Admin: 01/05/18 14:30 Dose: 2,000 mls/hr Losartan Potassium (Cozaar) 50 mg PO BID [facility] Last Admin: 01/05/18 17:28 Dose: 50 mg Metoprolol Tartrate (Lopressor) 25 mg PO DAILY [facility] Last Admin: 01/05/18 10:06 Dose: 25 mg Potassium Chloride (Klor-Con 10) 20 meq PO BRK [facility] Last Admin: 01/05/18 07:49 Dose: 20 meq Promethazine HCl/Codeine (Phenergan/Codeine Oral Syrup) 5 ml PO Q4 PRN PRN Reason: Cough Last Admin: 01/05/18 02:32 Dose: 5 ml - Labs Labs: 01/05/18 06:07 01/05/18 06:07 Assessment and Plan (1) Pneumonia Status: Acute (2) ESRD (end stage renal disease) on dialysis Status: Chronic
[2018-01-06] MEDS: Acetylcysteine 20% Inhal Soln (4ml) INH SCH ×3 (02:48→13:38)
[2018-01-06] MEDS: Albuterol-Ipratrop 3 mg / 0.5 (3 ml) UD INH SCH ×3 (02:48→13:38)
--- NOTE | 2018-01-06 05:00 | PN ---
Copied To: Junior Deluca MD Attending MD: Junior Deluca MD DATE: 01/05/2018 FOLLOWUP RENAL CONSULTATION LOCATION: The patient is located in ICU room 14, bed A. REQUESTED BY: Pattie Locke MD REASON FOR RENAL CONSULTATION: End-stage renal disease, on peritoneal dialysis and left lung pneumonia. SUBJECTIVE: Mrs. Cade is a 67-year-old elderly [place] female with a past medical history significant for longstanding hypertension; end-stage renal disease, on peritoneal dialysis for the last five years who was admitted with chief complaints of feeling weak, tired, cough, shortness of breath and fever and found to have left lung pneumonia. Initially started on IV antibiotics, Zithromax and Zosyn. Antibiotics were discontinued this morning and started on Cipro 250 mg p.o. b.i.d. The patient is not in distress, resting comfortably, still complains of some mild cough with expectoration whitish yellow phlegm. No chest pain. No palpitation. No fever. PHYSICAL EXAMINATION: VITAL SIGNS: As follows: Blood pressure 147/92, pulse 87, respiration 18, temperature 98.5, saturation 98%. Height 5 feet 3 inches. Weight is 129 pounds. GENERAL: Mrs. Cade is a 67-year-old elderly [place] female, moderately built, moderately nourished, not in acute distress. HEENT: Pupils are normal and reactive to light and accommodation. Conjunctivae pink. Sclerae anicteric. Tongue is moist and trachea is midline. LUNGS: Symmetric on both sides. Bilateral breath sounds present. No crackles. CARDIOVASCULAR SYSTEM: [place] at the fifth intercostal space, midclavicular line. S1, S2 audible. No murmur. No gallop. ABDOMEN: Normal in appearance. Soft, tympanitic. No guarding. No rigidity. No hepatosplenomegaly. CENTRAL NERVOUS SYSTEM: The patient is alert, awake, oriented x3. Nonfocal neuro examination. Cranial nerves II-XII grossly intact. Sensory and motor system is within normal limits. EXTREMITIES: No cyanosis, no clubbing, no edema. CURRENT MEDICATIONS: Include as follows: Acetylcysteine every 6 hours, Cipro 250 mg p.o. b.i.d., losartan 50 mg p.o. b.i.d., DuoNeb inhaler 3 mL every 6 hours, , subcu heparin 5000 units every 12 hours, Klor-Con 20 mEq p.o. x1 dose in the morning, Lopressor 25 mg p.o. daily, Norvasc 5 mg p.o. daily, Pepcid 20 mg p.o. daily, Phenergan with Codeine 5 mL p.o. every 4 hours p.r.n., Sensipar 30 mg p.o. daily. LABORATORY DATA: Include as follows as of 01/05/2018: WBC 13.1, hemoglobin 10.8, hematocrit is 31.9, platelets are 436. Neutrophils 78, bands 1, lymphs 10, monos 5, eosinophils 6. Sodium 128, potassium 3.4, chloride 91, CO2 of 29, BUN 28, creatinine 4.7, glucose 80, calcium 9.3. Total bili 0.3, AST 18, ALT 13, alkaline phosphatase 127, total protein 5.7, albumin 2.7. PTH intact level is 14. ASSESSMENT AND PLAN: In summary, Mrs. Cade is a 67-year-old elderly female with hypertension; end-stage renal disease, on peritoneal dialysis; left lung pneumonia. Off intravenous antibiotics and started on oral Cipro. 1. End-stage renal disease. Continue peritoneal dialysis with two liters of 2.5% dialysis solution every 8 hours. The patient is negative about 300 mL today. 2. Hypertension. Blood pressure is stable. Continue amlodipine. Continue losartan and Lopressor 25 mg daily. 3. Left lung pneumonia. Continue Cipro 250 mg p.o. b.i.d. Consider physical therapy evaluation and out of bed to chair. 4. Parathyroid hormone is low. We will stop Sensipar for the time being. Continue to monitor calcium levels. We will follow with you. Thank you for allowing me to participate in your patient's care. Junior Deluca MD
[2018-01-06] MEDS: [UNRECOGNIZED DRUG - OTHER] IP SCH ×2 (06:01→14:05)
[2018-01-06 08:01] VITALS: BP 133/78; TEMP 97.9; O2SAT 97
[2018-01-06 08:17] VITALS: PULSE 102
[2018-01-06 08:36] LABS: CALCIUM 9.6 mg/dl (8.6-10.4)
[2018-01-06] MEDS: Potassium Chloride 10 mEq ER Tab PO SCH (08:38)
--- NOTE | 2018-01-06 15:17 | CP.PCM.PN ---
Subjective - Date & Time of Evaluation Date of Evaluation: 01/06/18 Time of Evaluation: 10:30 - Subjective Subjective: patient seen and examined Lying comfortably in no acute distress No shortness of breath or cough Afebrile Objective - Vital Signs/Intake and Output Vital Signs (last 24 hours): Temp Pulse Resp BP Pulse Ox 97.9 F 102 H 20 133/78 97 01/06/18 07:00 01/06/18 07:00 01/06/18 07:00 01/06/18 09:38 01/06/18 07:00 - Medications Medications: Current Medications Acetylcysteine (Acetylcysteine 20%) 4 ml INH RQ6 [facility] Last Admin: 01/06/18 13:38 Dose: 4 ml Albuterol/Ipratropium (Duoneb 3 Mg/0.5 Mg (3 Ml) Ud) 3 ml INH RQ6 [facility] Last Admin: 01/06/18 13:38 Dose: 3 ml Amlodipine Besylate (Norvasc) 5 mg PO DAILY [facility] Last Admin: 01/06/18 09:37 Dose: 5 mg Ciprofloxacin (Cipro) 250 mg PO BID [facility] PRN Reason: Protocol Last Admin: 01/06/18 09:38 Dose: 250 mg Famotidine (Pepcid) 20 mg PO DAILY [facility] Last Admin: 01/06/18 09:37 Dose: 20 mg Heparin Sodium (Porcine) (Heparin) 5,000 units SC Q12 [facility] Last Admin: 01/06/18 09:38 Dose: 5,000 units Peritoneal Dialysis Solution (Dianeal Pd-2 Soln 2.5%) 2,000 mls @ 0 mls/hr IP Q8 [facility] PRN Reason: Per Protocol Last Admin: 01/06/18 14:05 Dose: 8,000 mls/hr Losartan Potassium (Cozaar) 50 mg PO BID [facility] Last Admin: 01/06/18 09:38 Dose: 50 mg Metoprolol Tartrate (Lopressor) 25 mg PO DAILY [facility] Last Admin: 01/06/18 09:38 Dose: 25 mg Potassium Chloride (Klor-Con 10) 20 meq PO BRK [facility] Last Admin: 01/06/18 08:38 Dose: 20 meq Promethazine HCl/Codeine (Phenergan/Codeine Oral Syrup) 5 ml PO Q4 PRN PRN Reason: Cough Last Admin: 01/05/18 02:32 Dose: 5 ml - Labs Labs: 01/05/18 06:07 01/06/18 08:17 - Head Exam Head Exam: ATRAUMATIC, NORMOCEPHALIC - Eye Exam Eye Exam: Normal appearance - ENT Exam ENT Exam: Mucous Membranes Moist - Neck Exam Neck Exam: Normal Inspection - Respiratory Exam Respiratory Exam: Clear to Ausculation Bilateral - Cardiovascular Exam Cardiovascular Exam: REGULAR RHYTHM - GI/Abdominal Exam GI & Abdominal Exam: Soft, Normal Bowel Sounds Assessment and Plan (1) Pneumonia Assessment & Plan: stable from pulmonary standpoint Clinically much improved Continue dialysis Status: Acute (2) ESRD (end stage renal disease) on dialysis Status: Chronic
--- NOTE | 2018-01-06 15:22 | CP.PCM.DIS ---
Provider - Provider Date of Admission: 12/31/17 01:19 Attending physician: Pattie Hudson MD Primary care physician: Cassandra Hudson Consults: Dr. Deluca, Dr. Moise Time Spent in preparation of Discharge (in minutes): 30 Diagnosis - Discharge Diagnosis (1) Pneumonia Status: Acute Comment: patient clinically much improved. Will continue Cipro for 5 days. (2) ESRD (end stage renal disease) on dialysis Status: Chronic Priority: High Comment: Continue peritoneal dialysis at home. (3) Hyponatremia Status: Resolved Priority: Medium Comment: Na- 130. much improved. Patient asymptomatic. (4) Hypertension Status: Chronic Priority: Medium Comment: continue same antihypertensives. Hospital Course - Lab Results Lab Results: Micro Results 12/31/17 00:12 Blood Blood Culture - Final NO GROWTH AFTER 5 DAYS 12/31/17 00:12 Blood Gram Stain - Final TEST NOT PERFORMED 12/31/17 00:12 Blood Blood Culture - Final NO GROWTH AFTER 5 DAYS 12/31/17 00:12 Blood Gram Stain - Final TEST NOT PERFORMED 01/01/18 20:49 Sputum Gram Stain - Final 01/01/18 20:49 Sputum Sputum Culture - Final Staphylococcus Aureus 12/31/17 11:38 [place] MRSA Culture (Admit) - Final MRSA NOT DETECTED Most Recent Lab Values WBC 13.1 K/uL (4.8-10.8) H 01/05/18 06:07 RBC 3.49 Mil/uL (3.80-5.20) L 01/05/18 06:07 Hgb 10.8 g/dL (11.0-16.0) L 01/05/18 06:07 Hct 31.9 % (34.0-47.0) L 01/05/18 06:07 MCV 91.1 fL (81.0-99.0) 01/05/18 06:07 MCH 30.9 pg (27.0-31.0) 01/05/18 06:07 MCHC 33.9 g/dL (33.0-37.0) 01/05/18 06:07 RDW 14.3 % (11.5-14.5) 01/05/18 06:07 Plt Count 436 K/uL (130-400) H 01/05/18 06:07 MPV 7.1 fL (7.2-11.7) L 01/05/18 06:07 Neut % (Auto) 80.5 % (50.0-75.0) H 01/05/18 06:07 Lymph % (Auto) 8.8 % (20.0-40.0) L 01/05/18 06:07 [place] % (Auto) 5.2 % (0.0-10.0) 01/05/18 06:07 Eos % (Auto) 5.0 % (0.0-4.0) H 01/05/18 06:07 Baso % (Auto) 0.5 % (0.0-2.0) 01/05/18 06:07 Neut # (Auto) 10.5 K/uL (1.8-7.0) H 01/05/18 06:07 Lymph # (Auto) 1.1 K/uL (1.0-4.3) 01/05/18 06:07 [place] # (Auto) 0.7 K/uL (0.0-0.8) 01/05/18 06:07 Eos # (Auto) 0.7 K/uL (0.0-0.7) 01/05/18 06:07 Baso # (Auto) 0.1 K/uL (0.0-0.2) 01/05/18 06:07 Neutrophils % (Manual) 78 % (50-75) H 01/05/18 06:07 Band Neutrophils % 1 % (0-2) 01/05/18 06:07 Lymphocytes % (Manual) 10 % (20-40) L 01/05/18 06:07 Monocytes % (Manual) 5 % (0-10) 01/05/18 06:07 Eosinophils % (Manual) 6 % (0-4) H 01/05/18 06:07 Basophils % (Manual) 1 % (0-2) 12/31/17 11:38 Toxic Granulation Present 01/03/18 06:26 Platelet Estimate Normal (NORMAL) 01/05/18 06:07 Large Platelets Present 01/02/18 06:21 RBC Morphology Normal 01/01/18 05:57 Polychromasia Slight 01/03/18 06:26 Hypochromasia (manual) Slight 01/05/18 06:07 Poikilocytosis (manual Slight 01/05/18 06:07 Anisocytosis (manual) Slight 01/05/18 06:07 Sodium 130 mmol/L (132-148) L 01/06/18 08:17 Potassium 3.5 mmol/L (3.6-5.2) L 01/06/18 08:17 Chloride 92 mmol/L (98-107) L 01/06/18 08:17 Carbon Dioxide 31 mmol/L (22-30) H 01/06/18 08:17 Anion Gap 11 (10-20) 01/06/18 08:17 BUN 25 mg/dL (7-17) H 01/06/18 08:17 Creatinine 5.3 mg/dL (0.7-1.2) H 01/06/18 08:17 Est GFR ( Amer) 10 01/06/18 08:17 Est GFR (Non-Af Amer) 8 01/06/18 08:17 Random Glucose 106 mg/dL (65-105) H 01/06/18 08:17 Calcium 9.6 mg/dl (8.6-10.4) 01/06/18 08:17 Phosphorus 2.4 mg/dL (2.5-4.5) L 01/01/18 05:57 Magnesium 1.8 mg/dL (1.6-2.3) 01/01/18 05:57 Total Bilirubin 0.3 mg/dL (0.2-1.3) 01/05/18 06:07 AST 18 U/L (14-36) 01/05/18 06:07 ALT 13 U/L (9-52) 01/05/18 06:07 Alkaline Phosphatase 127 U/L (38-126) H 01/05/18 06:07 NT-Pro-B Natriuret Pep 04154 pg/mL (0-900) H 01/01/18 05:57 Total Protein 5.7 g/dL (6.3-8.3) L 01/05/18 06:07 Albumin 2.7 g/dL (3.5-5.0) L 01/05/18 06:07 Globulin 3.0 gm/dL (2.2-3.9) 01/05/18 06:07 Albumin/Globulin Ratio 0.9 (1.0-2.1) L 01/05/18 06:07 PTH Intact Whole Molec 14 pg/mL (14-64) 01/01/18 05:57 - Hospital Course Hospital Course: This is a 67 y/o female with known ESRD on pertoneal dialysis for about 5-6 years now who was admitted because of incessant coughing spells and shortness of brath. She was found to have LLL infiltrate on the CXR and hence she was admitted. She was also found to be hyponatremic with Serum Na of 124 on admission. She had blood and sputum c/s sent to the lab and was started on IV antibiotic empirically. She also had nebulizeer treatments and cough syrup as needed for cough. Nephrology and Pulmonary consultations were obtained. She was initially put on Azithromycin and Zosyn IV. She gradually improved and her hoarseness and cough got better. Her sputum grew Staph aureus and hence she was put on Cipro po to take home. She will be going home today to follow up in the office in 2 weeks. Discharge Exam - Head Exam Head Exam: NORMAL INSPECTION - Eye Exam Eye Exam: Normal appearance, PERRL - Neck Exam Neck exam: Normal Inspection - Respiratory Exam Respiratory Exam: Clear to PA & Lateral, UNREMARKABLE - Cardiovascular Exam Cardiovascular Exam: REGULAR RHYTHM, +S1, +S2 - GI/Abdominal Exam GI & Abdominal Exam: Normal Bowel Sounds, Soft, Unremarkable - Extremities Exam Extremities exam: normal inspection - Neurological Exam Neurological exam: Alert, Oriented x3 - Skin Skin Exam: Dry, Intact, Normal Color, Warm Discharge Plan - Follow Up Plan Condition: STABLE Disposition: HOME/ ROUTINE Instructions: Pneumonia, Adult (DC), End Stage Kidney Disease (DC), Dialysis and Diet Referrals: Pattie Hudson MD [Staff Provider] -
== END 2018-01-06 17:00 | disposition home or self-care (01) | DRG 193 ==
LOC: C.ER 23:11 → C.9E 12-31 01:19 → C.9I 12-31 10:03 → C.5S 01-05 13:08
PROVIDERS: ADMIT Internal Medicine Cardiovascular Disease; ATTEND Internal Medicine Cardiovascular Disease
PROC: 3E1M39Z Irrigation of Peritoneal Cavity using Dialysate, Percutaneous Approach (ICD-10-PCS; principal; 2017-12-31)
DX: J18.9 Pneumonia, unspecified organism (principal); N18.6 End stage renal disease; I12.0 Hypertensive chronic kidney disease with stage 5 chronic kidney disease or end stage renal disease; J04.0 Acute laryngitis; E87.1 Hypo-osmolality and hyponatremia; Z99.2 Dependence on renal dialysis; E87.6 Hypokalemia; T50.2X5A Adverse effect of carbonic-anhydrase inhibitors, benzothiadiazides and other diuretics, initial encounter

== ENCOUNTER 2018-03-07 08:56 | Emergency (ER) | payer MEDICARE ==
[2018-03-07 09:12] VITALS: BP 156/99; PULSE 105; RESP 18; TEMP 98.1; O2SAT 99
--- NOTE | 2018-03-07 09:19 | C.PDOC ---
History Of Present Illness 68 years old female presents to ED for complaints of new onset rash on right chest wall associated with itching that began 3 days ago. Denies any other physical complaints. NEW ONSET RASH R CHEST WALL X 3 DAYS. +ITCH. DENIES OTHER ASSOC SX. EXAM NAD NONTOXIC SKIN +SHINGLES R MID BACK TO R CHEST WALL, BREAST. NO CELLULITIS REMAINDER NEG Time Seen by Provider: 03/07/18 09:13 Chief Complaint (Nursing): Abnormal Skin Integrity History Per: Patient History/Exam Limitations: no limitations Onset/Duration Of Symptoms: Hrs Current Symptoms Are (Timing): Still Present Quality Of Symptoms: Itching Recent travel outside of the [place]: No Past Medical History Reviewed: Historical Data, Nursing Documentation, Vital Signs Vital Signs: Last Vital Signs Temp 98.1 F 03/07/18 09:09 Pulse 105 H 03/07/18 09:09 Resp 18 03/07/18 09:09 BP 156/99 H 03/07/18 09:09 Pulse Ox 99 03/07/18 09:09 - Medical History PMH: Arthritis, HTN, End Stage Renal Disease, Chronic Kidney Disease - [facility] DRAINAGE OF LEFT KNEE JOINT, PERCUTANEOUS APPROACH, DIAGN (08/29/17) IRRIGATION OF PERITON CAV USING DIALYSATE, PERC APPROACH (12/31/17) Family History: States: Unknown Family Hx - Social History Hx Alcohol Use: No Hx Substance Use: No - Immunization History Hx Tetanus Toxoid Vaccination: No Hx Influenza Vaccination: Yes Hx Pneumococcal Vaccination: No Review Of Systems Except As Marked, All Systems Reviewed And Found Negative. Skin: Positive for: Rash (On right chest wall ) Physical Exam - Physical Exam Appears: Well, Non-toxic, No Acute Distress Skin: Normal Color, Warm, Dry, Other (POSITIVE SHINGLES RIGHT MID BACK TO RIGHT CHEST WALL/ BREAST. NO CELLULITIS) Head: Atraumatic, Normacephalic Eye(s): bilateral: Normal Inspection, PERRL, EOMI Oral Mucosa: Moist Throat: Normal, No Erythema, No Exudate, No Drooling Neck: Supple Chest: Symmetrical, No Tenderness Cardiovascular: Rhythm Regular, No Murmur Respiratory: Normal Breath Sounds, No Rales, No Rhonchi, No Wheezing, Other (NARD) Gastrointestinal/Abdominal: Bowel Sounds (Active ), Soft, No Tenderness Extremity: Normal ROM Extremity: Bilateral: Atraumatic, Normal Color And Temperature, Normal ROM Pulses: Left Radial: Normal, Right Radial: Normal Neurological/Psych: Oriented x3, Normal Speech Gait: Steady ED Course And Treatment O2 Sat by Pulse Oximetry: 99 (RA) Pulse Ox Interpretation: Normal Medical Decision Making Medical Decision Making: Plan: * Prednisone * Valtrex * Benadryl Progress: Upon re-evaluation, patient is feeling much better and is stable for discharge. Counseling has been provided to patient. Return if symptoms persist or acutely worsen. Patient is medically stable and ready for discharge. Disposition Counseled Patient/Family Regarding: Diagnosis, Need For Followup, Rx Given - Disposition Referrals: YOUR,PMD [Other] Disposition: HOME/ ROUTINE Disposition Time: 09:27 Condition: IMPROVED Prescriptions: Acetaminophen [Tylenol Extra Strength] 2 tab PO Q6 #30 tablet DiphenhydrAMINE [Benadryl] 25 mg PO TID PRN #30 cap PRN Reason: Itching / Pruritus predniSONE [Prednisone] 60 mg PO DAILY #12 tab Valacyclovir HCl [Valtrex] 1,000 mg PO TID #21 tablet Instructions: Shingles (DC) Forms: [id number] (Yakut) - Clinical Impression Clinical Impression: Herpes zoster - Scribe Statement The provider has reviewed the documentation as recorded by the Scribe Sissy Ascencio All medical record entries made by the Jasibe were at my direction and personally dictated by me. I have reviewed the chart and agree that the record accurately reflects my personal performance of the history, physical exam, medical decision making, and the department course for this patient. I have also personally directed, reviewed, and agree with the discharge instructions and disposition.
== END 2018-03-07 10:08 | disposition home or self-care (01) ==
LOC: C.ER 08:56
DX: B02.9 Zoster without complications (principal)